=== PATIENT | male | born 1970 | race Two or more races ===

== ENCOUNTER 2018-05-12 11:33 | Emergency (ER) | payer MEDICAID, OTHER ==
[~2018-05-12] VITALS: Ht 165.1 cm; Wt 68.0 kg
[2018-05-12 11:43] VITALS: BP 150/100
[2018-05-12] MEDS ORDERED: LORazepam 2MG/ML-1ML VIAL IM ONE (12:30)
== END 2018-05-12 13:08 | disposition home or self-care (01) ==
LOC: ER 11:35
DX: F41.1 Generalized anxiety disorder (principal); M54.2 Cervicalgia
CPT/HCPCS: 96372; 99284; J2060

== ENCOUNTER 2018-06-24 10:36 | Emergency (ER) | payer MEDICAID ==
[~2018-06-24] VITALS: Ht 165.1 cm; Wt 65.8 kg
[2018-06-24] MEDS ORDERED: SODIUM CHLORIDE 0.9% 1,000 ML IV ONE (11:02)
[2018-06-24] MEDS ORDERED: PANTOPRAZOLE 40 MG/10 ML VIAL IV ONE (11:15)
[2018-06-24] MEDS ORDERED: ONDANSETRON HCL 4 MG/2 ML VIAL IV ONE (11:15)
[2018-06-24] MEDS ORDERED: KETOROLAC TROMETH 30 MG/ML 1ML VIAL IV ONE (11:15)
[2018-06-24] MEDS ORDERED: FAMOTIDINE (10MG/ML) 2ML VL IV ONE (12:15)
[2018-06-24 12:19] LABS: Calcium 7.9 mg/dL (8.5-10.1); Magnesium 2.3 mg/dL (1.6-2.6); Potassium 3.8 mmol/L (3.5-5.1)
[2018-06-24 12:23] LABS: BUN/Creatinine Ratio 4.3; Bilirubin, Total 0.6 mg/dL (0.2-1.0)
[2018-06-24 12:25] LABS: Basophils # (auto) 0.1 uL; Basophils % (auto) 1.6 % (0.0-2.0); Eosinophils # (auto) 0 uL; Eosinophils % (auto) 0.2 % (0.0-7.0); Hematocrit 41.7 % (41.0-53.0); Hemoglobin 14.3 g/dL (13.5-17.5); Lymphocytes # (auto) 1.4 uL; Lymphocytes % (auto) 38.5 % (10.0-50.0); Mean Corpuscular Hemoglobin 30.7 pg (28.0-32.0); Mean Corpuscular Hgb Conc. 34.3 g/dL (32.0-36.0); Mean Corpuscular Volume 89.3 fL (80.0-100.0); Monocytes # (auto) 0.2 uL; Monocytes % (auto) 5.9 % (0.0-12.0); Neutrophils # (auto) 1.9 uL; Neutrophils % (auto) 53.8 % (37.0-80.0); Nucleated Red Blood Cells % 0.2 %; Platelet Count (auto) 140 10^3/uL (140-450); Red Blood Cells 4.67 10^6/uL (4.5-5.90); Red Cell Distribution Width 12.8 % (11.8-14.3); White Blood Cell 3.5 10^3/uL (4.4-10.8)
[2018-06-24 14:23] VITALS: BP 139/88
== END 2018-06-24 14:25 | disposition home or self-care (01) ==
LOC: ER 10:36
DX: F41.9 Anxiety disorder, unspecified (principal); F10.10 Alcohol abuse, uncomplicated
CPT/HCPCS: 36415; 80053; 80320; 83735; 85025; 94761; 96374; 96375; 99284; J1885; J2405; J3490

== ENCOUNTER 2018-08-01 17:54 | Inpatient (IN) | payer MEDICAID | END 2018-08-10 18:15 | disposition home or self-care (01) | LOC: TELE-WESTW 08-08 06:42 → ER 17:54 → TELE 22:18 → ICU WEST 08-02 20:42 | PROC: 5A1955Z Respiratory Ventilation, Greater than 96 Consecutive Hours (ICD-10-PCS; principal; ~2018-08-01) | PROC: 0BH17EZ Insertion of Endotracheal Airway into Trachea, Via Natural or Artificial Opening (ICD-10-PCS; ~2018-08-01) | DX: T42.4X2A Poisoning by benzodiazepines, intentional self-harm, initial encounter (principal); J96.00 Acute respiratory failure, unspecified whether with hypoxia or hypercapnia; N17.0 Acute kidney failure with tubular necrosis; J69.0 Pneumonitis due to inhalation of food and vomit; G92 Toxic encephalopathy; J15.0 Pneumonia due to Klebsiella pneumoniae; F10.231 Alcohol dependence with withdrawal delirium; F12.90 Cannabis use, unspecified, uncomplicated; T14.91XA Suicide attempt, initial encounter; F32.9 Major depressive disorder, single episode, unspecified; F10.10 Alcohol abuse, uncomplicated; I95.9 Hypotension, unspecified; I50.9 Heart failure, unspecified ==

== ENCOUNTER 2018-12-06 18:46 | Emergency (ER) | payer MEDICAID ==
[~2018-12-06] VITALS: Ht 167.6 cm; Wt 67.1 kg
[~2018-12-06 18:46] MED LIST: LEVO750T2 PO
[2018-12-06 18:49] VITALS: BP 146/101
[2018-12-06 20:00] LABS: Alanine Aminotransferase 33 U/L (16-61); Albumin 4.1 g/dL (3.4-5.0); Anion Gap 7 (5-15); Aspartate Aminotransferase 43 U/L (15-37); BUN/Creatinine Ratio 17.1; Blood Urea Nitrogen 21 mg/dL (7-18); Calcium 8.4 mg/dL (8.5-10.1); Carbon Dioxide 21 mmol/L (21-32); Chloride 112 mmol/L (98-107); GFR African American 80 mL/min; GFR Non-African American 66 mL/min; Glucose 113 mg/dL (74-106); Potassium 3.6 mmol/L (3.5-5.1); Sodium 140 mmol/L (136-145)
[2018-12-06 20:02] LABS: Basophils # (auto) 0 uL; Basophils % (auto) 0.7 % (0.0-2.0); Eosinophils # (auto) 0.1 uL; Eosinophils % (auto) 2.3 % (0.0-7.0); Hematocrit 42.3 % (41.0-53.0); Hemoglobin 14.5 g/dL (13.5-17.5); Lymphocytes # (auto) 2.6 uL; Lymphocytes % (auto) 40.9 % (10.0-50.0); Mean Corpuscular Hemoglobin 30.8 pg (28.0-32.0); Mean Corpuscular Hgb Conc. 34.3 g/dL (32.0-36.0); Mean Corpuscular Volume 89.9 fL (80.0-100.0); Monocytes # (auto) 0.4 uL; Monocytes % (auto) 6.4 % (0.0-12.0); Neutrophils # (auto) 3.2 uL; Neutrophils % (auto) 49.7 % (37.0-80.0); Nucleated Red Blood Cells % 0.1 %; Platelet Count (auto) 208 10^3/uL (140-450); Red Blood Cells 4.71 10^6/uL (4.5-5.90); White Blood Cell 6.5 10^3/uL (4.4-10.8)
[2018-12-06 20:04] LABS: Alkaline Phosphatase 82 U/L (45-117); Bilirubin, Total 0.4 mg/dL (0.2-1.0)
== END 2018-12-06 23:00 | disposition left against medical advice (07) ==
LOC: ER 18:50
DX: R07.89 Other chest pain (principal); Z53.21 Procedure and treatment not carried out due to patient leaving prior to being seen by health care provider
CPT/HCPCS: 36415; 71046; 80053; 84484; 85025

== ENCOUNTER 2018-12-08 09:25 | Emergency (ER) | payer MEDICAID ==
[~2018-12-08] VITALS: Ht 165.1 cm; Wt 65.8 kg
[2018-12-08 09:31] VITALS: BP 158/94
[2018-12-08] MEDS ORDERED: ONDANSETRON ODT 4 MG TAB PO ONE (10:45)
[2018-12-08] MEDS ORDERED: DICYCLOMINE HCL (10MG/ML) 2 ML AMPULE IM ONE (10:45)
== END 2018-12-08 11:09 | disposition home or self-care (01) ==
LOC: ER 09:25
DX: K29.00 Acute gastritis without bleeding (principal)
CPT/HCPCS: 96372; 99283; J0500; Q0162

== ENCOUNTER 2019-05-01 03:22 | Emergency (ER) | payer MEDICAID ==
[~2019-05-01] VITALS: Ht 165.1 cm; Wt 74.2 kg
[2019-05-01 04:04] VITALS: BP 137/98
[2019-05-01 04:22] LABS: Basophils # (auto) 0 10 ^3/uL (0-0.2); Basophils % (auto) 0.6 % (0.0-2.0); Eosinophils # (auto) 0 10 ^3/uL (0-0.8); Eosinophils % (auto) 0.7 % (0.0-7.0); Hematocrit 42.8 % (41.0-53.0); Hemoglobin 14.6 g/dL (13.5-17.5); Lymphocytes # (auto) 1.4 10 ^3/uL (0.4-5.4); Lymphocytes % (auto) 22.1 % (10.0-50.0); Mean Corpuscular Hemoglobin 30.6 pg (28.0-32.0); Mean Corpuscular Hgb Conc. 34.2 g/dL (32.0-36.0); Mean Corpuscular Volume 89.7 fL (80.0-100.0); Monocytes # (auto) 0.3 10 ^3/uL (0-1.3); Neutrophils # (auto) 4.6 10 ^3/uL (1.6-8.6); Neutrophils % (auto) 71.6 % (37.0-80.0); Platelet Count (auto) 181 10^3/uL (140-450); Red Blood Cells 4.77 10^6/uL (4.5-5.90); Red Cell Distribution Width 13.3 % (11.8-14.3); White Blood Cell 6.4 10^3/uL (4.4-10.8)
[2019-05-01] MEDS ORDERED: LORazepam 2MG/ML-1ML VIAL IV ONE ×2 (04:30→05:45)
[2019-05-01] MEDS ORDERED: LORazepam 0.5 MG TAB PO ONE (04:30)
[2019-05-01 04:42] LABS: Albumin 4.2 g/dL (3.4-5.0); Potassium 3.6 mmol/L (3.5-5.1)
[2019-05-01 04:46] LABS: BUN/Creatinine Ratio 13.2; Bilirubin, Total 0.3 mg/dL (0.2-1.0); Total Protein 8.3 g/dL (6.4-8.2)
[2019-05-01 05:26] LABS: Amphetamine Screen, Urine NEGATIVE (NEGATIVE); Barbiturate Scree,Urine NEGATIVE (NEGATIVE); Benzodiazephine Screen, Urine NEGATIVE (NEGATIVE); Cannabinoid Screen, Urine NEGATIVE (NEGATIVE); Cocaine Screen, Urine NEGATIVE (NEGATIVE); Opiate Scree,Urine NEGATIVE (NEGATIVE); Phencyclidine Screen, Urine NEGATIVE (NEGATIVE)
== END 2019-05-01 05:55 | disposition home or self-care (01) ==
LOC: ER 03:29
DX: F41.1 Generalized anxiety disorder (principal); F43.0 Acute stress reaction; F10.20 Alcohol dependence, uncomplicated; F32.9 Major depressive disorder, single episode, unspecified; Y90.0 Blood alcohol level of less than 20 mg/100 ml
CPT/HCPCS: 36415; 80053; 80307; 85025; 96374; 96376; 99284; J2060

== ENCOUNTER 2020-08-28 14:13 | Emergency (ER) | payer MEDICAID ==
[~2020-08-28] VITALS: Ht 165.1 cm; Wt 65.8 kg
[~2020-08-28 14:13] MED LIST changes: -LEVO750T2 PO; +LEVO750T8 PO
[2020-08-28] MEDS ORDERED: SODIUM CHLORIDE 0.9% 500 ML IV ONE (14:30)
[2020-08-28] MEDS ORDERED: ACETYLCYSTEINE ORAL for CIN 20%(200MG/ML) 4ML PO ONE (14:45)
[2020-08-28 15:14] LABS: Basophils # (auto) 0.1 10 ^3/uL (0-0.2); Basophils % (auto) 1.8 % (0.0-2.0); Eosinophils # (auto) 0 10 ^3/uL (0-0.8); Eosinophils % (auto) 0.5 % (0.0-7.0); Hematocrit 40.3 % (41.0-53.0); Hemoglobin 14.3 g/dL (13.5-17.5); Lymphocytes % (auto) 45.4 % (10.0-50.0); Mean Corpuscular Hgb Conc. 35.5 g/dL (32.0-36.0); Mean Corpuscular Volume 87.4 fL (80.0-100.0); Monocytes # (auto) 0.3 10 ^3/uL (0-1.3); Monocytes % (auto) 5.7 % (0.0-12.0); Neutrophils # (auto) 2.1 10 ^3/uL (1.6-8.6); Neutrophils % (auto) 46.6 % (37.0-80.0); Nucleated Red Blood Cells % 0.1 %; Platelet Count (auto) 184 10^3/uL (140-450); Red Blood Cells 4.61 10^6/uL (4.5-5.90); Red Cell Distribution Width 13.8 % (11.8-14.3); White Blood Cell 4.5 10^3/uL (4.4-10.8)
[2020-08-28] MEDS ORDERED: ACETYLCYSTEINE 20%(200MG/ML) SOLN 30ML PO ONE (15:15)
[2020-08-28] MEDS ORDERED: ACETYLCYSTEINE 20%(200MG/ML) SOLN 30ML IN ONE (15:15)
[2020-08-28 15:21] LABS: Albumin 3.6 g/dL (3.4-5.0); BUN/Creatinine Ratio 8.5; Calcium 8.1 mg/dL (8.5-10.1); Magnesium 1.9 mg/dL (1.6-2.6); Potassium 3.8 mmol/L (3.5-5.1); Salicylate < 1.7 mg/dL (2.8-20.0)
[2020-08-28 15:23] LABS: Acetaminophen < 2.0 ug/mL (10-30)
[2020-08-28 15:24] LABS: Bilirubin, Total 0.3 mg/dL (0.2-1.0); Total Protein 7.8 g/dL (6.4-8.2)
[2020-08-28] MEDS ORDERED: ONDANSETRON HCL 4 MG/2 ML VIAL IV ONE ×2 (17:00→20:15)
[2020-08-28] MEDS ORDERED: ONDANSETRON HCL 4 MG/2 ML VIAL ONE (20:04)
[2020-08-29] MEDS ORDERED: LORazepam 2MG/ML-1ML VIAL IM ONE (01:15)
[2020-08-29] MEDS ORDERED: IBUPROFEN 800 MG TAB PO ONE (04:15)
[2020-08-29] MEDS: LORazepam 2MG/ML-1ML VIAL IM PRN ×3 (07:52→20:35)
[2020-08-29 08:40] LABS: Amphetamine Screen, Urine NEGATIVE (NEGATIVE); Barbiturate Scree,Urine NEGATIVE (NEGATIVE); Benzodiazephine Screen, Urine POSITIVE (NEGATIVE); Cocaine Screen, Urine NEGATIVE (NEGATIVE); Opiate Scree,Urine NEGATIVE (NEGATIVE); Phencyclidine Screen, Urine NEGATIVE (NEGATIVE)
[2020-08-29 08:47] LABS: Cannabinoid Screen, Urine POSITIVE (NEGATIVE)
[2020-08-30] MEDS: LORazepam 2MG/ML-1ML VIAL IM PRN ×3 (02:44→22:02)
[2020-08-30] MEDS ORDERED: ONDANSETRON ODT 4 MG TAB PO ONE (09:45)
[2020-08-30] MEDS ORDERED: SERTRALINE HCL 50 MG TAB PO ONE (09:45)
[2020-08-30] MEDS ORDERED: LORazepam 0.5 MG TAB PO ONE (14:00)
[2020-08-30] MEDS ORDERED: ACETAMINOPHEN 325 MG TAB PO ONE (20:00)
[2020-08-31] MEDS: LORazepam 2MG/ML-1ML VIAL IM PRN ×2 (05:17→14:04)
[2020-08-31] MEDS ORDERED: ONDANSETRON ODT 4 MG TAB PO ONE (12:00)
[2020-08-31 17:31] VITALS: BP 125/89
== END 2020-08-31 17:20 | disposition short-term general hospital (02) ==
LOC: ER 14:13
DX: T43.212A Poisoning by selective serotonin and norepinephrine reuptake inhibitors, intentional self-harm, initial encounter (principal); T45.0X2A Poisoning by antiallergic and antiemetic drugs, intentional self-harm, initial encounter; T39.1X2A Poisoning by 4-Aminophenol derivatives, intentional self-harm, initial encounter; F32.9 Major depressive disorder, single episode, unspecified; F41.9 Anxiety disorder, unspecified; Z79.2 Long term (current) use of antibiotics; Z20.822 Contact with and (suspected) exposure to COVID-19; Y92.89 Other specified places as the place of occurrence of the external cause
CPT/HCPCS: 36415; 80053; 80307; 80320; 80329; 83735; 85025; 85049; 87426; 93005; 96361; 96372; 96374; 96376; 99285; J2060; J2405; Q0162

== ENCOUNTER 2020-11-27 19:06 | Emergency (ER) | payer MEDICAID ==
[~2020-11-27] VITALS: Ht 167.6 cm; Wt 72.6 kg
[2020-11-27 19:09] VITALS: BP 143/96
== END 2020-11-27 21:50 | disposition left against medical advice (07) ==
LOC: ER 19:07
DX: R51.9 Headache, unspecified (principal); Z53.21 Procedure and treatment not carried out due to patient leaving prior to being seen by health care provider

== ENCOUNTER 2020-12-24 17:50 | Emergency (ER) | payer MEDICAID ==
[~2020-12-24] VITALS: Ht 167.6 cm; Wt 68.0 kg
[2020-12-24 20:14] VITALS: BP 149/104
== END 2020-12-24 20:30 | disposition home or self-care (01) ==
LOC: ER 17:50
DX: M17.11 Unilateral primary osteoarthritis, right knee (principal); D48.0 Neoplasm of uncertain behavior of bone and articular cartilage; Z79.2 Long term (current) use of antibiotics
CPT/HCPCS: 73562

== ENCOUNTER 2021-01-19 18:10 | Emergency (ER) | payer MEDICAID ==
[~2021-01-19] VITALS: Ht 165.1 cm; Wt 68.0 kg
[2021-01-20] MEDS ORDERED: LORazepam 2MG/ML-1ML VIAL IM ONE
[2021-01-20 01:40] VITALS: BP 134/95
== END 2021-01-20 01:51 | disposition home or self-care (01) ==
LOC: ER 18:11
DX: F41.8 Other specified anxiety disorders (principal); F41.0 Panic disorder [episodic paroxysmal anxiety]; F43.0 Acute stress reaction
CPT/HCPCS: 96372; 99283; J2060

== ENCOUNTER 2021-03-10 08:27 | Emergency (ER) | payer MEDICAID ==
[~2021-03-10] VITALS: Ht 165.1 cm; Wt 65.8 kg
[2021-03-10 09:21] VITALS: BP 165/91
[2021-03-10] MEDS ORDERED: NAPR500T31 PO (10:05)
== END 2021-03-10 10:29 | disposition home or self-care (01) ==
LOC: ER 08:27
DX: S01.312A Laceration without foreign body of left ear, initial encounter (principal); F41.9 Anxiety disorder, unspecified; F32.9 Major depressive disorder, single episode, unspecified; W01.0XXA Fall on same level from slipping, tripping and stumbling without subsequent striking against object, initial encounter; Y93.E1 Activity, personal bathing and showering; Y92.091 Bathroom in other non-institutional residence as the place of occurrence of the external cause; Y99.8 Other external cause status
CPT/HCPCS: 12011; 99282; J2001

== ENCOUNTER 2021-03-12 16:00 | Emergency (ER) | payer MEDICAID ==
[~2021-03-12] VITALS: Ht 165.1 cm; Wt 65.8 kg
[~2021-03-12 16:00] MED LIST changes: +NAPR500T31 PO
[2021-03-12 16:06] VITALS: BP 141/100
[2021-03-12] MEDS ORDERED: THIAMINE 100mg/ml INJ (200mg/2ml VIAL) IV ONE (17:00)
[2021-03-12] MEDS ORDERED: chlordiazePOXIDE HCL 25 MG CAP PO ONE (17:00)
[2021-03-12] MEDS ORDERED: SODIUM CHLORIDE 0.9% 1,000 ML IV ONE ×2 (17:00)
[2021-03-12 18:43] LABS: Mean Corpuscular Volume 86.8 fL (80.0-100.0); Red Cell Distribution Width 13.6 % (11.8-14.3)
[2021-03-12 18:55] LABS: Basophils # (auto) 0 10 ^3/uL (0-0.2); Basophils % (auto) 0.8 % (0.0-2.0); Eosinophils # (auto) 0 10 ^3/uL (0-0.8); Eosinophils % (auto) 0.2 % (0.0-7.0); Hematocrit 38.6 % (41.0-53.0); Hemoglobin 13.1 g/dL (13.5-17.5); Lymphocytes # (auto) 1.7 10 ^3/uL (0.4-5.4); Lymphocytes % (auto) 28.2 % (10.0-50.0); Mean Corpuscular Hemoglobin 29.4 pg (28.0-32.0); Mean Corpuscular Hgb Conc. 33.9 g/dL (32.0-36.0); Monocytes # (auto) 0.3 10 ^3/uL (0-1.3); Monocytes % (auto) 4.7 % (0.0-12.0); Neutrophils % (auto) 66.1 % (37.0-80.0); Nucleated Red Blood Cells % 0.2 %; Red Blood Cells 4.45 10^6/uL (4.5-5.90); White Blood Cell 6.1 10^3/uL (4.4-10.8)
[2021-03-12 18:56] LABS: Albumin 3.4 g/dL (3.4-5.0); BUN/Creatinine Ratio 6.5; Calcium 8.1 mg/dL (8.5-10.1); Potassium 3.8 mmol/L (3.5-5.1)
[2021-03-12 18:59] LABS: Bilirubin, Total 0.3 mg/dL (0.2-1.0); Total Protein 7.5 g/dL (6.4-8.2)
== END 2021-03-13 06:12 | disposition home or self-care (01) ==
LOC: ER 16:00
DX: F10.129 Alcohol abuse with intoxication, unspecified (principal); F12.10 Cannabis abuse, uncomplicated; R11.2 Nausea with vomiting, unspecified; R42 Dizziness and giddiness; R55 Syncope and collapse; Y90.8 Blood alcohol level of 240 mg/100 ml or more
CPT/HCPCS: 36415; 70450; 80053; 80320; 85025; 96361; 96374; 99284; J3411; J7030

== ENCOUNTER 2021-03-25 13:35 | Emergency (ER) | payer MEDICAID ==
[~2021-03-25] VITALS: Ht 167.6 cm; Wt 65.8 kg
[2021-03-25 14:07] VITALS: BP 143/86
[2021-03-25] MEDS ORDERED: SULF400T11 PO (14:24)
[2021-03-25] MEDS ORDERED: LIDOCAINE 1% HCL (LOCAL ANESTH.) INJ 20ML MDV ONE (14:29)
[2021-03-25] MEDS ORDERED: cefTRIAXone SOD 1,000 MG VL IM ONE (14:30)
== END 2021-03-25 14:42 | disposition home or self-care (01) ==
LOC: ER 13:35
DX: L02.512 Cutaneous abscess of left hand (principal)
CPT/HCPCS: 26010; 73130; 96372; 99283; J0696; J2001

== ENCOUNTER 2021-03-27 12:51 | Emergency (ER) | payer MEDICAID ==
[~2021-03-27] VITALS: Ht 167.6 cm; Wt 65.8 kg
[~2021-03-27 12:51] MED LIST changes: +SULF400T11 PO
[2021-03-27 13:28] VITALS: BP 154/97
== END 2021-03-27 14:49 | disposition home or self-care (01) ==
LOC: ER 12:51
DX: L02.512 Cutaneous abscess of left hand (principal); F12.10 Cannabis abuse, uncomplicated; Z48.00 Encounter for change or removal of nonsurgical wound dressing; Z76.0 Encounter for issue of repeat prescription

== ENCOUNTER 2021-06-06 12:26 | Emergency (ER) | payer MEDICAID ==
[~2021-06-06] VITALS: Ht 167.6 cm; Wt 65.8 kg
[2021-06-06 15:00] VITALS: BP 127/86
== END 2021-06-06 15:30 | disposition home or self-care (01) ==
LOC: ER 12:26
DX: S63.502A Unspecified sprain of left wrist, initial encounter (principal); S63.92XA Sprain of unspecified part of left wrist and hand, initial encounter; Y93.89 Activity, other specified; Y92.89 Other specified places as the place of occurrence of the external cause; Y99.8 Other external cause status
CPT/HCPCS: 29125; 73130

== ENCOUNTER 2021-09-24 16:13 | Emergency (ER) | payer MEDICAID ==
[~2021-09-24] VITALS: Ht 167.6 cm; Wt 68.1 kg
[2021-09-24 17:22] LABS: Basophils # (auto) 0.1 10 ^3/uL (0-0.2); Basophils % (auto) 0.9 % (0.0-2.0); Eosinophils # (auto) 0 10 ^3/uL (0-0.8); Eosinophils % (auto) 0.4 % (0.0-7.0); Hemoglobin 14.7 g/dL (13.5-17.5); Lymphocytes # (auto) 2.1 10 ^3/uL (0.4-5.4); Lymphocytes % (auto) 32.6 % (10.0-50.0); Mean Corpuscular Hemoglobin 28.3 pg (28.0-32.0); Mean Corpuscular Hgb Conc. 32.8 g/dL (32.0-36.0); Mean Corpuscular Volume 86.5 fL (80.0-100.0); Monocytes # (auto) 0.4 10 ^3/uL (0-1.3); Monocytes % (auto) 5.3 % (0.0-12.0); Neutrophils % (auto) 60.8 % (37.0-80.0); Nucleated Red Blood Cells % 0.1 %; Red Cell Distribution Width 14.7 % (11.8-14.3); White Blood Cell 6.6 10^3/uL (4.4-10.8)
[2021-09-24 17:35] LABS: Alanine Aminotransferase 65 U/L (16-61); Albumin 4.5 g/dL (3.4-5.0); Anion Gap 8 (5-15); Aspartate Aminotransferase 74 U/L (15-37); BUN/Creatinine Ratio 20.7; Blood Alcohol < 3.0 mg/dL (0-5); Blood Urea Nitrogen 24 mg/dL (7-18); Carbon Dioxide 21 mmol/L (21-32); Chloride 106 mmol/L (98-107); GFR African American 85 mL/min; GFR Non-African American 70 mL/min; Glucose 96 mg/dL (74-106); Potassium 4.1 mmol/L (3.5-5.1); Sodium 135 mmol/L (136-145)
[2021-09-24 17:38] LABS: Alkaline Phosphatase 91 U/L (45-117); Bilirubin, Total 0.4 mg/dL (0.2-1.0)
[2021-09-24] MEDS ORDERED: LORazepam 2MG/ML-1ML VIAL IM ONE (18:30)
[2021-09-24] MEDS ORDERED: CHL25C PO (18:42)
[2021-09-24 19:00] VITALS: BP 130/84
[2021-09-24] MEDS ORDERED: MIDAZOLAM HCL 5 MG/ML-1ML VIAL IM ONE (19:45)
[2021-09-24 20:25] LABS: Urine Bacteria NONE SEEN /hpf (None Seen); Urine Blood Negative /uL (Negative); Urine Specific Gravity 1.019 (1.001-1.035); Urine Sperm PRESENT /hpf (None Seen); Urine WBC 2 /hpf (0 - 3)
[2021-09-24 20:43] LABS: Alcohol, Urine < 3.0 mg/dL (0-10); Barbiturate Scree,Urine NEGATIVE (NEGATIVE); Benzodiazephine Screen, Urine POSITIVE (NEGATIVE); Cannabinoid Screen, Urine NEGATIVE (NEGATIVE); Cocaine Screen, Urine NEGATIVE (NEGATIVE); Opiate Scree,Urine NEGATIVE (NEGATIVE); Phencyclidine Screen, Urine NEGATIVE (NEGATIVE)
[2021-09-24 20:50] LABS: Amphetamine Screen, Urine NEGATIVE (NEGATIVE)
== END 2021-09-24 19:48 | disposition home or self-care (01) ==
LOC: ER 16:13
DX: F10.239 Alcohol dependence with withdrawal, unspecified (principal); Z79.2 Long term (current) use of antibiotics; Z79.899 Other long term (current) drug therapy; Y90.0 Blood alcohol level of less than 20 mg/100 ml
CPT/HCPCS: 36415; 80053; 80307; 80320; 81001; 85025; 93005; 96372; 99284; J2250

== ENCOUNTER 2022-01-10 14:59 | Emergency (ER) | payer MEDICAID ==
[~2022-01-10] VITALS: Ht 167.6 cm; Wt 64.0 kg
[~2022-01-10 14:59] MED LIST changes: +CHL25C PO
[2022-01-10] MEDS ORDERED: ONDANSETRON ODT 4 MG TAB PO ONE (15:30)
[2022-01-10] MEDS ORDERED: chlordiazePOXIDE HCL 25 MG CAP PO ONE (15:30)
[2022-01-10 15:48] LABS: Basophils # (auto) 0.1 10 ^3/uL (0-0.2); Basophils % (auto) 0.5 % (0.0-2.0); Eosinophils # (auto) 0 10 ^3/uL (0-0.8); Eosinophils % (auto) 0.3 % (0.0-7.0); Hematocrit 41.2 % (41.0-53.0); Lymphocytes # (auto) 2.8 10 ^3/uL (0.4-5.4); Lymphocytes % (auto) 29.6 % (10.0-50.0); Mean Corpuscular Hemoglobin 29.9 pg (28.0-32.0); Mean Corpuscular Hgb Conc. 33.9 g/dL (32.0-36.0); Mean Corpuscular Volume 88.1 fL (80.0-100.0); Monocytes # (auto) 0.5 10 ^3/uL (0-1.3); Monocytes % (auto) 5.3 % (0.0-12.0); Neutrophils # (auto) 6.1 10 ^3/uL (1.6-8.6); Neutrophils % (auto) 64.3 % (37.0-80.0); Red Blood Cells 4.67 10^6/uL (4.5-5.90); Red Cell Distribution Width 14.4 % (11.8-14.3); White Blood Cell 9.5 10^3/uL (4.4-10.8)
[2022-01-10 15:59] VITALS: BP 139/103
[2022-01-10 16:08] LABS: Albumin 3.7 g/dL (3.4-5.0); Anion Gap 8 (5-15); Blood Urea Nitrogen 11 mg/dL (7-18); Carbon Dioxide 23 mmol/L (21-32); Chloride 108 mmol/L (98-107); Glucose 124 mg/dL (74-106); Potassium 3.4 mmol/L (3.5-5.1); Sodium 139 mmol/L (136-145)
[2022-01-10 16:10] LABS: Alanine Aminotransferase 53 U/L (16-61); Aspartate Aminotransferase 39 U/L (15-37); BUN/Creatinine Ratio 9.7; Blood Alcohol < 3.0 mg/dL (0-5); GFR African American 87 mL/min; GFR Non-African American 72 mL/min
[2022-01-10 16:13] LABS: Alkaline Phosphatase 96 U/L (45-117); Bilirubin, Total 0.4 mg/dL (0.2-1.0); Total Protein 7.8 g/dL (6.4-8.2)
[2022-01-10 16:36] LABS: Urine Bacteria NONE SEEN /hpf (None Seen); Urine Blood Negative /uL (Negative); Urine Specific Gravity 1.007 (1.001-1.035); Urine WBC <1 /hpf (0 - 3)
[2022-01-10] MEDS ORDERED: ONDA-144 PO (16:41)
[2022-01-10] MEDS ORDERED: CHL10C PO (16:41)
== END 2022-01-10 19:16 | disposition home or self-care (01) ==
LOC: ER 14:59
DX: F10.239 Alcohol dependence with withdrawal, unspecified (principal); I10 Essential (primary) hypertension; Z79.899 Other long term (current) drug therapy; Z79.2 Long term (current) use of antibiotics; Y90.0 Blood alcohol level of less than 20 mg/100 ml
CPT/HCPCS: 36415; 80053; 80320; 81001; 85025

== ENCOUNTER 2022-08-05 11:25 | Emergency (ER) | payer MEDICAID ==
[~2022-08-05] VITALS: Ht 167.6 cm; Wt 76.6 kg
[~2022-08-05 11:25] MED LIST changes: +CHL10C PO; +NAPR-746 PO; -NAPR500T31 PO; +ONDA-144 PO
[2022-08-05 12:21] VITALS: BP 151/100
== END 2022-08-05 12:46 | disposition home or self-care (01) ==
LOC: ER 11:25
DX: K13.1 Cheek and lip biting (principal); F41.9 Anxiety disorder, unspecified; F32.9 Major depressive disorder, single episode, unspecified; I10 Essential (primary) hypertension; F12.10 Cannabis abuse, uncomplicated; Z88.6 Allergy status to analgesic agent

== ENCOUNTER 2022-08-11 23:35 | Inpatient (IN) | payer MEDICAID ==
[~2022-08-11] VITALS: Ht 175.3 cm; Wt 70.0 kg
[2022-08-12] MEDS ORDERED: SODIUM CHLORIDE 0.9% 1,000 ML IV ONE (00:15)
[2022-08-12 01:05] LABS: Albumin 3.8 g/dL (3.4-5.0); BUN/Creatinine Ratio 10.4 (10.0-20.0); Calcium 8.3 mg/dL (8.5-10.1); Magnesium 2.3 mg/dL (1.6-2.6)
[2022-08-12 01:07] LABS: Acetaminophen < 2.0 ug/mL (10-30)
[2022-08-12 01:12] LABS: Bilirubin, Total 0.6 mg/dL (0.2-1.0); Total Protein 8.7 g/dL (6.4-8.2)
[2022-08-12 01:43] LABS: Basophils # (auto) 0 10 ^3/uL (0-0.2); Basophils % (auto) 0.2 % (0.0-2.0); Eosinophils # (auto) 0 10 ^3/uL (0-0.8); Hematocrit 41.6 % (41.0-53.0); Hemoglobin 14.4 g/dL (13.5-17.5); Lymphocytes # (auto) 2.6 10 ^3/uL (0.4-5.4); Lymphocytes % (auto) 20.4 % (10.0-50.0); Mean Corpuscular Hemoglobin 30.4 pg (28.0-32.0); Mean Corpuscular Hgb Conc. 34.5 g/dL (32.0-36.0); Mean Corpuscular Volume 88.1 fL (80.0-100.0); Monocytes # (auto) 0.7 10 ^3/uL (0-1.3); Monocytes % (auto) 5.2 % (0.0-12.0); Neutrophils # (auto) 9.5 10 ^3/uL (1.6-8.6); Neutrophils % (auto) 74.2 % (37.0-80.0); Red Blood Cells 4.72 10^6/uL (4.5-5.90); Red Cell Distribution Width 13.5 % (11.8-14.3); White Blood Cell 12.9 10^3/uL (4.4-10.8)
[2022-08-12] MEDS ORDERED: ONDANSETRON HCL 4 MG/2 ML VIAL IV ONE (02:15)
[2022-08-12] MEDS ORDERED: MORPHINE SULFATE INJ 2 MG/ml SYRG IV ONE (02:15)
[2022-08-12] MEDS ORDERED: LORazepam 2MG/ML-1ML VIAL IV ONE (02:45)
[2022-08-12] MEDS ORDERED: chlordiazePOXIDE HCL 25 MG CAP PO ONE (05:30)
[2022-08-12] MEDS ORDERED: DOCUSATE SOD 100 MG CAP PO PRN (05:30)
[2022-08-12] MEDS ORDERED: ACETAMINOPHEN 325 MG TAB PO PRN (05:30)
[2022-08-12] MEDS ORDERED: AZITHROMYCIN 500MG/ 250ML 250 ML IV ONE (05:30)
[2022-08-12] MEDS ORDERED: NITROGLYCERIN 0.4 MG SL TAB SL PRN (06:30)
[2022-08-12] MEDS: LORazepam 2MG/ML-1ML VIAL IV PRN ×5 (06:32→20:36)
[2022-08-12] MEDS: SODIUM CHLORIDE 0.9% 1,000 ML IV SCH ×2 (06:32→21:54)
[2022-08-12 07:07] LABS: Albumin 3.6 g/dL (3.4-5.0); Calcium 8.1 mg/dL (8.5-10.1); Potassium 4.1 mmol/L (3.5-5.1)
[2022-08-12 07:11] LABS: BUN/Creatinine Ratio 11.1 (10.0-20.0); Bilirubin, Total 0.8 mg/dL (0.2-1.0); Total Protein 8.1 g/dL (6.4-8.2)
[2022-08-12 07:25] LABS: Basophils # (auto) 0 10 ^3/uL (0-0.2); Basophils % (auto) 0.4 % (0.0-2.0); Eosinophils # (auto) 0 10 ^3/uL (0-0.8); Eosinophils % (auto) 0.1 % (0.0-7.0); Hematocrit 39.4 % (41.0-53.0); Hemoglobin 13.6 g/dL (13.5-17.5); Lymphocytes # (auto) 1.6 10 ^3/uL (0.4-5.4); Lymphocytes % (auto) 17.9 % (10.0-50.0); Mean Corpuscular Hemoglobin 30.2 pg (28.0-32.0); Mean Corpuscular Hgb Conc. 34.6 g/dL (32.0-36.0); Mean Corpuscular Volume 87.2 fL (80.0-100.0); Monocytes # (auto) 0.6 10 ^3/uL (0-1.3); Monocytes % (auto) 6.5 % (0.0-12.0); Neutrophils # (auto) 6.5 10 ^3/uL (1.6-8.6); Neutrophils % (auto) 75.1 % (37.0-80.0); Nucleated Red Blood Cells % 0.1 %; Red Blood Cells 4.52 10^6/uL (4.5-5.90); White Blood Cell 8.7 10^3/uL (4.4-10.8)
[2022-08-12] MEDS: ONDANSETRON HCL 4 MG/2 ML VIAL IV PRN ×2 (07:54→21:53)
[2022-08-12] MEDS: FOLIC ACID 1 MG TAB PO SCH (09:37)
[2022-08-12] MEDS: MULTIPLE VITAMIN TAB PO SCH (09:38)
[2022-08-12] MEDS: THIAMINE HCL 100 MG TAB PO SCH (09:38)
[2022-08-12] MEDS: HEPARIN SODIUM (PORCINE) 5000 UNITS/ML 1ML VIAL SC SCH ×2 (10:13→21:54)
[2022-08-12] MEDS: MORPHINE SULFATE INJ 2 MG/ml SYRG IV PRN ×2 (12:07→21:53)
[2022-08-12] MEDS: HYDROcodone-ACET 5/325MG TAB PO PRN (16:49)
[2022-08-12] MEDS: chlordiazePOXIDE HCL 5 MG CAP PO PRN (21:53)
[2022-08-12] MEDS: GABAPENTIN 300 MG CAP PO SCH (21:53)
[2022-08-13] MEDS: LORazepam 2MG/ML-1ML VIAL IV PRN ×3 (00:05→11:44)
[2022-08-13 02:00] VITALS: BP 128/81
[2022-08-13] MEDS: GABAPENTIN 300 MG CAP PO SCH (06:28)
[2022-08-13 07:03] LABS: Albumin 3.5 g/dL (3.4-5.0); Calcium 8.8 mg/dL (8.5-10.1)
[2022-08-13 07:05] LABS: BUN/Creatinine Ratio 13.8 (10.0-20.0); Bilirubin, Total 0.9 mg/dL (0.2-1.0); Total Protein 7.5 g/dL (6.4-8.2)
[2022-08-13] MEDS: HYDROcodone-ACET 5/325MG TAB PO PRN (08:05)
[2022-08-13] MEDS: chlordiazePOXIDE HCL 5 MG CAP PO PRN (08:05)
[2022-08-13 08:12] LABS: Basophils # (auto) 0 10 ^3/uL (0-0.2); Basophils % (auto) 0.6 % (0.0-2.0); Eosinophils # (auto) 0.1 10 ^3/uL (0-0.8); Eosinophils % (auto) 1.3 % (0.0-7.0); Hematocrit 38.2 % (41.0-53.0); Hemoglobin 13.3 g/dL (13.5-17.5); Lymphocytes # (auto) 2.6 10 ^3/uL (0.4-5.4); Lymphocytes % (auto) 39.9 % (10.0-50.0); Mean Corpuscular Hemoglobin 30.5 pg (28.0-32.0); Mean Corpuscular Hgb Conc. 34.8 g/dL (32.0-36.0); Mean Corpuscular Volume 87.5 fL (80.0-100.0); Monocytes # (auto) 0.6 10 ^3/uL (0-1.3); Monocytes % (auto) 8.4 % (0.0-12.0); Neutrophils # (auto) 3.3 10 ^3/uL (1.6-8.6); Neutrophils % (auto) 49.8 % (37.0-80.0); Nucleated Red Blood Cells % 0.2 %; Red Blood Cells 4.36 10^6/uL (4.5-5.90); White Blood Cell 6.6 10^3/uL (4.4-10.8)
[2022-08-13] MEDS ORDERED: PANT40T PO (09:46)
[2022-08-13] MEDS ORDERED: CHL25C PO (09:46)
[2022-08-13] MEDS ORDERED: ESCI10TA PO (09:46)
[2022-08-13] MEDS ORDERED: GABA-1250 PO (09:46)
[2022-08-13] MEDS ORDERED: AZITHROMYCIN 500MG/ 250ML 250 ML IV SCH (10:00)
[2022-08-13] MEDS: HEPARIN SODIUM (PORCINE) 5000 UNITS/ML 1ML VIAL SC SCH (10:57)
[2022-08-13] MEDS: MULTIPLE VITAMIN TAB PO SCH (10:57)
[2022-08-13] MEDS: THIAMINE HCL 100 MG TAB PO SCH (10:57)
[2022-08-13] MEDS: FOLIC ACID 1 MG TAB PO SCH (10:57)
== END 2022-08-13 12:06 | disposition home or self-care (01) | DRG 241 ==
LOC: ER 23:35 → EDBD 23:35 → TELE 08-12 06:27
PROVIDERS: ADMIT Nurse Practitioner Family; ATTEND Hospitalist
DX: K29.00 Acute gastritis without bleeding (principal); N17.9 Acute kidney failure, unspecified; E46 Unspecified protein-calorie malnutrition; F10.239 Alcohol dependence with withdrawal, unspecified; R79.89 Other specified abnormal findings of blood chemistry; F32.A Depression, unspecified; I10 Essential (primary) hypertension; F10.229 Alcohol dependence with intoxication, unspecified; F41.9 Anxiety disorder, unspecified; Z68.22 Body mass index [BMI] 22.0-22.9, adult
CPT/HCPCS: 36415; 74176; 78582; 80053; 80320; 80329; 83735; 84484; 85025; 96361; 96365; 96375; G0378; J2405

== ENCOUNTER 2022-08-17 14:56 | Emergency (ER) | payer MEDICAID ==
[~2022-08-17] VITALS: Ht 167.6 cm; Wt 76.7 kg
[~2022-08-17 14:56] MED LIST changes: +ESCI10TA PO; +GABA-1250 PO; +PANT40T PO
[2022-08-17 15:39] LABS: Urine WBC None Seen /hpf (0 - 3)
[2022-08-17 16:01] LABS: Urine Bacteria NONE SEEN /hpf (None Seen); Urine Blood Negative /uL (Negative); Urine Specific Gravity 1.003 (1.001-1.035)
[2022-08-17] MEDS ORDERED: LORazepam 2MG/ML-1ML VIAL IM ONE (16:30)
[2022-08-17 17:08] LABS: Basophils # (auto) 0.1 10 ^3/uL (0-0.2); Basophils % (auto) 0.8 % (0.0-2.0); Eosinophils # (auto) 0 10 ^3/uL (0-0.8); Eosinophils % (auto) 0.6 % (0.0-7.0); Hematocrit 41.3 % (41.0-53.0); Hemoglobin 13.9 g/dL (13.5-17.5); Lymphocytes # (auto) 2.5 10 ^3/uL (0.4-5.4); Lymphocytes % (auto) 35.2 % (10.0-50.0); Mean Corpuscular Hgb Conc. 33.5 g/dL (32.0-36.0); Mean Corpuscular Volume 89.7 fL (80.0-100.0); Monocytes # (auto) 0.4 10 ^3/uL (0-1.3); Monocytes % (auto) 5.1 % (0.0-12.0); Neutrophils # (auto) 4.1 10 ^3/uL (1.6-8.6); Neutrophils % (auto) 58.3 % (37.0-80.0); Red Blood Cells 4.61 10^6/uL (4.5-5.90); Red Cell Distribution Width 13.3 % (11.8-14.3)
[2022-08-17 17:15] VITALS: BP 150/100
[2022-08-17 17:33] LABS: Albumin 3.8 g/dL (3.4-5.0); Potassium 3.9 mmol/L (3.5-5.1)
[2022-08-17 17:36] LABS: BUN/Creatinine Ratio 14.5 (10.0-20.0); Bilirubin, Total 0.3 mg/dL (0.2-1.0); Total Protein 7.7 g/dL (6.4-8.2)
== END 2022-08-17 21:57 | disposition home or self-care (01) ==
LOC: ER 14:56
DX: F41.9 Anxiety disorder, unspecified (principal); F10.939 Alcohol use, unspecified with withdrawal, unspecified; F41.0 Panic disorder [episodic paroxysmal anxiety]; F32.9 Major depressive disorder, single episode, unspecified; I10 Essential (primary) hypertension; F15.90 Other stimulant use, unspecified, uncomplicated; Z79.899 Other long term (current) drug therapy; Y90.9 Presence of alcohol in blood, level not specified
CPT/HCPCS: 36415; 71045; 80053; 81001; 84484; 85025; 93005; 96372; 99285; J2060

== ENCOUNTER 2022-08-23 15:36 | Emergency (ER) | payer MEDICAID ==
[~2022-08-23] VITALS: Ht 167.6 cm; Wt 75.2 kg
[2022-08-23 16:15] VITALS: BP 119/92
[2022-08-23] MEDS: LORazepam 2MG/ML-1ML VIAL IM ONE ×2 (16:49→16:51)
== END 2022-08-23 17:33 | disposition home or self-care (01) ==
LOC: ER 15:36
DX: F41.9 Anxiety disorder, unspecified (principal); G47.00 Insomnia, unspecified; F10.20 Alcohol dependence, uncomplicated; F12.10 Cannabis abuse, uncomplicated; F32.9 Major depressive disorder, single episode, unspecified; I10 Essential (primary) hypertension; Y90.9 Presence of alcohol in blood, level not specified
CPT/HCPCS: 96372; 99283; J2060

== ENCOUNTER 2022-08-31 15:24 | Emergency (ER) | payer MEDICAID ==
[~2022-08-31] VITALS: Ht 167.6 cm; Wt 66.0 kg
[2022-08-31 15:51] LABS: Urine WBC None Seen /hpf (0 - 3)
[2022-08-31 16:03] LABS: Urine Bacteria NONE SEEN /hpf (None Seen); Urine Blood Negative /uL (Negative); Urine Mucus FEW (None Seen); Urine Specific Gravity 1.025 (1.001-1.035)
[2022-08-31] MEDS ORDERED: LORazepam 0.5 MG TAB PO ONE (16:15)
[2022-08-31 16:52] LABS: Calcium 8.9 mg/dL (8.5-10.1); Potassium 3.8 mmol/L (3.5-5.1)
[2022-08-31 16:54] LABS: Basophils # (auto) 0 10 ^3/uL (0-0.2); Basophils % (auto) 0.6 % (0.0-2.0); Eosinophils # (auto) 0 10 ^3/uL (0-0.8); Eosinophils % (auto) 0.1 % (0.0-7.0); Hematocrit 40.4 % (41.0-53.0); Hemoglobin 13.5 g/dL (13.5-17.5); Lymphocytes # (auto) 1.5 10 ^3/uL (0.4-5.4); Lymphocytes % (auto) 21.7 % (10.0-50.0); Mean Corpuscular Hemoglobin 29.9 pg (28.0-32.0); Mean Corpuscular Hgb Conc. 33.4 g/dL (32.0-36.0); Mean Corpuscular Volume 89.7 fL (80.0-100.0); Monocytes # (auto) 0.3 10 ^3/uL (0-1.3); Monocytes % (auto) 3.7 % (0.0-12.0); Neutrophils # (auto) 5.1 10 ^3/uL (1.6-8.6); Neutrophils % (auto) 73.9 % (37.0-80.0); Nucleated Red Blood Cells % 0.1 %; Red Blood Cells 4.51 10^6/uL (4.5-5.90); Red Cell Distribution Width 13.7 % (11.8-14.3); White Blood Cell 6.9 10^3/uL (4.4-10.8)
[2022-08-31 16:56] LABS: BUN/Creatinine Ratio 21.7 (10.0-20.0); Bilirubin, Total 0.4 mg/dL (0.2-1.0); Total Protein 7.8 g/dL (6.4-8.2)
[2022-08-31 17:39] VITALS: BP 125/74
== END 2022-08-31 17:13 | disposition home or self-care (01) ==
LOC: ER 15:24
DX: F41.9 Anxiety disorder, unspecified (principal); F12.10 Cannabis abuse, uncomplicated; F32.9 Major depressive disorder, single episode, unspecified; R94.31 Abnormal electrocardiogram [ECG] [EKG]
CPT/HCPCS: 36415; 80053; 81001; 85025; 93005

== ENCOUNTER 2023-05-03 18:10 | Emergency (ER) | payer MEDICAID ==
[~2023-05-03] VITALS: Ht 167.6 cm; Wt 75.5 kg
[2023-05-03] MEDS ORDERED: ESCI20TA PO (19:48)
[2023-05-03] MEDS: LORazepam 2MG/ML-1ML VIAL IM ONE (20:03)
[2023-05-03 20:10] VITALS: BP 122/72; PULSE 95; RESP 20; TEMP 98.2; O2SAT 96
== END 2023-05-03 20:10 | disposition home or self-care (01) ==
LOC: ER 18:27
DX: F32.9 Major depressive disorder, single episode, unspecified (principal); F41.9 Anxiety disorder, unspecified; F15.90 Other stimulant use, unspecified, uncomplicated; Z79.899 Other long term (current) drug therapy
CPT/HCPCS: 96372; 99283; J2060

== ENCOUNTER 2023-05-04 18:44 | Emergency (ER) | payer MEDICAID ==
[~2023-05-04] VITALS: Ht 167.6 cm; Wt 70.0 kg
[~2023-05-04 18:44] MED LIST changes: +ESCI20TA PO
[2023-05-04 19:46] VITALS: BP 140/95; PULSE 83; RESP 18; O2SAT 98
[2023-05-04 20:39] LABS: Basophils # (auto) 0.1 10 ^3/uL (0-0.2); Basophils % (auto) 0.7 % (0.0-2.0); Eosinophils # (auto) 0 10 ^3/uL (0-0.8); Eosinophils % (auto) 0.3 % (0.0-7.0); Hematocrit 44.4 % (41.0-53.0); Hemoglobin 14.7 g/dL (13.5-17.5); Lymphocytes # (auto) 3.2 10 ^3/uL (0.4-5.4); Lymphocytes % (auto) 36.2 % (10.0-50.0); Mean Corpuscular Hgb Conc. 33.1 g/dL (32.0-36.0); Mean Corpuscular Volume 90.6 fL (80.0-100.0); Monocytes # (auto) 0.3 10 ^3/uL (0-1.3); Monocytes % (auto) 3.7 % (0.0-12.0); Neutrophils # (auto) 5.2 10 ^3/uL (1.6-8.6); Neutrophils % (auto) 59.1 % (37.0-80.0); Red Blood Cells 4.91 10^6/uL (4.5-5.90); Red Cell Distribution Width 13.5 % (11.8-14.3); White Blood Cell 8.8 10^3/uL (4.4-10.8)
[2023-05-04 20:48] LABS: Chloride 110 mmol/L (98-107); Potassium 3.5 mmol/L (3.5-5.1); Sodium 138 mmol/L (136-145)
[2023-05-04 20:49] LABS: Anion Gap 8 (5-15); Calcium 9.3 mg/dL (8.5-10.1); Carbon Dioxide 20 mmol/L (20-30)
[2023-05-04 20:54] LABS: Blood Alcohol 195.3 mg/dL (<10); Blood Urea Nitrogen 9 mg/dL (9-23); Glucose 139 mg/dL (74-106)
[2023-05-04 21:07] LABS: Urine Bacteria NONE SEEN /hpf (None Seen); Urine Blood Negative /uL (Negative); Urine Clarity Clear (Clear); Urine Color Colorless (Yellow); Urine Protein, UAD Negative (Negative); Urine Specific Gravity 1.003 (1.001-1.035); Urine Urobilinogen Normal (Negative); Urine WBC 1 /hpf (0 - 3); Urine pH 5.5 (5.0-8.0)
[2023-05-04 21:15] LABS: Amphetamine Screen, Urine Neg (NEGATIVE); Barbiturate Scree,Urine Neg (NEGATIVE); Benzodiazephine Screen, Urine Neg (NEGATIVE); Cannabinoid Screen, Urine Pos (NEGATIVE); Cocaine Screen, Urine Neg (NEGATIVE); Opiate Scree,Urine Neg (NEGATIVE); Phencyclidine Screen, Urine Neg (NEGATIVE)
[2023-05-04] MEDS ORDERED: SODIUM CHLORIDE 0.9% 1,000 ML IV ONE (23:30)
== END 2023-05-04 23:56 | disposition left against medical advice (07) ==
LOC: ER 18:44
DX: F32.9 Major depressive disorder, single episode, unspecified (principal); F41.9 Anxiety disorder, unspecified; F12.10 Cannabis abuse, uncomplicated; Z79.899 Other long term (current) drug therapy
CPT/HCPCS: 36415; 80048; 80307; 80320; 81001; 85025

== ENCOUNTER 2023-12-05 19:09 | Emergency (ER) | payer MEDICAID ==
[~2023-12-05] VITALS: Ht 167.6 cm; Wt 74.4 kg
[2023-12-05 21:04] LABS: Urine Bacteria None Seen /hpf (None Seen)
[2023-12-05 21:10] LABS: Basophils # (auto) 0.1 10 ^3/uL (0-0.2); Eosinophils # (auto) 0.1 10 ^3/uL (0-0.8); Eosinophils % (auto) 0.9 % (0.0-7.0); Hematocrit 46.3 % (41.0-53.0); Hemoglobin 15.9 g/dL (13.5-17.5); Lymphocytes # (auto) 2.8 10 ^3/uL (0.4-5.4); Mean Corpuscular Hemoglobin 30.9 pg (28.0-32.0); Mean Corpuscular Hgb Conc. 34.3 g/dL (32.0-36.0); Monocytes # (auto) 0.4 10 ^3/uL (0-1.3); Monocytes % (auto) 5.4 % (0.0-12.0); Neutrophils # (auto) 4.9 10 ^3/uL (1.6-8.6); Neutrophils % (auto) 58.7 % (37.0-80.0); Nucleated Red Blood Cells % 0.1 %; Platelet Count (auto) 229 10^3/uL (140-450); Red Blood Cells 5.14 10^6/uL (4.5-5.90); White Blood Cell 8.4 10^3/uL (4.4-10.8)
[2023-12-05 21:19] LABS: Alanine Aminotransferase 29 U/L (7-40); Alkaline Phosphatase 84 U/L (46-116); Anion Gap 9 (5-15); Aspartate Aminotransferase 37 U/L (13-40); Bilirubin, Total 0.5 mg/dL (0.2-1.0); Blood Urea Nitrogen 24 mg/dL (9-23); Calcium 10.6 mg/dL (8.7-10.4); Carbon Dioxide 22 mmol/L (20-31); Chloride 109 mmol/L (98-107); Glucose 93 mg/dL (74-106); Magnesium 2.2 mg/dL (1.6-2.6); Potassium 3.8 mmol/L (3.5-5.1); Sodium 140 mmol/L (136-145); Total Protein 8.7 g/dL (5.7-8.2)
[2023-12-05] MEDS: SODIUM CHLORIDE 0.9% 1,000 ML IV ONE (21:33)
[2023-12-05] MEDS: KETOROLAC TROMETH 30 MG/ML 1ML VIAL IM ONE (21:38)
[2023-12-05] MEDS: ONDANSETRON HCL 4 MG/2 ML VIAL IV ONE (21:41)
[2023-12-05 21:42] LABS: Urine Blood Negative /uL (Negative); Urine Clarity Clear (Clear); Urine Color Yellow (Yellow); Urine Mucus FEW (None Seen); Urine Protein, UAD 1+ (Negative); Urine Specific Gravity 1.041 (1.001-1.035); Urine Urobilinogen 2 mg/dL (Negative); Urine WBC 1 /hpf (0 - 3)
[2023-12-05 23:52] VITALS: BP 156/99; PULSE 65; RESP 20; TEMP 98.2; O2SAT 98
[2023-12-05 23:57] LABS: Alanine Aminotransferase 27 U/L (7-40); Albumin 4.7 g/dL (3.2-4.8); Alkaline Phosphatase 78 U/L (46-116); Anion Gap 8 (5-15); Aspartate Aminotransferase 36 U/L (13-40); BUN/Creatinine Ratio 16.4 (10.0-20.0); Blood Urea Nitrogen 21 mg/dL (9-23); Calcium 9.6 mg/dL (8.7-10.4); Carbon Dioxide 21 mmol/L (20-31); Chloride 111 mmol/L (98-107); Glucose 90 mg/dL (74-106); Sodium 140 mmol/L (136-145)
[2023-12-05 23:58] LABS: Bilirubin, Total 0.5 mg/dL (0.2-1.0); Total Protein 7.9 g/dL (5.7-8.2)
[2023-12-06 00:04] LABS: Creatine Kinase IFCC 459 U/L (46-171)
== END 2023-12-06 02:16 | disposition home or self-care (01) ==
LOC: ER 19:09
DX: M62.82 Rhabdomyolysis (principal); E86.0 Dehydration; F41.9 Anxiety disorder, unspecified; F32.A Depression, unspecified; F15.90 Other stimulant use, unspecified, uncomplicated; Z79.899 Other long term (current) drug therapy
CPT/HCPCS: 36415; 71045; 80053; 81001; 82550; 83735; 85025; 96361; 96372; 96374; 99284; J1885; J2405; J7030

== ENCOUNTER 2024-03-27 18:38 | Emergency (ER) | payer MEDICAID ==
[~2024-03-27] VITALS: Ht 167.6 cm; Wt 76.6 kg
--- NOTE | 2024-03-27 20:40 | ED.PDOC ---
Psychiatric HPI Comments 53-YEAR-OLD MALE PRESENTS TO ER WITH COMPLAINTS OF ANXIETY X4 DAYS. PATIENT WITH PAST MEDICAL HISTORY SIGNIFICANT FOR ANXIETY AND DEPRESSION REPORTS THAT HE HAS BEEN EXPERIENCING INCREASED ANXIETY WITH DIFFICULTY SLEEPING X4 DAYS S/P "BREAKING UP WITH HIS GIRLFRIEND". STATES HE DOES TAKE SERTRALINE DAILY AND 0.5 MG OF ATIVAN AT NIGHT. DENIES ANY CURRENT PAIN. PATIENT PRESENTS TO ER AMBULATORY ON ARRIVAL, ALERT AND ORIENTED X4, WITH STEADY GAIT, IN NO DISTRESS. DENIES HEADACHE, SHORTNESS OF BREATH, CHEST PAIN, NAUSEA/VOMITING, NUMBNESS/TINGLING, SI/HI OR ANY FURTHER SYMPTOMS/COMPLAINTS Chief Complaint: Anxiety Time Seen by MD: 18:57 Primary Care Provider: DOROTHY Valerio Notes: Nurses Notes, Medications, Allergies Information Source: Patient Mode of Arrival: Ambulatory Past Medical History PAST MEDICAL HISTORY: Anxiety, Depression Surgical History: Denies all surgeries Family History Family History: Unknown Social History Smoker: Non-Smoker Alcohol: Sober Drugs: Marijuana Lives In: Home Constitutional: denies: chills, diaphoresis, fatigue, fever, malaise, sweats, weakness, others EENTM: denies: blurred vision, double vision, ear bleeding, ear discharge, ear drainage, ear pain, ear ringing, eye pain, eye redness, hearing loss, mouth pain, mouth swelling, nasal discharge, nose bleeding, nose congestion, nose pain, photophobia, tearing, throat pain, throat swelling, voice changes, others Respiratory: denies: cough, hemoptysis, orthopnea, SOB at rest, shortness of breath, SOB with excertion, stridor, wheezing, others Cardiovascular: denies: chest pain, dizzy spells, diaphoresis, Dyspnea on exertion, edema, irregular heart beat, left arm pain, lightheadedness, palpita tions, PND, syncope, others Gastrointestinal: denies: abdomen distended, abdominal pain, blood streaked joy wels, constipated, diarrhea, dysphagia, difficulty swallowing, hematemesis, melena, nausea, poor appetite, poor fluid intake, rectal bleeding, rectal pain, vomiting, others Genitourinary: denies: burning, dysuria, flank pain, frequency, hematuria, incontinence, penile discharge, penile sore, pain, testicle pain, testicle swelling, urgency, others Neurological: denies: dizziness, fainting, headache, left sided numbness, left sided weakness, numbness, paresthesia, pre-existing deficit, right sided numbness, right sided weakness, seizure, speech problems, tingling, tremors, weakness, others Musculoskeletal: denies: back pain, gout, joint pain, joint swelling, muscle pain, muscle stiffness, neck pain, others Integumetry: denies: bruises, change in color, change in hair/nails, dryness, laceration, lesions, lumps, rash, wounds, others Allergic/Immunocompromised: denies: Difficulty Healing, Frequent Infections, Hives, Itching, others Hematologic/Lymphatic: denies: anemia, blood clots, easy bleeding, easy bruisin g, swollen glands, others Endocrine: denies: excessive hunger, excessive sweating, excessive thirst, excessive urination, flushing, intolerance to cold, intolerance to heat, unexplained weight gain, unexplained weight loss, others Psychiatric: reports: others ( STATED IN HPI) Physical Exam General Appearance: No Apparent Distress HEENT: Normal ENT Inspection, PERRL/EOMI, Pharynx Normal, TMs Normal Neck: Full Range of Motion, Non-Tender, Normal Respiratory: Chest Non-Tender, Lungs Clear, No Accessory Muscle Use, No Respiratory Distress, Normal Breath Sounds Cardiovascular: No Murmur, No Gallop, Regular Rate/Rhythm Breast Exam: Deferred Gastrointestinal: NOT DONE Genitalia: Deferred Pelvic: Deferred Rectal: Deferred Extremities: Normal capillary refill, Normal range of motion Neurologic: Alert, plating department helper II-XII nml as Tested, No Motor Deficits, Normal Mood, No Sensory Deficits Cerebellar Function: Normal Reflexes: Normal Skin: Dry, Normal Color, Warm Peripheral Pulses: 2+ Radial (R), 2+ Radial (L), 2+ Brachial (R), 2+ Brachial (L) Lymphatic: No Adenopathy Was a procedure done? Was a procedure done?: No Sedation Sedation?: No Psych Differential Dx Intoxication Differential Dx: Hallucinations, Seizures, CVA X-Ray, Labs, Meds, VS Vital Signs Date Time Temp Pulse Resp B/P (MAP) Pulse Ox O2 Delivery O2 Flow Rate FiO2 03/27/24 19:00 98.6 104 20 153/97 (115) 100 ATIVAN 1 MG IM ORDERED ADVISED TO DRINK PLENTY OF FLUIDS PATIENT HAD IMPROVEMENT IN SYMPTOMS AND IN NO DISTRESS PRIOR TO DISCHARGE ADVISED TO FOLLOW UP WITH PCP AND PSYCHIATRIST IN 1-2 DAYS PATIENT VERBALIZED UNDERSTANDING AND AGREEABLE WITH CURRENT PLAN OF CARE ADVISED TO RETURN TO ER IMMEDIATELY IF SYMPTOMS WORSEN Time of 1ST Reevaluation: 20:12 Reevaluation 1ST: N/A Time of 2ND Reevaluation: 20:44 Patient Education/Counseling: Diagnosis, Treatment, Prognosis, Need For Follow Up Family Education/Counseling: No Family Present Departure 1 Departure Time of Disposition: 20:48 Impression: Primary Impression: Anxiety Disposition: 01 HOME / SELF CARE / HOMELESS Condition: Stable Discharged With: Relative (Mother) Critical Care Note Critical Care Time?: No Stability Stability form required: No Heart Score Heart Score: Heart Score Response (Comments) Value History N/A 0 EKG N/A 0 Age N/A 0 Risk Factors N/A 0 Troponin N/A 0 Total 0 GUMARO PURI Mar 27, 2024 20:40
[2024-03-27 20:55] VITALS: BP 153/97; PULSE 104; RESP 20; TEMP 98.6; O2SAT 100
[2024-03-27] MEDS: LORazepam 2MG/ML-1ML VIAL IM ONE (20:58)
== END 2024-03-27 21:08 | disposition home or self-care (01) ==
LOC: ER 18:38
DX: F41.9 Anxiety disorder, unspecified (principal); F32.A Depression, unspecified
CPT/HCPCS: 96372; 99283; J2060

== ENCOUNTER 2024-05-02 12:24 | Inpatient (IN) | payer MEDICAID ==
[~2024-05-02] VITALS: Ht 167.6 cm; Wt 76.5 kg
[2024-05-02 13:17] LABS: Urine Bacteria None Seen /hpf (None Seen)
--- NOTE | 2024-05-02 13:39 | ED.PDOC ---
GI ASSESSMENT HPI Comments A 53 YEAR OLD MALE PRESENTS TO THE ED WITH CHIEF COMPLAINT OF RECTAL BLEEDING. PATIENT REPORTS THAT HE HAS BEEN EXPERIENCING RECTAL BLEEDING SINCE MONDAY AFTER HAVING A HARD BOWEL MOVEMENT ALONG WITH ANOTHER EPISODE OF BLEEDING OCCURRING TODAY AFTER STRAINING. PATIENT RELAYS THAT HE HAS HISTORY OF STOMACH ULCERS IN THE PAST. ALSO, PT C/O NAUSEA AND ANXIOUS. PATIENT DENIES SOB, CHEST PAIN, VOMITING, ABDOMINAL PAIN, FEVER, OR CHILLS. NO OTHER SYMPTOMS REPORTED AT THIS TIME OF CARE. Chief Complaint: Urinary Time Seen by MD: 13:35 Primary Care Provider: DOROTHY Reviewed Notes: Nurses Notes, Medications, Allergies Allergies: Coded Allergies: No Known Drug Allergy (Verified Allergy, Unknown, 05/12/18) Home Meds Active Scripts Escitalopram Oxalate (Lexapro) 20 Mg Tab, 1 TAB PO DAILY, #30 TAB Prov:GERTRUDE MERAZ DO 05/03/23 Escitalopram Oxalate (Lexapro) 10 Mg Tab, 1 TAB PO DAILY, #30 TAB Prov:CAIN MOELLER MD 08/13/22 Pantoprazole Sodium Sesquihydr (Pantoprazole Sodium) 40 Mg Tab, 40 MG PO BID, #60 TAB Prov:CAIN MOELLER MD 08/13/22 Gabapentin (Gabapentin) 300 Mg Cap, 300 MG PO TID, #30 CAP Prov:CAIN MOELLER MD 08/13/22 Chlordiazepoxide Hcl (Librium) 25 Mg Cp, 25 MG PO Q6HPRN PRN, #20 CAP Prov:CAIN MOELLER MD 08/13/22 Ondansetron (Zofran) 4 Mg Tab, 1 TAB PO Q6HR, #20 TAB Prov:LUKE LEWIS MD 01/10/22 Chlordiazepoxide Hcl (Ni-1) (I (Librium) 10 Mg Cap, 10 MG PO BID for 7 Days, #14 CAP Prov:LUKE LEWIS MD 01/10/22 Sulfamethoxazole-Trimethoprim (Bactrim) 1 Tab Tab, 1 TAB PO BID for 10 Days, #20 TAB Prov:MAYELA GUILLEN 03/25/21 Naproxen (Naproxen) 500 Mg Tab, 500 MG PO BID for 15 Days, #30 TAB Prov:MAYELA GUILLEN 03/10/21 Levofloxacin (Levaquin 750 mg) 750 Mg Tab, 1 TAB PO DAILY, #5 TAB Prov:ELIZABETH BURTON MD 08/09/18 Information Source: Patient Mode of Arrival: Ambulatory Timing: Days Duration: Since onset Prehospital treatment: None Vomitus: None Stool: Impaction, Blood Streaked, Guaiac Positive Severity: Moderate Recent: None Recent Hx of: None Pain Location: None Modifying Factors: Nothing Associated sign and symptoms: Constipation, Blood in Stool Past Medical History PAST MEDICAL HISTORY: Anxiety, Depression, PUD Past Medical History (Other): ULCERS Surgical History: Denies all surgeries Family History Family History: Unknown Social History Smoker: Non-Smoker Alcohol: Sober Drugs: Marijuana Lives In: Home Constitutional: denies: chills, diaphoresis, fatigue, fever, malaise, sweats, weakness, others EENTM: denies: blurred vision, double vision, ear bleeding, ear discharge, ear drainage, ear pain, ear ringing, eye pain, eye redness, hearing loss, mouth pain, mouth swelling, nasal discharge, nose bleeding, nose congestion, nose pain, photophobia, tearing, throat pain, throat swelling, voice changes, others Respiratory: denies: cough, hemoptysis, orthopnea, SOB at rest, shortness of breath, SOB with excertion, stridor, wheezing, others Cardiovascular: denies: chest pain, dizzy spells, diaphoresis, Dyspnea on exertion, edema, irregular heart beat, left arm pain, lightheadedness, palpitations, PND, syncope, others Gastrointestinal: reports: blood streaked bowels, constipated (MILD ), nausea, rectal bleeding; denies: abdomen distended, abdominal pain, diarrhea, dysphagia, difficulty swallowing, hematemesis, melena, poor appetite, poor fluid intake, rectal pain, vomiting, others Genitourinary: denies: burning, dysuria, flank pain, frequency, hematuria, incontinence, penile discharge, penile sore, pain, testicle pain, testicle swelling, urgency, others Neurological: denies: dizziness, fainting, headache, left sided numbness, left sided weakness, numbness, paresthesia, pre-existing deficit, right sided numbness, right sided weakness, seizure, speech problems, tingling, tremors, weakness, others Musculoskeletal: denies: back pain, gout, joint pain, joint swelling, muscle pain, muscle stiffness, neck pain, others Integumetry: denies: bruises, change in color, change in hair/nails, dryness, laceration, lesions, lumps, rash, wounds, others Hematologic/Lymphatic: denies: anemia, blood clots, easy bleeding, easy bruising, swollen glands, others Endocrine: denies: excessive hunger, excessive sweating, excessive thirst, excessive urination, flushing, intolerance to cold, intolerance to heat, unexplained weight gain, unexplained weight loss, others Psychiatric: denies: anxiety, bipolar disorder, depression, hopeless, panic disorder, schizophrenia, sleepless, suicidal, others All Other Systems: Reviewed and Negative Physical Exam General Appearance: Mild Distress, Normal, Other (ANXIOUS ) HEENT: Normal ENT Inspection, PERRL/EOMI Neck: Full Range of Motion, Non-Tender, Normal, Normal Inspection Respiratory: Chest Non-Tender, Lungs Clear, No Accessory Muscle Use, No Respiratory Distress, Normal Breath Sounds Cardiovascular: No Edema, No JVD, No Murmur, No Gallop, Normal Peripheral Pulses, Regular Rate/Rhythm Breast Exam: Deferred Gastrointestinal: No Organomegaly, Non Tender, No Pulsatile Mass, Normal Bowel Sounds, Soft Genitalia: Deferred Pelvic: Deferred Rectal: Blood streaked stool, Heme positive stool, Normal rectal tone, Tenderness (AND MILD RED BLOOD IN THE STOOL, NO FECAL IMPACTION, NO ACTIVELY RECTAL BLEEDING AND BLOOD CLOTS. ) Extremities: No calf tenderness, Normal capillary refill, Normal inspection, Normal range of motion, Non-tender, No pedal edema Musculoskeletal : Apperance: Normal Neurologic: Alert, merchandising director II-XII nml as Tested, No Motor Deficits, Normal Affect, Normal Mood, No Sensory Deficits Cerebellar Function: Normal Reflexes: Normal Skin: Dry, Normal Color, Warm Peripheral Pulses: 2+ carotid (R), 2+ carotid (L) Lymphatic: No Adenopathy Was a procedure done? Was a procedure done?: No GI differential Dx Differential Diagnosis: Diverticular disease, Gastritis/PUD, Gastroenteritis, GI hemorrhage, Hepatitis, Inflammatory BD, Ischemic Bowel X-Ray, Labs, Meds, VS Vital Signs Date Time Temp Pulse Resp B/P (MAP) Pulse Ox O2 Delivery O2 Flow Rate FiO2 3/6/25 15:27 97.5 70 18 148/94 (112) 98 97.5 05/02/24 13:35 68 18 98 Room Air 05/02/24 13:35 98.3 68 18 149/102 (118) 98 98.3 05/02/24 12:54 98.3 68 18 149/102 (118) 98 Lab Test 05/02/24 13:56 05/02/24 13:38 05/02/24 13:00 Range/Units White Blood Count 4.8 4.4-10.8 10^3/uL Red Blood Count 4.79 4.5-5.90 10^6/uL Hemoglobin 14.8 13.5-17.5 g/dL Hematocrit 42.9 41.0-53.0 % Mean Corpuscular Volume 89.5 80.0-100.0 fL Mean Corpuscular Hemoglobin 30.8 28.0-32.0 pg Mean Corpuscular Hemoglobin Concent 34.4 32.0-36.0 g/dL Red Cell Distribution Width 13.2 11.8-14.3 % Platelet Count 199 140-450 10^3/uL Mean Platelet Volume 7.3 6.9-10.8 fL Neutrophils (%) (Auto) 47.4 37.0-80.0 % Lymphocytes (%) (Auto) 45.1 10.0-50.0 % Monocytes (%) (Auto) 5.7 0.0-12.0 % Eosinophils (%) (Auto) 1.0 0.0-7.0 % Basophils (%) (Auto) 0.8 0.0-2.0 % Neutrophils # (Auto) 2.3 1.6-8.6 10 ^3/uL Lymphocytes # (Auto) 2.2 0.4-5.4 10 ^3/uL Monocytes # (Auto) 0.3 0-1.3 10 ^3/uL Eosinophils # (Auto) 0 0-0.8 10 ^3/uL Basophils # (Auto) 0 0-0.2 10 ^3/uL Nucleated Red Blood Cells 0.2 % Prothrombin Time 10.3 9.3-11.8 sec Prothrombin Time INR 0.97 0.9-1.15 Sodium Level 141 136-145 mmol/L Potassium Level 4.1 3.5-5.1 mmol/L Chloride Level 112 H 98-107 mmol/L Carbon Dioxide Level 22 20-31 mmol/L Anion Gap 7 5-15 Blood Urea Nitrogen 20 9-23 mg/dL Creatinine 1.13 0.700-1.30 mg/dL Glomerular Filtration Rate Calc 77 >90 mL/min BUN/Creatinine Ratio 17.7 10.0-20.0 Serum Glucose 115 H 74-106 mg/dL Calcium Level 9.9 8.7-10.4 mg/dL Total Bilirubin 0.4 0.2-1.0 mg/dL Aspartate Amino Transferase (AST) 37 13-40 U/L Alanine Aminotransferase (ALT) 32 7-40 U/L Alkaline Phosphatase 87 46-116 U/L Total Protein 7.7 5.7-8.2 g/dL Albumin 4.8 3.2-4.8 g/dL Plasma/Serum Blood Alcohol < 3.0 <10 mg/dL Stool Occult Blood Positive Negative Stool Occult Blood Sample #3 Negative Urine Color Light-yellow Yellow Urine Clarity Clear Clear Urine pH 5.5 5.0-9.0 Urine Specific Acra 1.015 1.001-1.035 Urine Protein Negative Negative Urine Ketones Negative Negative Urine Blood Negative Negative /uL Urine Nitrite Negative Negative Urine Bilirubin Negative Negative Urine Urobilinogen Normal Negative mg/dL Urine Leukocyte Esterase Negative Negative /uL Urine RBC None seen 0 - 3 /hpf Urine Microscopic WBC 0-3 /HPF Urine Squamous Epithelial Cells None seen <5 /hpf Urine Bacteria None seen None Seen /hpf Urine Glucose Normal Normal mg/dL Current Medications Medications (Trade) Dose Ordered Sig/Keira Route Start Time Stop Time Status Last Admin Sodium Chloride 1,000 ml @ 1,000 mls/hr Q1H ONCE IV 05/02/24 13:45 05/02/24 14:44 DC 05/02/24 14:27 CT ABD/PEL: FINDINGS: Lung bases: Lung bases are clear. Liver: There are a few tiny subcentimeter low-attenuation lesions in the liver, likely small cysts, too small to characterize. Biliary: No calcified gallstones or biliary ductal dilatation. Spleen: Unremarkable. Pancreas: Grossly unremarkable in its noncontrast enhanced appearance. Adrenal glands: Unremarkable. No mass. Kidneys: No hydronephrosis. No renal or ureteral calculi. Aorta/Vascular: No aneurysm or significant calcification. Retroperitoneum: No mass or lymphadenopathy. Bowel/mesentery: No small bowel obstruction. No free air or free fluid. Appendix is visualized and appears unremarkable. Sigmoid diverticulosis and scattered diverticula throughout the colon without adjacent inflammatory changes to suggest diverticulitis. Moderate stool in the colon. Pelvic organs: Grossly unremarkable. Bladder: Unremarkable. No mass. Abdominal wall: No mass or hernia. Bones: No acute fracture or suspicious intraosseous lesion. IMPRESSION: 1. Colonic diverticulosis with no CT evidence for diverticulitis. 2. Moderate stool in the colon. 3. Additional nonacute findings as detailed above X-Ray, Labs, Meds, VS Comment EXTERNAL MEDICAL RECORDS REVIEWED: [NONE] INDEPENDENT HISTORIANS: [NONE] SOCIAL DETERMINANTS OF HEALTH: [NONE] LABS ORDERED: OCCULT STOOL, CBC, CMP, UA, PT INR, BLOOD ETOH REVIEWED AND INTERPRETED RESULTS: CT ABD/PEL IMAGING ORDERED: CT ABD/PEL TREATMENTS ORDERED: PROTONIX 40MG IV, NS 1L IV, ZOFRAN 4MG IVP PROCEDURES PERFORMED: NONE CRITICAL CARE TIME: NONE I HAVE DISCUSSED THE PATIENT WITH THE ATTENDING PHYSICIAN DR. TELLO AND HE AGREES WITH THE PATIENT'S PLAN OF CARE AND DISPOSITION. BASED ON HISTORY OF PRESENT ILLNESS, AND PHYSICAL EXAM, PATIENT WILL ADMITTED FOR FURTHER EVALUATION OF LOWER GI BLEEDING. Time of 1ST Reevaluation: 13:55 Reevaluation 1ST: Unchanged Time of 2ND Reevaluation: 14:51 Reevaluation 2ND: Unchanged Patient Education/Counseling: Diagnosis, Treatment Family Education/Counseling: No Family Present Departure 1 Departure Time of Disposition: 14:51 Impression: Primary Impression: Acute lower GI bleeding Disposition: ADMITTED INPATIENT Admit to: Med Surg Condition: Serious Critical Care Note Critical Care Time?: No Stability Stability form required: Yes Unstable for transfer: Requires medication, ED Physician Assesment, Possible rapid decline Heart Score Heart Score: Heart Score Response (Comments) Value History N/A 0 EKG N/A 0 Age N/A 0 Risk Factors N/A 0 Troponin N/A 0 Total 0 I personally scribed for MAYELA GUILLEN ([email or web address]) on 05/02/24 at 13:39. Electronically submitted by Gene Gonzales ([email or web address]). I personally scribed for MAYELA GUILLEN ([email or web address]) on 05/02/24 at 13:56. Electronically submitted by Gene Gonzales ([email or web address]). I personally scribed for MAYELA GUILLEN ([email or web address]) on 05/02/24 at 14:25. Electronically submitted by Gene Gonzales ([email or web address]). I personally scribed for MAYELA GUILLEN ([email or web address]) on 05/02/24 at 14:52. Electronically submitted by Gene Gonzales ([email or web address]). MAYELA GUILLEN May 02, 2024 13:39
[2024-05-02 13:47] LABS: Urine Blood Negative /uL (Negative); Urine Clarity Clear (Clear); Urine Protein, UAD Negative (Negative); Urine Specific Gravity 1.015 (1.001-1.035); Urine Squamous Epithelial Cell None Seen /hpf (<5); Urine Urobilinogen Normal (Negative); Urine pH 5.5 (5.0-9.0)
[2024-05-02 13:48] LABS: Urine Color Light-Yellow (Yellow)
[2024-05-02 14:13] LABS: Basophils # (auto) 0 10 ^3/uL (0-0.2); Basophils % (auto) 0.8 % (0.0-2.0); Eosinophils # (auto) 0 10 ^3/uL (0-0.8); Hematocrit 42.9 % (41.0-53.0); Hemoglobin 14.8 g/dL (13.5-17.5); Lymphocytes # (auto) 2.2 10 ^3/uL (0.4-5.4); Lymphocytes % (auto) 45.1 % (10.0-50.0); Mean Corpuscular Hemoglobin 30.8 pg (28.0-32.0); Mean Corpuscular Hgb Conc. 34.4 g/dL (32.0-36.0); Mean Corpuscular Volume 89.5 fL (80.0-100.0); Monocytes # (auto) 0.3 10 ^3/uL (0-1.3); Monocytes % (auto) 5.7 % (0.0-12.0); Neutrophils # (auto) 2.3 10 ^3/uL (1.6-8.6); Neutrophils % (auto) 47.4 % (37.0-80.0); Nucleated Red Blood Cells % 0.2 %; Platelet Count (auto) 199 10^3/uL (140-450); Red Blood Cells 4.79 10^6/uL (4.5-5.90); Red Cell Distribution Width 13.2 % (11.8-14.3); White Blood Cell 4.8 10^3/uL (4.4-10.8)
--- NOTE | 2024-05-02 14:15 | DVH ---
CLINICAL INFORMATION: 53 years old, Male; BLOOD IN THE STOOL. TECHNIQUE: Axial CT images of the abdomen and pelvis were obtained without IV contrast. Coronal and s agittal reformatted images were obtained, reviewed, and stored. Evaluation of the parenchymal organs is limited without IV contrast. Evaluation of the bowel and mesentery is limited without oral contras t. All CT scans at this medical facility are performed using dose modulation techniques as appropriat e to a performed exam including the following: Automated exposure control was utilized; adjustment of the MA and/or KV according to patient size; and use of iterative reconstruction technique. CTDIvol = 7.8 mGy DLP = 442.27 mGy-cm COMPARISON: CT CT AB PEL WO CON-NO ORAL OR IV on DOS: 08/12/22 FINDINGS: Lung bases: Lung bases are clear. Liver: There are a few tiny subcentimeter low-attenuation lesions in the liver, likely small cysts, t oo small to characterize. Biliary: No calcified gallstones or biliary ductal dilatation. Spleen: Unremarkable. Pancreas: Grossly unremarkable in its noncontrast enhanced appearance. Adrenal glands: Unremarkable. No mass. Kidneys: No hydronephrosis. No renal or ureteral calculi. Aorta/Vascular: No aneurysm or significant calcification. Retroperitoneum: No mass or lymphadenopathy. Bowel/mesentery: No small bowel obstruction. No free air or free fluid. Appendix is visualized and ap pears unremarkable. Sigmoid diverticulosis and scattered diverticula throughout the colon without ad jacent inflammatory changes to suggest diverticulitis. Moderate stool in the colon. Pelvic organs: Grossly unremarkable. Bladder: Unremarkable. No mass. Abdominal wall: No mass or hernia. Bones: No acute fracture or suspicious intraosseous lesion. IMPRESSION: 1. Colonic diverticulosis with no CT evidence for diverticulitis. 2. Moderate stool in the colon. 3. Additional nonacute findings as detailed above
[2024-05-02] MEDS: SODIUM CHLORIDE 0.9% 1,000 ML IV ONE (14:27)
[2024-05-02 14:30] LABS: Alanine Aminotransferase 32 U/L (7-40); Albumin 4.8 g/dL (3.2-4.8); Alkaline Phosphatase 87 U/L (46-116); Anion Gap 7 (5-15); Aspartate Aminotransferase 37 U/L (13-40); BUN/Creatinine Ratio 17.7 (10.0-20.0); Bilirubin, Total 0.4 mg/dL (0.2-1.0); Blood Urea Nitrogen 20 mg/dL (9-23); Calcium 9.9 mg/dL (8.7-10.4); Carbon Dioxide 22 mmol/L (20-31); Potassium 4.1 mmol/L (3.5-5.1); Sodium 141 mmol/L (136-145); Total Protein 7.7 g/dL (5.7-8.2)
[2024-05-02 14:31] LABS: INR 0.97 (0.9-1.15); Prothrombin Time 10.3 sec (9.3-11.8)
[2024-05-02] MEDS: PANTOPRAZOLE 40 MG/10 ML VIAL INJ IV ONE (14:33)
[2024-05-02 14:44] LABS: Chloride 112 mmol/L (98-107)
[2024-05-02 14:45] LABS: Glucose 115 mg/dL (74-106)
[2024-05-02] MEDS: ONDANSETRON HCL 4 MG/2 ML VIAL IV ONE (15:16)
[2024-05-02] MEDS: LORazepam 0.5 MG TAB PO ONE (17:13)
[2024-05-02] MEDS ORDERED: DOCUSATE SOD 100 MG CAP PO PRN (23:00)
[2024-05-02] MEDS ORDERED: ACETAMINOPHEN 325 MG TAB PO PRN (23:00)
--- NOTE | 2024-05-02 23:34 | DVHHP2 ---
History of Present Illness Reason for Visit: Acute lower GI bleeding History of Present Illness The patient is a 53-year-old male with past medical history of anxiety, depression, PUD, and ulcers who presented to [facility] with complaint rectal bleeding. Patient reports that he has been experiencing rectal bleed for the past 4 days having hard bowel movement along with episode of bleeding occurring today after straining. Patient was seen and evaluated in the ED, laboratory data shows WBC 4.8, hemoglobin 14.8, hematocrit 42.9, platelets 199, sodium 141, potassium 4.1, BUN 20, creatinine 1.13, GFR 77, glucose 115. Abdomen/pelvis CT revealing colonic diverticulosis with no CT evidence of di verticulitis, moderate stool in the colon. Please see medication orders section in the computer. On my assessment, patient denied chest pain, no headache, dizziness, no abdominal pain, no diarrhea, no nausea, no vomiting, no fever, no chills. Patient was admitted for further evaluation and medical management Past Medical History Anxiety, Depression, PUD, Stomach ulcer Past Surgical History Denies all surgeries Family History Reviewed, noncontributory to the management of this case. Past Social History The patient lives at home, denies smoking, alcohol or illicit drugs abuse. Review of Systems Constitutional: Yes: Weakness; No: Fever, Chills, Sweats, Malaise, Other Eyes: No: Pain, Vision change, Conjunctivae inflammation, Eyelid inflammation, Other, Redness ENT: No: Ear pain, Ear discharge, Nose pain, Nose discharge, Nose congestion, Mouth pain, Mouth swelling, Throat pain, Throat swelling, Other Respiratory: No: Cough, Dry, Shortness of breath, SOB with excertion, Wheezing, Hemoptysis, Pleuritic Pain, Sputum, Wheezing, Other Cardiovascular: No: Chest Pain, Palpitations, Orthopnea, Paroxysmal Noc. Dyspnea, Edema, Lt Headedness, Other Gastrointestinal: Constipation, Other (blood streaked bowels, constipated (MILD ), nausea, rectal bleeding); No: Nausea, Vomiting, Abdominal Pain, Diarrhea, Melena, Hematochezia Genitourinary: No Dysuria, No Frequency, No Incontinence, No Hematuria, No Retention, No Other Musculoskeletal: No: other, neck pain, shoulder pain, arm pain, back pain, hand pain, leg pain, foot pain Skin: No: Rash, Lesions, Jaundice, Bruising, Other Neurological: No: Weakness, Numbness, Incoordination, Change in speech, Confusion, Seizures, Other Allergies: Coded Allergies: No Known Drug Allergy (Verified Allergy, Unknown, 05/12/18) Medications Current Medications Medications Dose Ordered Sig/Keira Route Start Time Stop Time Status Last Admin Dose Admin Lorazepam 1 mg Q8HP PRN IV 05/02/24 23:00 Pantoprazole Sodium 40 mg BID IV 05/03/24 10:00 Sodium Chloride 10 ml Q8HR IV 05/03/24 06:00 Acetaminophen/ Hydrocodone Bitart 1 tab Q4HP PRN PO 05/02/24 23:00 Ondansetron HCl 4 mg Q4HP PRN IV 05/02/24 23:00 Docusate Sodium 100 mg BIDPRN PRN PO 05/02/24 23:00 Acetaminophen 650 mg Q6HP PRN PO 05/02/24 23:00 Nitroglycerin 0.4 mg Q5MINP PRN SL 05/02/24 23:45 UNV Morphine Sulfate 2 mg Q30M PRN IV 05/02/24 23:45 UNV Exam Vital Signs Vital Signs Date Time Temp Pulse Resp B/P (MAP) Pulse Ox O2 Delivery O2 Flow Rate FiO2 05/02/24 22:22 98.4 68 18 144/86 (105) 98 98.4 05/02/24 13:35 Room Air General Appearance: Alert, Oriented X3, Cooperative, No acute distress HEENT: Atraumatic, PERRLA, EOMI, Mucous membr. moist/pink Respiratory: Clear to auscultation, Normal air movement Cardiovascular: Regular rate, Normal S1, Normal S2, No murmurs Abdominal: Normal bowel sounds, Soft, No tenderness, No hepatospenomegaly, No masses Extremities: No clubbing, No cyanosis, No edema, Normal pulses, No tenderness/swelling Skin: No rashes, No breakdown, No significant lesion Neuro: Normal gait, Normal speech, Strength at 5/5 X4 ext, Normal tone, Sensation intact, Cranial nerves 3-12 NL, Reflexes 2+, Other (Generalized weakness) Psych/Mental Status: Mental status NL, Mood NL Labs/Xrays Labs Test 05/02/24 13:56 05/02/24 13:38 05/02/24 13:00 Range/Units White Blood Count 4.8 4.4-10.8 10^3/uL Red Blood Count 4.79 4.5-5.90 10^6/uL Hemoglobin 14.8 13.5-17.5 g/dL Hematocrit 42.9 41.0-53.0 % Mean Corpuscular Volume 89.5 80.0-100.0 fL Mean Corpuscular Hemoglobin 30.8 28.0-32.0 pg Mean Corpuscular Hemoglobin Concent 34.4 32.0-36.0 g/dL Red Cell Distribution Width 13.2 11.8-14.3 % Platelet Count 199 140-450 10^3/uL Mean Platelet Volume 7.3 6.9-10.8 fL Neutrophils (%) (Auto) 47.4 37.0-80.0 % Lymphocytes (%) (Auto) 45.1 10.0-50.0 % Monocytes (%) (Auto) 5.7 0.0-12.0 % Eosinophils (%) (Auto) 1.0 0.0-7.0 % Basophils (%) (Auto) 0.8 0.0-2.0 % Neutrophils # (Auto) 2.3 1.6-8.6 10 ^3/uL Lymphocytes # (Auto) 2.2 0.4-5.4 10 ^3/uL Monocytes # (Auto) 0.3 0-1.3 10 ^3/uL Eosinophils # (Auto) 0 0-0.8 10 ^3/uL Basophils # (Auto) 0 0-0.2 10 ^3/uL Nucleated Red Blood Cells 0.2 % Prothrombin Time 10.3 9.3-11.8 sec Prothrombin Time INR 0.97 0.9-1.15 Sodium Level 141 136-145 mmol/L Potassium Level 4.1 3.5-5.1 mmol/L Chloride Level 112 H 98-107 mmol/L Carbon Dioxide Level 22 20-31 mmol/L Anion Gap 7 5-15 Blood Urea Nitrogen 20 9-23 mg/dL Creatinine 1.13 0.700-1.30 mg/dL Glomerular Filtration Rate Calc 77 >90 mL/min BUN/Creatinine Ratio 17.7 10.0-20.0 Serum Glucose 115 H 74-106 mg/dL Calcium Level 9.9 8.7-10.4 mg/dL Total Bilirubin 0.4 0.2-1.0 mg/dL Aspartate Amino Transferase (AST) 37 13-40 U/L Alanine Aminotransferase (ALT) 32 7-40 U/L Alkaline Phosphatase 87 46-116 U/L Total Protein 7.7 5.7-8.2 g/dL Albumin 4.8 3.2-4.8 g/dL Plasma/Serum Blood Alcohol < 3.0 <10 mg/dL Stool Occult Blood Positive Negative Stool Occult Blood Sample #3 Negative Urine Color Light-yellow Yellow Urine Clarity Clear Clear Urine pH 5.5 5.0-9.0 Urine Specific [place] 1.015 1.001-1.035 Urine Protein Negative Negative Urine Ketones Negative Negative Urine Blood Negative Negative /uL Urine Nitrite Negative Negative Urine Bilirubin Negative Negative Urine Urobilinogen Normal Negative mg/dL Urine Leukocyte Esterase Negative Negative /uL Urine RBC None seen 0 - 3 /hpf Urine Microscopic WBC 0-3 /HPF Urine Squamous Epithelial Cells None seen <5 /hpf Urine Bacteria None seen None Seen /hpf Urine Glucose Normal Normal mg/dL PATIENT: ANUPAMA EVANS ACCT: [id number] UNIT: [id number] : 1970 LOC: ER ROOM / BED: / AGE / SEX: 53 / M ADM STATUS: REG ER SERVICE [id number] ORDERING PHYSICIAN: MAYELA GUILLEN PROCEDURE(s): ABPL - CT AB PEL WO CON-NO ORAL OR IV REASON: BLOOD IN THE STOOL ORDER NUMBER(s): [id number], ACCESSION NUMBER(s): [id number] CLINICAL INFORMATION: 53 years old, Male; BLOOD IN THE STOOL. TECHNIQUE: Axial CT images of the abdomen and pelvis were obtained without IV contrast. Coronal and sagittal reformatted images were obtained, reviewed, and stored. Evaluation of the parenchymal organs is limited without IV contrast. Evaluation of the bowel and mesentery is limited without oral contrast. All CT scans at this medical facility are performed using dose modulation techniques as appropriate to a performed exam including the following: Automated exposure control was utilized; adjustment of the MA and/or KV according to patient size; and use of iterative reconstruction technique. CTDIvol = 7.8 mGy DLP = 442.27 mGy-cm COMPARISON: CT CT AB PEL WO CON-NO ORAL OR IV on DOS: 08/12/22 FINDINGS: Lung bases: Lung bases are clear. Liver: There are a few tiny subcentimeter low-attenuation lesions in the liver, likely small cysts, too small to characterize. Biliary: No calcified gallstones or biliary ductal dilatation. Spleen: Unremarkable. Pancreas: Grossly unremarkable in its noncontrast enhanced appearance. Adrenal glands: Unremarkable. No mass. Kidneys: No hydronephrosis. No renal or ureteral calculi. Aorta/Vascular: No aneurysm or significant calcification. Retroperitoneum: No mass or lymphadenopathy. Bowel/mesentery: No small bowel obstruction. No free air or free fluid. Appendix is visualized and appears unremarkable. Sigmoid diverticulosis and scattered diverticula throughout the colon without adjacent inflammatory changes to s uggest diverticulitis. Moderate stool in the colon. Pelvic organs: Grossly unremarkable. Bladder: Unremarkable. No mass. Abdominal wall: No mass or hernia. Bones: No acute fracture or suspicious intraosseous lesion. IMPRESSION: 1. Colonic diverticulosis with no CT evidence for diverticulitis. 2. Moderate stool in the colon. 3. Additional nonacute findings as detailed above Assessment/Plan Assessment/Plan Acute lower GI bleeding Generalized weakness Plan 1. Admit to telemetry unit 2. Breathing treatment 3. Pain control management 4. Management of fluids and electrolytes 5. Consultation for GI/hospitalist 6. Diagnostic tests abdomen/pelvis CT 7. DVT prophylaxis-on SCDs 8. Repeat labs CBC, CMP in a.m. 9. Continue with current medical management 10. Treatment plan discussed with patient and RN. Patient verbalized understanding. Plan discussed with: Patient, Other (RN) My Orders Orders - CHAD MAK DNP Procedure Category Date Status Time Lorazepam 2mg/Ml Inj PHA 05/02/24 In Process (Ativan Inj) 23:00 Pantoprazole PHA 05/03/24 In Process (Protonix) 10:00 Allergies EMILY 05/02/24 In Process 22:54 Code Status CODE 05/02/24 Transmitted 22:54 Sodium Chloride Lock PHA 05/03/24 In Process (Saline Lock Ns) 06:00 Oxygen Per Hour RT 05/02/24 Transmitted 22:54 Hydrocodone-Acet PHA 05/02/24 In Process 5/325mg Tab ([place] 23:00 Ondansetron Hcl PHA 05/02/24 In Process (Zofran) 23:00 Docusate Sodium PHA 05/02/24 In Process Capsule (Colace 23:00 Complete Blood Count LAB 05/03/24 Verified 04:00 Comprehensive LAB 05/03/24 Verified Metabolic Panel 04:00 Condition: Serious EMILY 05/02/24 In Process 22:54 Acetaminophen Tablet PHA 05/02/24 In Process (Tylenol Tablet) 23:00 Clear Liq Diet DIET 05/03/24 Transmitted Breakfast Bedrest With Bathroom EMILY 05/02/24 In Process Privileg 22:54 Sequential EMILY 05/02/24 In Process Compression Device Admit ADMIT 05/02/24 Transmitted 23:32 Nitroglycerin [facility] 05/02/24 Logged Sublingual (Ntrostat 23:45 Morphine Sulfate PHA 05/02/24 Logged Injection 23:45 Notify Of Changes [facility] 05/02/24 Transmitted From Base 23:32 Otr Flatbed Driver For [facility] 05/02/24 Transmitted 24 Hours 23:32 Emergency Dysrhythmia [facility] 05/02/24 Transmitted Protocol 23:32 Oxygen By Nasal RT 05/02/24 Transmitted Cannula 23:32 Problem List: (1) Acute lower GI bleeding (2) Generalized weakness Date of Service: May 02, 2024 Billing Provider: CHAD MAK DNP Common Visit Codes: [id number] INP/OBS CARE (HIGH) CHAD MAK DNP May 02, 2024 23:34
[2024-05-02] MEDS ORDERED: MORPHINE SULFATE INJ 2 MG/ml SYRG IV PRN (23:45)
[2024-05-02] MEDS ORDERED: NITROGLYCERIN 0.4 MG SL TAB SL PRN (23:45)
[2024-05-03] MEDS: HYDROcodone-ACET 5/325MG TAB PO PRN (00:37)
[2024-05-03] MEDS: ONDANSETRON HCL 4 MG/2 ML VIAL IV PRN (00:37)
[2024-05-03] MEDS: LORazepam 2MG/ML-1ML VIAL IV PRN (00:38)
[2024-05-03 00:46] VITALS: BP 144/88; PULSE 60; RESP 14; TEMP 98.3
[2024-05-03] MEDS ORDERED: TRAZ-228 PO (03:24)
[2024-05-03] MEDS ORDERED: QUET200T4 PO (03:25)
[2024-05-03] MEDS ORDERED: LORA-1121 PO (03:25)
[2024-05-03 05:00] VITALS: BP 133/89; PULSE 51; RESP 18; TEMP 97.6; O2SAT 96
[2024-05-03] MEDS: SODIUM CHLOR 0.9% PF (SALINE LOCK) 10ML VIAL/SYR IV SCH (06:00)
[2024-05-03 07:06] LABS: Alanine Aminotransferase 28 U/L (7-40); Alkaline Phosphatase 63 U/L (46-116); Anion Gap 7 (5-15); BUN/Creatinine Ratio 12.9 (10.0-20.0); Blood Urea Nitrogen 15 mg/dL (9-23); Calcium 9.6 mg/dL (8.7-10.4); Carbon Dioxide 24 mmol/L (20-31); Glucose 94 mg/dL (74-106); Potassium 4.1 mmol/L (3.5-5.1); Sodium 141 mmol/L (136-145)
[2024-05-03 07:07] LABS: Albumin 4.2 g/dL (3.2-4.8); Aspartate Aminotransferase 30 U/L (13-40)
[2024-05-03 07:08] LABS: Bilirubin, Total 0.5 mg/dL (0.2-1.0)
[2024-05-03 07:10] LABS: Basophils # (auto) 0.1 10 ^3/uL (0-0.2); Basophils % (auto) 0.9 % (0.0-2.0); Eosinophils # (auto) 0.2 10 ^3/uL (0-0.8); Eosinophils % (auto) 2.6 % (0.0-7.0); Hematocrit 38.7 % (41.0-53.0); Hemoglobin 13.8 g/dL (13.5-17.5); Lymphocytes # (auto) 3.4 10 ^3/uL (0.4-5.4); Lymphocytes % (auto) 50.3 % (10.0-50.0); Mean Corpuscular Hgb Conc. 35.6 g/dL (32.0-36.0); Mean Corpuscular Volume 89.8 fL (80.0-100.0); Monocytes # (auto) 0.4 10 ^3/uL (0-1.3); Monocytes % (auto) 6.3 % (0.0-12.0); Neutrophils # (auto) 2.7 10 ^3/uL (1.6-8.6); Neutrophils % (auto) 39.9 % (37.0-80.0); Nucleated Red Blood Cells % 0.2 %; Platelet Count (auto) 184 10^3/uL (140-450); Red Cell Distribution Width 13.2 % (11.8-14.3); White Blood Cell 6.7 10^3/uL (4.4-10.8)
[2024-05-03 07:18] LABS: Chloride 110 mmol/L (98-107)
[2024-05-03 09:00] VITALS: BP 149/102; PULSE 73; RESP 17; TEMP 97.5; O2SAT 100
[2024-05-03] MEDS: PANTOPRAZOLE 40 MG/10 ML VIAL INJ IV SCH (11:53)
--- NOTE | 2024-05-03 12:32 | DVHPN2 ---
Reviewed: Care Plan, H&P, Labs, Medications, Previous Orders, Radiology Changes from previous H/P or p: No Changes Eyes: No Pain, No Vision change, No Conjunctivae inflammation, No Eyelid inflammation, No Other, No Redness ENT: No Ear pain, No Ear discharge, No Nose pain, No Nose discharge, No Nose congestion, No Mouth pain, No Mouth swelling, No Throat pain, No Throat swelling, No Other Cardiovascular: No Chest Pain, No Palpitations, No Orthopnea, No Paroxysmal Noc. Dyspnea, No Edema, No Lt Headedness, No Other Respiratory: No Cough, No Dry, No Shortness of breath, No SOB with excertion, No Wheezing, No Hemoptysis, No Pleuritic Pain, No Sputum, No Other Gastrointestinal: No Nausea, No Vomiting, No Abdominal Pain, No Diarrhea; C onstipation; No Melena, No Hematochezia; Other (blood streaked bowels, constipated (MILD ), nausea, rectal bleeding) Genitourinary: No Dysuria, No Frequency, No Incontinence, No Hematuria, No Retention, No Other Musculoskeletal: No other, No neck pain, No shoulder pain, No arm pain, No back pain, No hand pain, No leg pain, No foot pain Skin: No Rash, No Lesions, No Jaundice, No Bruising, No Other Objective Vitals Vital Signs Date Time Temp Pulse Resp B/P (MAP) Pulse Ox O2 Delivery O2 Flow Rate FiO2 05/03/24 09:00 97.5 73 17 149/102 (118) 100 97.5 05/03/24 00:46 Room Air* 0 21 Intake/Output Intake and Output 05/03/24 07:00 Intake Total 1000 ml Balance 1000 ml Intake Oral 0 ml IV Total 1000 ml Medications Current Medications Medications Dose Ordered Sig/Keira Route Start Time Stop Time Status Last Admin Dose Admin Lorazepam 1 mg Q8HP PRN IV 05/02/24 23:00 05/03/24 09:29 1 MG Pantoprazole Sodium 40 mg BID IV 05/03/24 10:00 05/03/24 11:53 40 MG Sodium Chloride 10 ml Q8HR IV 05/03/24 06:00 05/03/24 06:00 10 ML Acetaminophen/ Hydrocodone Bitart 1 tab Q4HP PRN PO 05/02/24 23:00 05/03/24 00:37 1 TAB Ondansetron HCl 4 mg Q4HP PRN IV 05/02/24 23:00 05/03/24 09:29 4 MG Docusate Sodium 100 mg BIDPRN PRN PO 05/02/24 23:00 Acetaminophen 650 mg Q6HP PRN PO 05/02/24 23:00 Nitroglycerin 0.4 mg Q5MINP PRN SL 05/02/24 23:45 Morphine Sulfate 2 mg Q30M PRN IV 05/02/24 23:45 Laboratory Results Laboratory Tests 05/03/24 05:51 Chemistry Test 05/02/24 13:56 05/03/24 05:51 Albumin 4.8 g/dL (3.2-4.8) 4.2 g/dL (3.2-4.8) Calcium Level 9.9 mg/dL (8.7-10.4) 9.6 mg/dL (8.7-10.4) Total Protein 7.7 g/dL (5.7-8.2) 7.0 g/dL (5.7-8.2) Coagulation Test 05/02/24 13:56 Prothrombin Time 10.3 sec (9.3-11.8) Prothrombin Time INR 0.97 (0.9-1.15) LFT Test 05/02/24 13:56 05/03/24 05:51 Alanine Aminotransferase (ALT) 32 U/L (7-40) 28 U/L (7-40) Alkaline Phosphatase 87 U/L (46-116) 63 U/L (46-116) Aspartate Amino Transferase (AST) 37 U/L (13-40) 30 U/L (13-40) Total Bilirubin 0.4 mg/dL (0.2-1.0) 0.5 mg/dL (0.2-1.0) Urinalysis Test 05/02/24 13:00 Urine Color Light-yellow (Yellow) Urine Clarity Clear (Clear) Urine pH 5.5 (5.0-9.0) Urine Specific [place] 1.015 (1.001-1.035) Urine Protein Negative (Negative) Urine Ketones Negative (Negative) Urine Blood Negative /uL (Negative) Urine Nitrite Negative (Negative) Urine Bilirubin Negative (Negative) Urine Urobilinogen Normal mg/dL (Negative) Urine Leukocyte Esterase Negative /uL (Negative) Urine RBC None seen /hpf (0 - 3) Urine Microscopic WBC /HPF (0-3) Urine Squamous Epithelial Cells None seen /hpf (<5) Urine Bacteria None seen /hpf (None Seen) Urine Glucose Normal mg/dL (Normal) Labs and/or images reviewed: Labs reviewed by me, Image(s) reviewed by me Assessment/Plan Assessment/Plan Rectal bleeding hemoglobin stable at 14.8: Consult for GI Dr. Quiana Nguyen pantoprazole Anxiety Depression History of peptic ulcer disease History of gastric ulcers Plan discussed with: Patient My Orders Orders - DAISY ROSADO MD Procedure Category Date Status Time * Gi Dvh Ash Conveyor Operator CONS 05/03/24 Verified 12:27 Date of Service: May 03, 2024 Billing Provider: DAISY ROSADO MD Common Visit Codes: [id number] INP/OBS CARE(HIGH) DAISY ROSADO MD May 03, 2024 12:32
[2024-05-03 12:49] VITALS: BP 158/90; PULSE 80; RESP 17; TEMP 97.8; O2SAT 99
--- NOTE | 2024-05-03 13:26 | DVHINCON2 ---
GI Consult Consult Note GI consult note Date of Consultation: 05/03/2024 Chief Complaint: Rectal bleed Referring Physician: Dr. Toña Rosado H&P: 53-year-old male with PMH anxiety, depression, PUD, presented to ER with complains of rectal bleeding Patient has two episodes of rectal bleeding one was on Monday and one yesterday No abdominal pain Patient admits to having hard bowel movements and bleeding seemed to occur when he was straining. Usually patient has 1-2 bowel movements every day. No history of hemorrhoids. No colonoscopy in past. No weight loss. No family history of colon cancer No nausea or vomiting. No melena Past Medical History: Anxiety, Depression, PUD, Stomach ulcer Past Surgical History: Denies Social History: NO smoking, drinking ETOH and use of illegal drugs. Family History: Noncontributory Review of Systems: Constitutional: no fever, chill, weight loss HEENT: no eye pain, no hearing loss, no oral lesion, no scleral icterus Heart: no chest pain, no chest pressure Lung: no cough, no dyspnea with exertion Abdomen: see HPI Physical exam: General: NAD, AAOX3 Chest: lung gandara clear to auscultation Heart: RRR, no murmur Abdomen: non-distended, no tenderness to palpation, +BS Labs: Labs Test 05/03/24 05:51 05/02/24 13:56 05/02/24 13:38 05/02/24 13:00 Range/Units White Blood Count 6.7 # 4.4-10.8 10^3/uL Red Blood Count 4.30 L 4.5-5.90 10^6/uL Hemoglobin 13.8 13.5-17.5 g/dL Hematocrit 38.7 L 41.0-53.0 % Mean Corpuscular Volume 89.8 80.0-100.0 fL Mean Corpuscular Hemoglobin 32.0 28.0-32.0 pg Mean Corpuscular Hemoglobin Concent 35.6 32.0-36.0 g/dL Red Cell Distribution Width 13.2 11.8-14.3 % Platelet Count 184 140-450 10^3/uL Mean Platelet Volume 7.3 6.9-10.8 fL Neutrophils (%) (Auto) 39.9 37.0-80.0 % Lymphocytes (%) (Auto) 50.3 H 10.0-50.0 % Monocytes (%) (Auto) 6.3 0.0-12.0 % Eosinophils (%) (Auto) 2.6 0.0-7.0 % Basophils (%) (Auto) 0.9 0.0-2.0 % Neutrophils # (Auto) 2.7 1.6-8.6 10 ^3/uL Lymphocytes # (Auto) 3.4 0.4-5.4 10 ^3/uL Monocytes # (Auto) 0.4 0-1.3 10 ^3/uL Eosinophils # (Auto) 0.2 0-0.8 10 ^3/uL Basophils # (Auto) 0.1 0-0.2 10 ^3/uL Nucleated Red Blood Cells 0.2 % Sodium Level 141 136-145 mmol/L Potassium Level 4.1 3.5-5.1 mmol/L Chloride Level 110 H 98-107 mmol/L Carbon Dioxide Level 24 20-31 mmol/L Anion Gap 7 5-15 Blood Urea Nitrogen 15 9-23 mg/dL Creatinine 1.16 0.700-1.30 mg/dL Glomerular Filtration Rate Calc 74 >90 mL/min BUN/Creatinine Ratio 12.9 10.0-20.0 Serum Glucose 94 74-106 mg/dL Calcium Level 9.6 8.7-10.4 mg/dL Total Bilirubin 0.5 0.2-1.0 mg/dL Aspartate Amino Transferase (AST) 30 13-40 U/L Alanine Aminotransferase (ALT) 28 7-40 U/L Alkaline Phosphatase 63 46-116 U/L Total Protein 7.0 5.7-8.2 g/dL Albumin 4.2 3.2-4.8 g/dL Prothrombin Time 10.3 9.3-11.8 sec Prothrombin Time INR 0.97 0.9-1.15 Plasma/Serum Blood Alcohol < 3.0 <10 mg/dL Stool Occult Blood Positive Negative Stool Occult Blood Sample #3 Negative Urine Color Light-yellow Yellow Urine Clarity Clear Clear Urine pH 5.5 5.0-9.0 Urine Specific [place] 1.015 1.001-1.035 Urine Protein Negative Negative Urine Ketones Negative Negative Urine Blood Negative Negative /uL Urine Nitrite Negative Negative Urine Bilirubin Negative Negative Urine Urobilinogen Normal Negative mg/dL Urine Leukocyte Esterase Negative Negative /uL Urine RBC None seen 0 - 3 /hpf Urine Microscopic WBC 0-3 /HPF Urine Squamous Epithelial Cells None seen <5 /hpf Urine Bacteria None seen None Seen /hpf Urine Glucose Normal Normal mg/dL Imaging: CT abdomen pelvis IMPRESSION: 1. Colonic diverticulosis with no CT evidence for diverticulitis. 2. Moderate stool in the colon. 3. Additional nonacute findings as detailed above Assessment: GI bleed History of PUD Plan: Discussed with Dr. Nguyen Monitor lab Colace. Recommend using lactulose if needed We will continue to monitor Discussed plan with patient, mother at bedside, and RN Thank you for this consult Date of Service: May 03, 2024 Billing Provider: ANTHONY ROSADO Common Visit Codes: CONSULT ONLY Consultation Codes: [id number] CONSULT <45MIN ANTHONY ROSADO May 03, 2024 13:26
[2024-05-03] MEDS ORDERED: [UNRECOGNIZED DRUG - CODE] PO (14:00)
[2024-05-03] MEDS ORDERED: CYCL-839 PO (14:51)
[2024-05-03 16:47] VITALS: BP 141/81; PULSE 74; RESP 17; TEMP 97.9; O2SAT 97
[2024-05-03 21:00] VITALS: BP 108/71; PULSE 67; RESP 17; TEMP 98.2; O2SAT 97
[2024-05-04] VITALS (8 sets, daily range): BP systolic 110–148; BP diastolic 69–97; PULSE 54–94; RESP 18–20; TEMP 97.6–98.7; O2SAT 92–100
--- NOTE | 2024-05-04 09:31 | DVHPN2 ---
Reviewed: Care Plan, H&P, Labs, Medications, Previous Orders, Radiology Changes from previous H/P or p: No Changes Eyes: No Pain, No Vision change, No Conjunctivae inflammation, No Eyelid inflammation, No Other, No Redness ENT: No Ear pain, No Ear discharge, No Nose pain, No Nose discharge, No Nose congestion, No Mouth pain, No Mouth swelling, No Throat pain, No Throat swelling, No Other Cardiovascular: No Chest Pain, No Palpitations, No Orthopnea, No Paroxysmal Noc. Dyspnea, No Edema, No Lt Headedness, No Other Respiratory: No Cough, No Dry, No Shortness of breath, No SOB with excertion, No Wheezing, No Hemoptysis, No Pleuritic Pain, No Sputum, No Other Gastrointestinal: No Nausea, No Vomiting, No Abdominal Pain, No Diarrhea; C onstipation; No Melena, No Hematochezia; Other (blood streaked bowels, constipated (MILD ), nausea, rectal bleeding) Genitourinary: No Dysuria, No Frequency, No Incontinence, No Hematuria, No Retention, No Other Musculoskeletal: No other, No neck pain, No shoulder pain, No arm pain, No back pain, No hand pain, No leg pain, No foot pain Skin: No Rash, No Lesions, No Jaundice, No Bruising, No Other Objective Vitals Vital Signs Date Time Temp Pulse Resp B/P (MAP) Pulse Ox O2 Delivery O2 Flow Rate FiO2 05/04/24 08:00 80 18 95 Room Air* 0 21 05/04/24 05:00 98.7 112/69 (83) 98.7 Intake/Output Intake and Output 05/04/24 07:00 Intake Total 2600 ml Balance 2600 ml Intake Oral 2600 ml # Voids 19 Medications Current Medications Medications Dose Ordered Sig/Keira Route Start Time Stop Time Status Last Admin Dose Admin Lorazepam 1 mg Q8HP PRN IV 05/02/24 23:00 05/04/24 05:29 1 MG Pantoprazole Sodium 40 mg BID IV 05/03/24 10:00 05/03/24 21:15 40 MG Sodium Chloride 10 ml Q8HR IV 05/03/24 06:00 05/04/24 06:00 10 ML Acetaminophen/ Hydrocodone Bitart 1 tab Q4HP PRN PO 05/02/24 23:00 05/04/24 02:37 1 TAB Ondansetron HCl 4 mg Q4HP PRN IV 05/02/24 23:00 05/03/24 09:29 4 MG Docusate Sodium 100 mg BIDPRN PRN PO 05/02/24 23:00 Acetaminophen 650 mg Q6HP PRN PO 05/02/24 23:00 Nitroglycerin 0.4 mg Q5MINP PRN SL 05/02/24 23:45 Morphine Sulfate 2 mg Q30M PRN IV 05/02/24 23:45 Laboratory Results Laboratory Tests 05/03/24 05:51 Urinalysis Test 05/02/24 13:00 Urine Color Light-yellow (Yellow) Urine Clarity Clear (Clear) Urine pH 5.5 (5.0-9.0) Urine Specific [place] 1.015 (1.001-1.035) Urine Protein Negative (Negative) Urine Ketones Negative (Negative) Urine Blood Negative /uL (Negative) Urine Nitrite Negative (Negative) Urine Bilirubin Negative (Negative) Urine Urobilinogen Normal mg/dL (Negative) Urine Leukocyte Esterase Negative /uL (Negative) Urine RBC None seen /hpf (0 - 3) Urine Microscopic WBC /HPF (0-3) Urine Squamous Epithelial Cells None seen /hpf (<5) Urine Bacteria None seen /hpf (None Seen) Urine Glucose Normal mg/dL (Normal) Labs and/or images reviewed: Labs reviewed by me, Image(s) reviewed by me Assessment/Plan Assessment/Plan Rectal bleeding hemoglobin stable at 14.8: Consult for GI Dr. Quiana Nguyen appreciated, pantoprazole Anxiety Depression History of peptic ulcer disease History of gastric ulcers Plan discussed with: Patient My Orders Orders - DAISY ROSADO MD Procedure Category Date Status Time * Gi Dvh Shampoo Assistant CONS 05/03/24 Transmitted 12:27 Date of Service: May 04, 2024 Billing Provider: DAISY ROSADO MD Common Visit Codes: [id number] INP/OBS CARE(HIGH) DAISY ROSADO MD May 04, 2024 09:31
[2024-05-04] MEDS ORDERED: PANT40T PO (09:32)
--- NOTE | 2024-05-04 09:36 | DVHDS2 ---
Discharge Summary Date of Admission May 02, 2024 at 23:32 Date of Discharge: May 04, 2024 Admitting Diagnosis Rectal bleeding Wounds: None Labs/Diagnostic Data: Laboratory Results Test 05/03/24 05:51 05/02/24 13:56 05/02/24 13:38 05/02/24 13:00 White Blood Count 6.7 10^3/uL (4.4-10.8) Red Blood Count 4.30 10^6/uL (4.5-5.90) Hemoglobin 13.8 g/dL (13.5-17.5) Hematocrit 38.7 % (41.0-53.0) Mean Corpuscular Volume 89.8 fL (80.0-100.0) Mean Corpuscular Hemoglobin 32.0 pg (28.0-32.0) Mean Corpuscular Hemoglobin Concent 35.6 g/dL (32.0-36.0) Red Cell Distribution Width 13.2 % (11.8-14.3) Platelet Count 184 10^3/uL (140-450) Mean Platelet Volume 7.3 fL (6.9-10.8) Neutrophils (%) (Auto) 39.9 % (37.0-80.0) Lymphocytes (%) (Auto) 50.3 % (10.0-50.0) Monocytes (%) (Auto) 6.3 % (0.0-12.0) Eosinophils (%) (Auto) 2.6 % (0.0-7.0) Basophils (%) (Auto) 0.9 % (0.0-2.0) Neutrophils # (Auto) 2.7 10 ^3/uL (1.6-8.6) Lymphocytes # (Auto) 3.4 10 ^3/uL (0.4-5.4) Monocytes # (Auto) 0.4 10 ^3/uL (0-1.3) Eosinophils # (Auto) 0.2 10 ^3/uL (0-0.8) Basophils # (Auto) 0.1 10 ^3/uL (0-0.2) Nucleated Red Blood Cells 0.2 % Sodium Level 141 mmol/L (136-145) Potassium Level 4.1 mmol/L (3.5-5.1) Chloride Level 110 mmol/L (98-107) Carbon Dioxide Level 24 mmol/L (20-31) Anion Gap 7 (5-15) Blood Urea Nitrogen 15 mg/dL (9-23) Creatinine 1.16 mg/dL (0.700-1.30) Glomerular Filtration Rate Calc 74 mL/min (>90) BUN/Creatinine Ratio 12.9 (10.0-20.0) Serum Glucose 94 mg/dL (74-106) Calcium Level 9.6 mg/dL (8.7-10.4) Total Bilirubin 0.5 mg/dL (0.2-1.0) Aspartate Amino Transferase (AST) 30 U/L (13-40) Alanine Aminotransferase (ALT) 28 U/L (7-40) Alkaline Phosphatase 63 U/L (46-116) Total Protein 7.0 g/dL (5.7-8.2) Albumin 4.2 g/dL (3.2-4.8) Prothrombin Time 10.3 sec (9.3-11.8) Prothrombin Time INR 0.97 (0.9-1.15) Plasma/Serum Blood Alcohol < 3.0 mg/dL (<10) Stool Occult Blood Positive (Negative) Stool Occult Blood Sample #3 (Negative) Urine Color Light-yellow (Yellow) Urine Clarity Clear (Clear) Urine pH 5.5 (5.0-9.0) Urine Specific [place] 1.015 (1.001-1.035) Urine Protein Negative (Negative) Urine Ketones Negative (Negative) Urine Blood Negative /uL (Negative) Urine Nitrite Negative (Negative) Urine Bilirubin Negative (Negative) Urine Urobilinogen Normal mg/dL (Negative) Urine Leukocyte Esterase Negative /uL (Negative) Urine RBC None seen /hpf (0 - 3) Urine Microscopic WBC /HPF (0-3) Urine Squamous Epithelial Cells None seen /hpf (<5) Urine Bacteria None seen /hpf (None Seen) Urine Glucose Normal mg/dL (Normal) Other Laboratory Tests 05/03/24 05:51 Brief Hx & Hospital Course: 53-year-old male with a history of anxiety depression peptic ulcer disease gastric ulcer came in for blood in the stool hemoglobin 14.8. And stable. All labs were normal. Seen by GI Dr. Quiana Nguyen. No further GI workup. Discharged home on pantoprazole s Consults/Reason for consult GI Dr. Quaina Nguyen Operations or Procedures None Condition at Discharge: Fair Final Diagnosis/Problems List Rectal bleeding hemoglobin stable at 14.8: Consult for GI Dr. Quiana Nguyen appreciated, pantoprazole Anxiety Depression History of peptic ulcer disease History of gastric ulcers Discharge Disposition: Home Discharge Instruct/Medications Diet: Regular Activity: Light activity Follow Up/Referral: Follow up with your primary Medications: Pantoprazole Transmitted to pharmacy 35 (Time taken for discharge summary 35 minutes) Discharge Statement: "Patient was advised to return to the ER or call 911 if any headaches, dizziness, shortness of breath, chest pain, abdominal pain, bleeding, fevers, or worsening of medical condition. Patient was counseled about treatment plan, medications, possible side effects, patientverbalized understanding. All questions were answered to the best of my ability. This discharge took greater then 30 minutes in planning, reviewing documentation, counseling the patient, and discussing with other team members." ASSESSMENT ASSESSMENT Hospital Course Improved Assessment Rectal bleeding hemoglobin stable at 14.8: Consult for GI Dr. Quiana Nguyen appreciated, pantoprazole Anxiety Depression History of peptic ulcer disease History of gastric ulcers Date of Service: May 04, 2024 Billing Provider: DAISY ROSADO MD Common Visit Codes: [id number] INP/OBS CARE(HIGH) DAISY ROSADO MD May 04, 2024 09:36
[2024-05-04 11:04] LABS: Basophils # (auto) 0 10 ^3/uL (0-0.2); Basophils % (auto) 0.5 % (0.0-2.0); Eosinophils # (auto) 0.1 10 ^3/uL (0-0.8); Eosinophils % (auto) 1.4 % (0.0-7.0); Hematocrit 40.7 % (41.0-53.0); Hemoglobin 14.1 g/dL (13.5-17.5); Lymphocytes # (auto) 2.9 10 ^3/uL (0.4-5.4); Lymphocytes % (auto) 48.6 % (10.0-50.0); Mean Corpuscular Hemoglobin 31.1 pg (28.0-32.0); Mean Corpuscular Hgb Conc. 34.7 g/dL (32.0-36.0); Mean Corpuscular Volume 89.4 fL (80.0-100.0); Monocytes # (auto) 0.3 10 ^3/uL (0-1.3); Monocytes % (auto) 5.7 % (0.0-12.0); Neutrophils # (auto) 2.6 10 ^3/uL (1.6-8.6); Neutrophils % (auto) 43.8 % (37.0-80.0); Nucleated Red Blood Cells % 0.1 %; Platelet Count (auto) 188 10^3/uL (140-450); Red Blood Cells 4.55 10^6/uL (4.5-5.90); Red Cell Distribution Width 13.1 % (11.8-14.3)
--- NOTE | 2024-05-04 15:22 | PRN ---
Misceleneous Note Note Note May 04, 2024 Subjective: Patient continues to have small amount of rectal bleeding. He does not want to be discharge. He is concerned. Patient's mother at bedside also complains of lack of diagnosis. Patient has high anxiety. He has no history of colonoscopy. Current Medications Medications (Trade) Dose Ordered Sig/Keira Route Start Time Stop Time Status Last Admin Dose Admin Lorazepam (Ativan Inj) 1 mg Q8HP PRN IV 05/02/24 23:00 05/04/24 14:40 1 MG Pantoprazole Sodium (Protonix) 40 mg BID IV 05/03/24 10:00 05/04/24 10:28 40 MG Sodium Chloride (Saline Lock Ns) 10 ml Q8HR IV 05/03/24 06:00 05/04/24 06:00 10 ML Acetaminophen/ Hydrocodone Bitart ([place] 5/325MG Tab) 1 tab Q4HP PRN PO 05/02/24 23:00 05/04/24 02:37 1 TAB Ondansetron HCl (Zofran) 4 mg Q4HP PRN IV 05/02/24 23:00 05/03/24 09:29 4 MG Docusate Sodium (Colace Capsule) 100 mg BIDPRN PRN PO 05/02/24 23:00 Acetaminophen (Tylenol Tablet) 650 mg Q6HP PRN PO 05/02/24 23:00 Nitroglycerin (Ntrostat Sublingual) 0.4 mg Q5MINP PRN SL 05/02/24 23:45 Morphine Sulfate 2 mg Q30M PRN IV 05/02/24 23:45 Vital Signs Date Time Temp Pulse Resp B/P (MAP) Pulse Ox O2 Delivery O2 Flow Rate FiO2 05/04/24 13:00 98.3 73 20 148/97 (114) 96 98.3 05/04/24 08:00 Room Air* 0 21 Physical exam: General: Alert and oriented lying in bed no distress HEENT: NC/AT EOMI PERRLA O/P clear Heart: Regular rate and rhythm Abdomen: Soft nontender nondistended normoactive bowel sounds Extremity: No clubbing cyanosis or edema Labs Test 05/04/24 10:39 05/03/24 05:51 05/02/24 13:56 05/02/24 13:38 Range/Units White Blood Count 6.0 4.4-10.8 10^3/uL Red Blood Count 4.55 4.5-5.90 10^6/uL Hemoglobin 14.1 13.5-17.5 g/dL Hematocrit 40.7 L 41.0-53.0 % Mean Corpuscular Volume 89.4 80.0-100.0 fL Mean Corpuscular Hemoglobin 31.1 28.0-32.0 pg Mean Corpuscular Hemoglobin Concent 34.7 32.0-36.0 g/dL Red Cell Distribution Width 13.1 11.8-14.3 % Platelet Count 188 140-450 10^3/uL Mean Platelet Volume 6.7 L 6.9-10.8 fL Neutrophils (%) (Auto) 43.8 37.0-80.0 % Lymphocytes (%) (Auto) 48.6 10.0-50.0 % Monocytes (%) (Auto) 5.7 0.0-12.0 % Eosinophils (%) (Auto) 1.4 0.0-7.0 % Basophils (%) (Auto) 0.5 0.0-2.0 % Neutrophils # (Auto) 2.6 1.6-8.6 10 ^3/uL Lymphocytes # (Auto) 2.9 0.4-5.4 10 ^3/uL Monocytes # (Auto) 0.3 0-1.3 10 ^3/uL Eosinophils # (Auto) 0.1 0-0.8 10 ^3/uL Basophils # (Auto) 0 0-0.2 10 ^3/uL Nucleated Red Blood Cells 0.1 % Sodium Level 141 136-145 mmol/L Potassium Level 4.1 3.5-5.1 mmol/L Chloride Level 110 H 98-107 mmol/L Carbon Dioxide Level 24 20-31 mmol/L Anion Gap 7 5-15 Blood Urea Nitrogen 15 9-23 mg/dL Creatinine 1.16 0.700-1.30 mg/dL Glomerular Filtration Rate Calc 74 >90 mL/min BUN/Creatinine Ratio 12.9 10.0-20.0 Serum Glucose 94 74-106 mg/dL Calcium Level 9.6 8.7-10.4 mg/dL Total Bilirubin 0.5 0.2-1.0 mg/dL Aspartate Amino Transferase (AST) 30 13-40 U/L Alanine Aminotransferase (ALT) 28 7-40 U/L Alkaline Phosphatase 63 46-116 U/L Total Protein 7.0 5.7-8.2 g/dL Albumin 4.2 3.2-4.8 g/dL Prothrombin Time 10.3 9.3-11.8 sec Prothrombin Time INR 0.97 0.9-1.15 Plasma/Serum Blood Alcohol < 3.0 <10 mg/dL Stool Occult Blood Positive Negative Stool Occult Blood Sample #3 Negative Test 05/02/24 13:00 Range/Units Urine Color Light-yellow Yellow Urine Clarity Clear Clear Urine pH 5.5 5.0-9.0 Urine Specific [place] 1.015 1.001-1.035 Urine Protein Negative Negative Urine Ketones Negative Negative Urine Blood Negative Negative /uL Urine Nitrite Negative Negative Urine Bilirubin Negative Negative Urine Urobilinogen Normal Negative mg/dL Urine Leukocyte Esterase Negative Negative /uL Urine RBC None seen 0 - 3 /hpf Urine Microscopic WBC 0-3 /HPF Urine Squamous Epithelial Cells None seen <5 /hpf Urine Bacteria None seen None Seen /hpf Urine Glucose Normal Normal mg/dL CT scan shows stool burden and colon diverticulosis Impression: 1. Anxiety 2. Peptic ulcer disease 3. Rectal bleeding 4. Diverticulosis Differential diagnosis includes diverticulosis versus hemorrhoids versus polyp o r tumor versus other. Patient is worried he has colon cancer. His anxiety is exacerbating the situation as the patient is afraid to go home as it would take time to get into an outpatient clinic Recommendation: 1. Clear liquid diet 2. We will prep for colonoscopy with Dr. Nguyen for Monday 3. Risks benefits and alternatives were discussed at length with the patient 4. Further recommendations after colonoscopy ROLAND VALENZUELA MD May 04, 2024 15:22
[2024-05-05] VITALS (8 sets, daily range): BP systolic 95–128; BP diastolic 66–87; PULSE 58–101; RESP 16–19; TEMP 97.1–97.8; O2SAT 94–98
--- NOTE | 2024-05-05 10:36 | DVHPN2 ---
Reviewed: Care Plan, H&P, Labs, Medications, Previous Orders, Radiology Changes from previous H/P or p: No Changes Eyes: No Pain, No Vision change, No Conjunctivae inflammation, No Eyelid inflammation, No Other, No Redness ENT: No Ear pain, No Ear discharge, No Nose pain, No Nose discharge, No Nose congestion, No Mouth pain, No Mouth swelling, No Throat pain, No Throat swelling, No Other Cardiovascular: No Chest Pain, No Palpitations, No Orthopnea, No Paroxysmal Noc. Dyspnea, No Edema, No Lt Headedness, No Other Respiratory: No Cough, No Dry, No Shortness of breath, No SOB with excertion, No Wheezing, No Hemoptysis, No Pleuritic Pain, No Sputum, No Other Gastrointestinal: No Nausea, No Vomiting, No Abdominal Pain, No Diarrhea; C onstipation; No Melena, No Hematochezia; Other (blood streaked bowels, constipated (MILD ), nausea, rectal bleeding) Genitourinary: No Dysuria, No Frequency, No Incontinence, No Hematuria, No Retention, No Other Musculoskeletal: No other, No neck pain, No shoulder pain, No arm pain, No back pain, No hand pain, No leg pain, No foot pain Skin: No Rash, No Lesions, No Jaundice, No Bruising, No Other Objective Vitals Vital Signs Date Time Temp Pulse Resp B/P (MAP) Pulse Ox O2 Delivery O2 Flow Rate FiO2 05/05/24 09:01 97.8 58 16 106/71 (83) 96 97.8 05/05/24 08:00 Room Air* 0 21 Intake/Output Intake and Output 05/05/24 07:00 Intake Total 1350 ml Balance 1350 ml Intake Oral 1350 ml # Voids 17 Medications Current Medications Medications Dose Ordered Sig/Keira Route Start Time Stop Time Status Last Admin Dose Admin Lorazepam 1 mg Q8HP PRN IV 05/02/24 23:00 05/05/24 05:00 1 MG Pantoprazole Sodium 40 mg BID IV 05/03/24 10:00 05/04/24 21:16 40 MG Sodium Chloride 10 ml Q8HR IV 05/03/24 06:00 05/05/24 05:02 10 ML Acetaminophen/ Hydrocodone Bitart 1 tab Q4HP PRN PO 05/02/24 23:00 05/05/24 08:01 1 TAB Ondansetron HCl 4 mg Q4HP PRN IV 05/02/24 23:00 05/05/24 08:00 4 MG Docusate Sodium 100 mg BIDPRN PRN PO 05/02/24 23:00 Acetaminophen 650 mg Q6HP PRN PO 05/02/24 23:00 Nitroglycerin 0.4 mg Q5MINP PRN SL 05/02/24 23:45 Morphine Sulfate 2 mg Q30M PRN IV 05/02/24 23:45 Laboratory Results Laboratory Tests 05/03/24 05:51 05/04/24 10:39 Urinalysis Test 05/02/24 13:00 Urine Color Light-yellow (Yellow) Urine Clarity Clear (Clear) Urine pH 5.5 (5.0-9.0) Urine Specific [place] 1.015 (1.001-1.035) Urine Protein Negative (Negative) Urine Ketones Negative (Negative) Urine Blood Negative /uL (Negative) Urine Nitrite Negative (Negative) Urine Bilirubin Negative (Negative) Urine Urobilinogen Normal mg/dL (Negative) Urine Leukocyte Esterase Negative /uL (Negative) Urine RBC None seen /hpf (0 - 3) Urine Microscopic WBC /HPF (0-3) Urine Squamous Epithelial Cells None seen /hpf (<5) Urine Bacteria None seen /hpf (None Seen) Urine Glucose Normal mg/dL (Normal) Labs and/or images reviewed: Labs reviewed by me, Image(s) reviewed by me Assessment/Plan Assessment/Plan Rectal bleeding hemoglobin stable at 14.8: Consult for GI Dr. Quiana Nguyen appreciated, pantoprazole, patient getting colonoscopy tomorrow by Dr. Quiana Nguyen Anxiety Depression History of peptic ulcer disease History of gastric ulcers Plan discussed with: Patient My Orders Orders - DAISY ROSADO MD Procedure Category Date Status Time * Gi D[facility] [place] [employer] CONS 05/04/24 Transmitted 10:30 Date of Service: May 05, 2024 Billing Provider: DAISY ROSADO MD Common Visit Codes: [id number] INP/OBS CARE(HIGH) DAISY ROSADO MD May 05, 2024 10:36
[2024-05-05] MEDS: GOLYTELY 4L KIT PO ONE ×2 (10:49→21:43)
--- NOTE | 2024-05-05 21:15 | DVHPN2 ---
Progress Note - Dictate Date Seen: May 05, 2024 Medical Necessity Reason Pt with a Central, PICC or Fol: No Subjective No new complaints Patient has not had any further rectal bleeding today but he was concerned about the amount of bleeding he had Patient has started a bowel prep No prior colonoscopy vital signs Vital Sign Date Time Temp Pulse Resp B/P (MAP) Pulse Ox O2 Delivery O2 Flow Rate FiO2 05/05/24 20:00 19 Room Air* 0 21 05/05/24 17:31 97.1 75 128/87 (101) 97 97.1 Total Intake and Output 05/04/24 05/04/24 05/05/24 15:00 23:00 07:00 Intake Total 800 ml 550 ml Balance 800 ml 550 ml medications Current Medications Medications Dose Ordered Sig/Keira Route Start Time Stop Time Status Last Admin Dose Admin Lorazepam 1 mg Q8HP PRN IV 05/02/24 23:00 05/05/24 13:23 1 MG Pantoprazole Sodium 40 mg BID IV 05/03/24 10:00 05/05/24 10:49 40 MG Sodium Chloride 10 ml Q8HR IV 05/03/24 06:00 05/05/24 13:25 10 ML Acetaminophen/ Hydrocodone Bitart 1 tab Q4HP PRN PO 05/02/24 23:00 05/05/24 18:38 1 TAB Ondansetron HCl 4 mg Q4HP PRN IV 05/02/24 23:00 05/05/24 08:00 4 MG Docusate Sodium 100 mg BIDPRN PRN PO 05/02/24 23:00 Acetaminophen 650 mg Q6HP PRN PO 05/02/24 23:00 Nitroglycerin 0.4 mg Q5MINP PRN SL 05/02/24 23:45 Morphine Sulfate 2 mg Q30M PRN IV 05/02/24 23:45 objective General: Alert and oriented lying in bed no distress HEENT: NC/AT EOMI PERRLA O/P clear Heart: Regular rate and rhythm Abdomen: Soft nontender nondistended normoactive bowel sounds Extremity: No clubbing cyanosis or edema laboratory and microbiology Laboratory Tests 05/04/24 10:39 05/03/24 05:51 Test 05/03/24 05:51 Range/Units Serum Glucose 94 74-106 mg/dL Problems(with codes): (1) Generalized weakness (2) Acute lower GI bleeding (3) Anxiety (4) Dehydration (5) Depression Prognosis Plan Complete bowel prep Schedule colonoscopy with possible biopsy possible polypectomy on 05/06/2024 Further recommendations will made after the above Hold aspirin NSAIDs blood thinners Reassurance and support Dietary Evaluation Review Recommendations by RD: Increase Calorie Intake Comments: 1) Initiate Ensure clear qd, d/c when diet advances or if PO intake improves 2) Follow-up with GI 3) Advance to regular diet when medically feasible 4) Educate patient on the importance of high fiber future diet prevent divertiucilitis Expected Outcomes/Goals: 1) appetite and labs to improve 2) active bleeding to resolve 3) diet to advance 4) f/u in 3 days Plan discussed with: Patient FERNANDO RUIZ MD May 05, 2024 21:15
[2024-05-05] MEDS: HYDROcodone-ACET 5/325MG TAB PO ONE (21:42)
[2024-05-06] VITALS (9 sets, daily range): BP systolic 114–153; BP diastolic 74–105; PULSE 62–80; RESP 12–19; TEMP 97.3–98.8; O2SAT 94–100
[2024-05-06 05:59] LABS: Basophils # (auto) 0 10 ^3/uL (0-0.2); Basophils % (auto) 0.7 % (0.0-2.0); Eosinophils # (auto) 0.2 10 ^3/uL (0-0.8); Eosinophils % (auto) 3.2 % (0.0-7.0); Hematocrit 39.6 % (41.0-53.0); Hemoglobin 14.2 g/dL (13.5-17.5); Lymphocytes # (auto) 3.2 10 ^3/uL (0.4-5.4); Mean Corpuscular Hemoglobin 32.1 pg (28.0-32.0); Mean Corpuscular Volume 89.1 fL (80.0-100.0); Monocytes # (auto) 0.5 10 ^3/uL (0-1.3); Monocytes % (auto) 7.5 % (0.0-12.0); Neutrophils # (auto) 2.3 10 ^3/uL (1.6-8.6); Neutrophils % (auto) 37.6 % (37.0-80.0); Nucleated Red Blood Cells % 0.1 %; Platelet Count (auto) 191 10^3/uL (140-450); Red Blood Cells 4.44 10^6/uL (4.5-5.90); White Blood Cell 6.2 10^3/uL (4.4-10.8)
[2024-05-06] MEDS: MAGNESIUM CITRATE SOLUTION 300 ML BTL PO ONE (06:06)
[2024-05-06] MEDS: GOLYTELY 4L KIT PO ONE (06:08)
[2024-05-06] MEDS ORDERED: SODIUM CHLORIDE LOCK 10 ML ONE (07:49)
--- NOTE | 2024-05-06 10:37 | DVHPN2 ---
Reviewed: Care Plan, H&P, Labs, Medications, Previous Orders, Radiology Changes from previous H/P or p: No Changes Eyes: No Pain, No Vision change, No Conjunctivae inflammation, No Eyelid inflammation, No Other, No Redness ENT: No Ear pain, No Ear discharge, No Nose pain, No Nose discharge, No Nose congestion, No Mouth pain, No Mouth swelling, No Throat pain, No Throat swelling, No Other Cardiovascular: No Chest Pain, No Palpitations, No Orthopnea, No Paroxysmal Noc. Dyspnea, No Edema, No Lt Headedness, No Other Respiratory: No Cough, No Dry, No Shortness of breath, No SOB with excertion, No Wheezing, No Hemoptysis, No Pleuritic Pain, No Sputum, No Other Gastrointestinal: No Nausea, No Vomiting, No Abdominal Pain, No Diarrhea; C onstipation; No Melena, No Hematochezia; Other (blood streaked bowels, constipated (MILD ), nausea, rectal bleeding) Genitourinary: No Dysuria, No Frequency, No Incontinence, No Hematuria, No Retention, No Other Musculoskeletal: No other, No neck pain, No shoulder pain, No arm pain, No back pain, No hand pain, No leg pain, No foot pain Skin: No Rash, No Lesions, No Jaundice, No Bruising, No Other Objective Vitals Vital Signs Date Time Temp Pulse Resp B/P (MAP) Pulse Ox O2 Delivery O2 Flow Rate FiO2 05/06/24 09:00 97.3 66 17 123/80 (94) 94 97.3 05/05/24 20:00 Room Air* 0 21 Intake/Output Intake and Output 05/06/24 07:00 Intake Total 3000 ml Balance 3000 ml Intake Oral 3000 ml # Voids 11 # Bowel Movements 16 Medications Current Medications Medications Dose Ordered Sig/Keira Route Start Time Stop Time Status Last Admin Dose Admin Lorazepam 1 mg Q8HP PRN IV 05/02/24 23:00 05/05/24 22:49 1 MG Pantoprazole Sodium 40 mg BID IV 05/03/24 10:00 05/06/24 09:46 40 MG Sodium Chloride 10 ml Q8HR IV 05/03/24 06:00 05/06/24 06:06 10 ML Acetaminophen/ Hydrocodone Bitart 1 tab Q4HP PRN PO 05/02/24 23:00 05/05/24 18:38 1 TAB Ondansetron HCl 4 mg Q4HP PRN IV 05/02/24 23:00 05/05/24 08:00 4 MG Docusate Sodium 100 mg BIDPRN PRN PO 05/02/24 23:00 Acetaminophen 650 mg Q6HP PRN PO 05/02/24 23:00 Nitroglycerin 0.4 mg Q5MINP PRN SL 05/02/24 23:45 Morphine Sulfate 2 mg Q30M PRN IV 05/02/24 23:45 Laboratory Results Laboratory Tests 05/03/24 05:51 05/06/24 04:39 Urinalysis Test 05/02/24 13:00 Urine Color Light-yellow (Yellow) Urine Clarity Clear (Clear) Urine pH 5.5 (5.0-9.0) Urine Specific [place] 1.015 (1.001-1.035) Urine Protein Negative (Negative) Urine Ketones Negative (Negative) Urine Blood Negative /uL (Negative) Urine Nitrite Negative (Negative) Urine Bilirubin Negative (Negative) Urine Urobilinogen Normal mg/dL (Negative) Urine Leukocyte Esterase Negative /uL (Negative) Urine RBC None seen /hpf (0 - 3) Urine Microscopic WBC /HPF (0-3) Urine Squamous Epithelial Cells None seen /hpf (<5) Urine Bacteria None seen /hpf (None Seen) Urine Glucose Normal mg/dL (Normal) Labs and/or images reviewed: Labs reviewed by me, Image(s) reviewed by me Assessment/Plan Assessment/Plan Rectal bleeding hemoglobin stable at 14.8: Consult for GI Dr. Quiana Nguyen appreciated, pantoprazole, patient getting colonoscopy today by Dr. Quiana Nguyen Anxiety Depression History of peptic ulcer disease History of gastric ulcers Plan discussed with: Patient My Orders Orders - DAISY ROSADO MD Procedure Category Date Status Time * Gi [facility] [employer] [place] [employer] CONS 05/05/24 Transmitted 11:17 Obtain Consent For: ORDERS 05/05/24 Transmitted 18:57 Obtain Consent For EMILY 05/05/24 In Process Anesthesia 18:57 Date of Service: May 06, 2024 Billing Provider: DAISY ROSADO MD Common Visit Codes: [id number] INP/OBS CARE(HIGH) DAISY ROSADO MD May 06, 2024 10:37
[2024-05-06] MEDS: fentaNYL CITRATE 100 MCG/2 ML VL ONE (13:30)
[2024-05-06] MEDS: MIDAZOLAM HCL 5 MG/ML-1ML VIAL ONE (13:30)
[2024-05-06] MEDS: diphenhdrAMINE HCL 50 MG/1 ML VL ONE (13:30)
--- NOTE | 2024-05-06 13:46 | DVHOP2 ---
Operative Report DATE OF OPERATION: 05/06/24 PROCEDURE: Diagnostic Colonoscopy. PREOPERATIVE INDICATION: The patient is a 53 -year-old male undergoing colonoscopy for evaluation of rectal bleeding POSTOPERATIVE DIAGNOSES: 1. Trace to 1+ internal hemorrhoids otherwise essentially completely normal colonoscopy exam to caecum and terminal ileum PROCEDURE PERFORMED BY: Fernando Nguyen M.D. SCOPE: Olympus videocolonoscope. ASA CLASS: 2 PREOPERATIVE MEDICATIONS: Versed 3 mg, Fentanyl 75 mcg, Benadryl 50 mg PROCEDURE IN DETAIL: After obtaining an informed consent, the patient was placed on left lateral decubitus position. He was then sedated with the above medications. A rectal examination was performed that was normal. The colonoscope was then passed through the anus into the rectosigmoid and through the descending, transverse, and ascending colon up to the cecum with visualization of the appendiceal orifice, base of the cecum and the ileocecal valve. The colonoscope was then withdrawn. The distal 5-10 cm of the terminal ileum were normal No polyps or masses were seen. There was no colitis. There was no fresh or old blood in the colon. There was no clear-cut diverticular disease. On retroflexion and straight on view he had trace to 1+ internal hemorrhoids The patient tolerated the procedure well without difficulty. WITHDRAWAL TIME: 6 minute QUALITY OF THE PREP: Mode Bowel Prep score: 9. COMPLICATIONS : None SPECIMENS: None DISPOSITION: Transfer back to the floor D/C to home PLAN: 1. Repeat colonoscopy in 10 years 2. Resume GI soft diet advance as tolerated 3. Patient is cleared for discharge from GI point of view 4. He can follow up with my office as an outpatient as needed FERNANDO NGUYEN MD May 06, 2024 13:46
[2024-05-07 01:00] VITALS: BP 127/81; PULSE 59; RESP 18; TEMP 98; O2SAT 97
[2024-05-07 05:00] VITALS: BP 134/85; PULSE 62; RESP 18; TEMP 97.7; O2SAT 96
[2024-05-07 09:00] VITALS: BP 138/74; PULSE 58; RESP 20; TEMP 98.2; O2SAT 96
--- NOTE | 2024-05-07 10:43 | DVHPN2 ---
Reviewed: Care Plan, H&P, Labs, Medications, Previous Orders, Radiology Changes from previous H/P or p: No Changes Eyes: No Pain, No Vision change, No Conjunctivae inflammation, No Eyelid inflammation, No Other, No Redness ENT: No Ear pain, No Ear discharge, No Nose pain, No Nose discharge, No Nose congestion, No Mouth pain, No Mouth swelling, No Throat pain, No Throat swelling, No Other Cardiovascular: No Chest Pain, No Palpitations, No Orthopnea, No Paroxysmal Noc. Dyspnea, No Edema, No Lt Headedness, No Other Respiratory: No Cough, No Dry, No Shortness of breath, No SOB with excertion, No Wheezing, No Hemoptysis, No Pleuritic Pain, No Sputum, No Other Gastrointestinal: No Nausea, No Vomiting, No Abdominal Pain, No Diarrhea; C onstipation; No Melena, No Hematochezia; Other (blood streaked bowels, constipated (MILD ), nausea, rectal bleeding) Genitourinary: No Dysuria, No Frequency, No Incontinence, No Hematuria, No Retention, No Other Musculoskeletal: No other, No neck pain, No shoulder pain, No arm pain, No back pain, No hand pain, No leg pain, No foot pain Skin: No Rash, No Lesions, No Jaundice, No Bruising, No Other Objective Vitals Vital Signs Date Time Temp Pulse Resp B/P (MAP) Pulse Ox O2 Delivery O2 Flow Rate FiO2 05/07/24 09:00 98.2 58 20 138/74 (95) 96 98.2 05/06/24 20:00 Room Air* 0 21 Intake/Output Intake and Output 05/07/24 07:00 Intake Total 1000 ml Balance 1000 ml Intake Oral 900 ml IV Total 100 ml # Voids 11 Medications Current Medications Medications Dose Ordered Sig/Keira Route Start Time Stop Time Status Last Admin Dose Admin Lorazepam 1 mg Q8HP PRN IV 05/02/24 23:00 05/07/24 07:03 1 MG Pantoprazole Sodium 40 mg BID IV 05/03/24 10:00 05/07/24 10:34 40 MG Sodium Chloride 10 ml Q8HR IV 05/03/24 06:00 05/07/24 06:00 10 ML Acetaminophen/ Hydrocodone Bitart 1 tab Q4HP PRN PO 05/02/24 23:00 05/07/24 07:03 1 TAB Ondansetron HCl 4 mg Q4HP PRN IV 05/02/24 23:00 05/05/24 08:00 4 MG Docusate Sodium 100 mg BIDPRN PRN PO 05/02/24 23:00 Acetaminophen 650 mg Q6HP PRN PO 05/02/24 23:00 Nitroglycerin 0.4 mg Q5MINP PRN SL 05/02/24 23:45 Morphine Sulfate 2 mg Q30M PRN IV 05/02/24 23:45 Laboratory Results Laboratory Tests 05/03/24 05:51 05/06/24 04:39 Urinalysis Test 05/02/24 13:00 Urine Color Light-yellow (Yellow) Urine Clarity Clear (Clear) Urine pH 5.5 (5.0-9.0) Urine Specific [place] 1.015 (1.001-1.035) Urine Protein Negative (Negative) Urine Ketones Negative (Negative) Urine Blood Negative /uL (Negative) Urine Nitrite Negative (Negative) Urine Bilirubin Negative (Negative) Urine Urobilinogen Normal mg/dL (Negative) Urine Leukocyte Esterase Negative /uL (Negative) Urine RBC None seen /hpf (0 - 3) Urine Microscopic WBC /HPF (0-3) Urine Squamous Epithelial Cells None seen /hpf (<5) Urine Bacteria None seen /hpf (None Seen) Urine Glucose Normal mg/dL (Normal) Labs and/or images reviewed: Labs reviewed by me, Image(s) reviewed by me Assessment/Plan Assessment/Plan Rectal bleeding hemoglobin stable at 14.8: Consult for GI Dr. Quiana Nguyen appreciated, pantoprazole, Grade 1 internal hemorrhoids by colonoscopy by Dr. Quiana Nguyen Anxiety Depression History of peptic ulcer disease History of gastric ulcers Plan discussed with: Patient Date of Service: May 07, 2024 Billing Provider: DAISY ROSADO MD Common Visit Codes: [id number] INP/OBS CARE(HIGH) DAISY ROSADO MD May 07, 2024 10:43
[2024-05-07] MEDS ORDERED: HYDR25SU21 PR (10:44)
--- NOTE | 2024-05-07 11:11 | DVHPN2 ---
Progress Note Date Seen: May 07, 2024 Resident Creating Document: YEIMY TRAN RESIDENT Medical Necessity Reason Pt with a Central, PICC or Fol: No Subjective Review of Systems No new complaints Patient has not had any further rectal bleeding Patient has started a bowel prep No prior colonoscopy Objective vital signs Vital Sign Date Time Temp Pulse Resp B/P (MAP) Pulse Ox O2 Delivery O2 Flow Rate FiO2 05/07/24 09:00 98.2 58 20 138/74 (95) 96 98.2 05/06/24 20:00 Room Air* 0 21 Total Intake and Output 05/06/24 05/06/24 05/07/24 15:00 23:00 07:00 Intake Total 100 ml 400 ml 500 ml Balance 100 ml 400 ml 500 ml medications Current Medications Medications Dose Ordered Sig/Keira Route Start Time Stop Time Status Last Admin Dose Admin Lorazepam 1 mg Q8HP PRN IV 05/02/24 23:00 05/07/24 07:03 1 MG Pantoprazole Sodium 40 mg BID IV 05/03/24 10:00 05/07/24 10:34 40 MG Sodium Chloride 10 ml Q8HR IV 05/03/24 06:00 05/07/24 06:00 10 ML Acetaminophen/ Hydrocodone Bitart 1 tab Q4HP PRN PO 05/02/24 23:00 05/07/24 07:03 1 TAB Ondansetron HCl 4 mg Q4HP PRN IV 05/02/24 23:00 05/05/24 08:00 4 MG Docusate Sodium 100 mg BIDPRN PRN PO 05/02/24 23:00 Acetaminophen 650 mg Q6HP PRN PO 05/02/24 23:00 Nitroglycerin 0.4 mg Q5MINP PRN SL 05/02/24 23:45 Morphine Sulfate 2 mg Q30M PRN IV 05/02/24 23:45 Examination General Appearance: Cooperative. Well developed. Well nourished. NAD Head Exam: Normal inspection Neck Exam: Normal inspection. Non-tender. Normal alignment Pulmonary/Respiratory: Chest non-tender. Clear bilateral breath sounds, no crackles, no wheezing. Cardiovascular/Chest: Regular rate and rhythm. No murmurs. No JVD. Abdominal Exam: Normal bowel sounds. Soft. normal abdomen, no visible veins, Nontender. No hepatospenomegaly. No masses Ankle Exam: Negative ankle edema Neuro/Mental Status: A&O x4. Coherent. Thoughts/Psych: Normal thought pattern. Appropriate mood and affect. Good judgement and insight Skin Exam: Normal inspection. Normal color. Warm. Dry laboratory and microbiology Laboratory Tests 05/06/24 04:39 05/03/24 05:51 Test 05/03/24 05:51 Range/Units Serum Glucose 94 74-106 mg/dL Labs and/or images reviewed: Labs reviewed by me, Image(s) reviewed by me Problem List/Assessment/Plan Problem List/Assessment/Plan Generalized weakness Acute lower GI bleeding Anxiety Dehydration Depression Trace to 1+ internal hemorrhoids seen on colonoscopy Plan Completed colonoscopy yesterday on 05/07/2019 Hold aspirin NSAIDs blood thinners Reassurance and support Repeat colonoscopy in 10 years. Soft diet, advance as tolerated Patient is cleared for discharge from GI point of view Follow up with GI in the outpatient clinic Diet rich and high-fiber encouraged Plan discussed with: Patient, Other (RN) Dietary Evaluation Review Recommendations by RD: Increase Calorie Intake Comments: 1) Initiate Ensure clear qd, d/c when diet advances or if PO intake improves 2) Follow-up with GI 3) Advance to regular diet when medically feasible 4) Educate patient on the importance of high fiber future diet prevent divertiucilitis Expected Outcomes/Goals: 1) appetite and labs to improve 2) active bleeding to resolve 3) diet to advance 4) f/u in 3 days YEIMY TRAN RESIDENT May 07, 2024 11:11
[2024-05-07 13:00] VITALS: BP 124/77; PULSE 70; RESP 20; TEMP 97.4; O2SAT 97
[2024-05-07 13:50] VITALS: BP 138/74; PULSE 58; RESP 20; TEMP 98.2; O2SAT 96
[2024-05-07] MEDS ORDERED: DOCUSATE SOD 100 MG CAP PO SCH (22:00)
== END 2024-05-07 14:40 | disposition home or self-care (01) | DRG 254 ==
LOC: ER 12:24 → OVERFLOW 23:32 → CENTRAL 05-03 03:54
PROVIDERS: ADMIT Family Medicine; ATTEND Family Medicine
PROC: 0DJD8ZZ Inspection of Lower Intestinal Tract, Via Natural or Artificial Opening Endoscopic (ICD-10-PCS; principal; 2024-05-06 13:30)
DX: K64.8 Other hemorrhoids (principal); E86.0 Dehydration; F32.A Depression, unspecified; F41.9 Anxiety disorder, unspecified; K59.00 Constipation, unspecified; Z79.899 Other long term (current) drug therapy; Z87.11 Personal history of peptic ulcer disease
CPT/HCPCS: 36415; 45378; 74176; 80053; 80320; 81001; 82270; 85025; 85610; 96360; G0378; J2250; J2405; J2470

== ENCOUNTER 2024-11-13 19:25 | Inpatient (IN) | payer MEDICAID ==
[~2024-11-13] VITALS: Ht 167.6 cm; Wt 70.9 kg
[~2024-11-13 19:25] MED LIST changes: -CHL10C PO; -CHL25C PO; +CYCL-839 PO; -ESCI10TA PO; -ESCI20TA PO; -GABA-1250 PO; +HYDR25SU21 PR; -LEVO750T8 PO; +LORA-1121 PO; -NAPR-746 PO; -ONDA-144 PO; +QUET200T4 PO; -SULF400T11 PO; +TRAZ-228 PO; +[UNRECOGNIZED DRUG - CODE] PO
--- NOTE | 2024-11-13 19:51 | ECG ---
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
--- NOTE | 2024-11-13 20:18 | ED.PDOC ---
HPI (NEURO) HPI Comments This is a 54 year-old male who presents to the ED with a chief complaint of syncopal episode yesterday, with associated symptoms of dizziness, N, and unsteady gait onset since. Patient reports syncopal episode occurred spontaneously last night when using the restroom. Patient reports hitting the back of his head following syncopal episode. Patient denies this happening before and further denies associated symptoms of headache, chest pain, V/D, zana temesis, or blurred vision. REVIEW OF SYSTEMS: General: Positive unsteady gait. No fever, no chills, no fatigue HEENT: No sore throat, no earache, no congestion, no neck pain. Cardiac: No chest pain. No palpitations. Lungs: No shortness of breath, no cough. GI: No abdominal pain. Positive nausea. No vomiting. no diarrhea, no constipation : No flank pain. No dysuria, frequency, or urgency. Musculoskeletal: No joint pain. no joint swelling, no extremity edema. Skin: No rash, no itching. Neuro: Positive syncopal episode. No headache, Positive dizziness, no weakness PHYSICAL EXAM: General: Awake, alert and oriented. No acute distress. Skin: Skin in warm, dry and intact. Appropriate color for ethnicity. HEENT: The head is normocephalic and atraumatic. Conjunctivae are clear without exudates or hemorrhage. Sclera is non-icteric. EOM are intact. No signs of nystagmus. Eyelids are normal in appearance without swelling or lesions. Oral mucosa is pink and moist Neck: The neck is supple with painful range of motion. No JVD. Cardiac: Heart rate and rhythm are normal. No murmurs, gallops, or rubs are auscultated. Respiratory: No signs of respiratory distress. Lung sounds are clear in all lobes bilaterally without rales, rhonchi, or wheezes. Abdominal: No abdominal tenderness. Abdomen is soft, without distention, guarding or rigidity. Bowel sounds are present and normoactive in all four quadrants. Extremities: Upper and lower extremities are atraumatic in appearance without deformity or edema. Neurological: The patient is awake, alert and oriented to person, place, and time with normal speech. Speech is clear. There is no facial asymmetry. Strength in upper and lower extremities intact. Sensation intact. Normal gait. Psychiatric: Appropriate mood and affect. Good judgement and insight. Chief Complaint: Syncope Time Seen by MD: 19:42 Primary Care Provider: DOROTHY Valerio Notes: Nurses Notes, Medications, Allergies Information Source: Patient Mode of Arrival: Ambulatory Severity: Moderate Headache Severity: Moderate Timing: Days Duration: Since onset Prehospital treatment: None Circumstances: Spontaneous Symptoms: Syncope, Other (Nausea, dizziness, unsteady gait) Associated Signs and Symptoms: Nausea, Other (dizziness, unsteady gait) Past Medical History PAST MEDICAL HISTORY: Anxiety, Depression, PUD Surgical History: Denies all surgeries Family History Family History: Unknown Social History Smoker: Non-Smoker Alcohol: Sober Drugs: Marijuana Lives In: Home EKG EKG : Pulse Rate (adult): 74 [place]: Normal Cardiac Rhythm: NSR Block: None Hypertrophy: None ST: Normal Was a procedure done? Was a procedure done?: No Differential Diagnosis (SZ) Seizure: Syncope Headache: Cluster, Migraine, Closed Head Injury, Post-Traumatic, Sinusitis, Other (Differential diagnoses considered include but are not limited to cardiac structural disease, arrhythmia, acute coronary syndrome, orthostasis, pulmonary embolism, dissection, seizure, basilar stroke, intracranial hemorrhage, other.) X-Ray, Labs, Meds, VS Vital Signs Date Time Temp Pulse Resp B/P (MAP) Pulse Ox O2 Delivery O2 Flow Rate FiO2 11/13/24 22:03 97.5 72 16 143/91 (108) 97 97.5 11/13/24 20:18 74 11/13/24 19:37 74 11/13/24 19:31 98.9 84 16 153/93 95 98.9 Lab Test 11/13/24 21:55 11/13/24 20:12 11/13/24 19:40 Range/Units Troponin I High Sensitivity 4 4 </=54 ng/L Thyroid Stimulating Hormone (TSH) 2.79 0.55-4.78 uIU/mL White Blood Count 7.1 4.4-10.8 10^3/uL Red Blood Count 4.69 4.5-5.90 10^6/uL Hemoglobin 14.9 13.5-17.5 g/dL Hematocrit 41.8 41.0-53.0 % Mean Corpuscular Volume 89.1 80.0-100.0 fL Mean Corpuscular Hemoglobin 31.8 28.0-32.0 pg Mean Corpuscular Hemoglobin Concent 35.7 32.0-36.0 g/dL Red Cell Distribution Width 14.4 H 11.8-14.3 % Platelet Count 220 140-450 10^3/uL Mean Platelet Volume 7.2 6.9-10.8 fL Neutrophils (%) (Auto) 54.6 37.0-80.0 % Lymphocytes (%) (Auto) 35.9 10.0-50.0 % Monocytes (%) (Auto) 7.5 0.0-12.0 % Eosinophils (%) (Auto) 1.4 0.0-7.0 % Basophils (%) (Auto) 0.6 0.0-2.0 % Neutrophils # (Auto) 3.9 1.6-8.6 10 ^3/uL Lymphocytes # (Auto) 2.6 0.4-5.4 10 ^3/uL Monocytes # (Auto) 0.5 0-1.3 10 ^3/uL Eosinophils # (Auto) 0.1 0-0.8 10 ^3/uL Basophils # (Auto) 0 0-0.2 10 ^3/uL Nucleated Red Blood Cells 0.1 % Sodium Level 145 136-145 mmol/L Potassium Level 3.8 3.5-5.1 mmol/L Chloride Level 111 H 98-107 mmol/L Carbon Dioxide Level 21 20-31 mmol/L Anion Gap 13 5-15 Blood Urea Nitrogen 12 9-23 mg/dL Creatinine 1.28 0.700-1.30 mg/dL Glomerular Filtration Rate Calc 66 >90 mL/min BUN/Creatinine Ratio 9.4 L 10.0-20.0 Serum Glucose 89 74-106 mg/dL Calcium Level 8.9 8.7-10.4 mg/dL B-Type Natriuretic Peptide 13.20 0-100 pg/mL POC Glucose 88 70-106 mg/dl Current Medications Medications (Trade) Dose Ordered Sig/Keira Route Start Time Stop Time Status Last Admin Sodium Chloride 1,000 ml @ 1,000 mls/hr Q1H ONCE IV 11/13/24 20:15 11/13/24 21:14 DC 11/13/24 21:[address] [address] Ph: [phone] DIAGNOSTIC IMAGING Diagnostic Imaging Report : [id number] Signed PATIENT: ANUPAMA EVANS ACCT: [id number] UNIT: [id number] : 1970 LOC: ER ROOM / BED: / AGE / SEX: 54 / M ADM STATUS: REG ER SERVICE 03 ORDERING PHYSICIAN: BAYLEE FRYE MD PROCEDURE(s): CXR1 - CHEST XRAY 1 VIEW REASON: Syncope ORDER NUMBER(s): [id number], ACCESSION NUMBER(s): [id number] CLINICAL HISTORY: Syncope TECHNIQUE: Single view of the chest was obtained. COMPARISON: XY CHEST PORTABLE on DOS: 12/05/23, XY CHEST XRAY 1 VIEW on DOS: 08/17/22, CHEST TWO VIEWS ROUTINE on DOS: 12/06/18 FINDINGS: The heart size and pulmonary vasculature are normal. The lungs are clear. IMPRESSION: NO ACUTE CARDIOPULMONARY PROCESS. [place] [address] Ph: [phone] DIAGNOSTIC IMAGING Diagnostic Imaging Report : [id number] Signed PATIENT: ANUPAMA EVANS ACCT: [id number] UNIT: [id number] : 1970 LOC: ER ROOM / BED: / AGE / SEX: 54 / M ADM STATUS: REG ER SERVICE 03 ORDERING PHYSICIAN: BAYLEE FRYE MD PROCEDURE(s): HWOCT - HEAD WITHOUT CONTRAST REASON: Syncope, head injury, headache, dizziness ORDER NUMBER(s): [id number], ACCESSION NUMBER(s): [id number] Exam: CT HEAD WITHOUT CONTRAST History: Syncope, head injury, headache, dizziness Technique: [address] images through the posterior fossa and the supratentorial compartment were acquired without contrast and imaged using soft tissue and bone algorithms. RADIATION DOSE: DLP 863.9 mGy.cm; CTDI vol 53.99 mGy. Comparison: CT BRAIN on DOS: 04/24/24, HEAD WITHOUT CONTRAST on DOS: 03/12/21 Findings: There is no evidence of an intracranial hemorrhage, acute large vessel infarct, mass effect, or midline shift. There is no significant cerebral atrophy. No significant calcification of the carotid siphons. The calvarium, orbits, paranasal sinuses, sella, middle ears, and mastoids are unremarkable. The superficial soft tissues are within normal limits. Impression: 1. No acute intracranial abnormality. Images Reviewed?: Images reviewed and evaluated by me Time of 1ST Reevaluation: 20:35 Reevaluation 1ST: Unchanged Patient Education/Counseling: Other (Need for admission) Family Education/Counseling: No Family Present Medical Screening: No EMC Exist At This Time Departure 1 Departure Time of Disposition: 22:02 Impression: Primary Impression: Syncope Additional Impressions: Dizziness Closed head injury Headache Disposition: ADMITTED INPATIENT Condition: Stable Comments MDM: Patient admitted to hospitalist service for further treatment, evaluation and monitoring. Extensive evaluation was performed in attempt to identify or rule out: (See differential diagnosis section) The following tests were ordered, and results were reviewed by me and discussed with patient: (See diagnostic results section) The following test were independently interpreted by me: EKG I reviewed and agreed with the following test results read by other providers: Chest x-ray, CT head Discussion of management or test interpretation with external physician/other qualified health care team coordinator scheduler: N/A Decision regarding hospitalization or escalation of hospital level of care: Risk and benefits of admission for further treatment of patient's condition was considered. Due to patient's current clinical condition, high risk of decline and poor outcome if discharged and need for further inpatient management and monitoring, patient will be admitted to the hospital. Critical Care Note Critical Care Time?: No Stability Stability form required: No Heart Score Heart Score: Heart Score Response (Comments) Value History Slightly Suspicious 0 EKG Normal 0 Age 45-64 1 Risk Factors No known risk factors 0 Troponin Normal limit 0 Total 1 I personally scribed for BAYLEE FRYE MD ([email or web address]) on 11/13/24 at 20:18. Electronically submitted by Beena Weiss ([email or web address]). I personally scribed for BAYLEE FRYE MD ([email or web address]) on 11/13/24 at 20:41. Electronically submitted by Beena Weiss ([email or web address]). I personally scribed for BAYLEE FRYE MD ([email or web address]) on 11/13/24 at 20:47. Electronically submitted by Beena Weiss ([email or web address]). BAYLEE FRYE MD Nov 13, 2024 20:18
--- NOTE | 2024-11-13 20:37 | DVH ---
CLINICAL HISTORY: Syncope TECHNIQUE: Single view of the chest was obtained. COMPARISON: XY CHEST PORTABLE on DOS: 12/05/23, XY CHEST XRAY 1 VIEW on DOS: 08/17/22, CHEST TWO VIEWS ROUTINE on DOS: 12/06/18 FINDINGS: The heart size and pulmonary vasculature are normal. The lungs are clear. IMPRESSION: NO ACUTE CARDIOPULMONARY PROCESS.
--- NOTE | 2024-11-13 20:44 | DVH ---
Exam: CT HEAD WITHOUT CONTRAST History: Syncope, head injury, headache, dizziness Technique: [address] images through the posterior fossa and the supratentorial compart ment were acquired without contrast and imaged using soft tissue and bone algorithms. RADIATION DOSE: DLP 863.9 mGy.cm; CTDI vol 53.99 mGy. Comparison: CT BRAIN on DOS: 04/24/24, HEAD WITHOUT CONTRAST on DOS: 03/12/21 Findings: There is no evidence of an intracranial hemorrhage, acute large vessel infarct, mass effect, or midli ne shift. There is no significant cerebral atrophy. No significant calcification of the carotid siphons. The calvarium, orbits, paranasal sinuses, sella, middle ears, and mastoids are unremarkable. The superficial soft tissues are within normal limits. Impression: 1. No acute intracranial abnormality.
[2024-11-13 21:11] LABS: Hematocrit 41.8 % (41.0-53.0); Hemoglobin 14.9 g/dL (13.5-17.5); Mean Corpuscular Hemoglobin 31.8 pg (28.0-32.0); Mean Corpuscular Volume 89.1 fL (80.0-100.0); Nucleated Red Blood Cells % 0.1 %
[2024-11-13 21:17] LABS: Potassium 3.8 mmol/L (3.5-5.1); Sodium 145 mmol/L (136-145)
[2024-11-13 21:18] LABS: Anion Gap 13 (5-15); Carbon Dioxide 21 mmol/L (20-31)
[2024-11-13 21:19] LABS: Calcium 8.9 mg/dL (8.7-10.4)
[2024-11-13] MEDS: SODIUM CHLORIDE 0.9% 1,000 ML IV ONE (21:23)
[2024-11-13 21:24] LABS: BUN/Creatinine Ratio 9.4 (10.0-20.0); Blood Urea Nitrogen 12 mg/dL (9-23); Glucose 89 mg/dL (74-106)
[2024-11-13 21:35] LABS: Chloride 111 mmol/L (98-107)
[2024-11-13] MEDS ORDERED: ONDANSETRON HCL 4 MG/2 ML VIAL IV PRN (23:00)
[2024-11-13] MEDS ORDERED: ACETAMINOPHEN 325 MG TAB PO PRN (23:00)
[2024-11-14 00:40] VITALS: BP 136/86; PULSE 82; RESP 20; TEMP 97.5; O2SAT 96
--- NOTE | 2024-11-14 01:03 | DVH ---
Carotid Duplex Clinical History: syncope Comparison: None Technique: Duplex Doppler evaluation of the extracranial carotid and vertebral arteries including color Doppler and spectral/pulsed waveform analysis was performed. Findings: RIGHT SIDE: The peak systolic velocities are 61 cm/s in the CCA, 52 cm/s in the ICA. The ICA/CCA ratio is 0.9. The external carotid artery is patent with peak systolic velocity of 75 cm/s proximally. There is appropriate antegrade flow in the right vertebral artery. LEFT SIDE: The peak systolic velocities are 100 cm/s in the CCA, 69 cm/s in the ICA. The ICA/CCA ratio is 0.7. The external carotid artery is patent with peak systolic velocity of 80 cm/s proximally. There is appropriate antegrade flow in the left vertebral artery. IMPRESSION: 1. No hemodynamically significant stenosis noted in the right carotid system. 2. No hemodynamically significant stenosis noted in the left carotid system. Reference: Radiology 2003; 229:340-346 Normal ICA PSV is <125 cm/sec and no plaque or intimal thickening is visible sonographically additional criteria include ICA/CCA PSV ratio <2.0 and ICA EDV <40 cm/sec <50% ICA stenosis ICA PSV is <125 cm/sec and plaque or intimal thickening is visible sonographically additional criteria include ICA/CCA PSV ratio <2.0 and ICA EDV <40 cm/sec 50-69% ICA stenosis ICA PSV is 125-230 cm/sec and plaque is visible sonographically additional criteria include ICA/CCA PSV ratio of 2.0-4.0 and ICA EDV of 40-100 cm/sec 70% ICA stenosis but less than near occlusion ICA PSV is >230 cm/sec and visible plaque and luminal narrowing are seen at benjamin-scale and color Dopp ler ultrasound (the higher the Doppler parameters lie above the threshold of 230 cm/sec, the greater the likelihood of severe disease) additional criteria include ICA/CCA PSV ratio >4 and ICA EDV >100 cm/sec
[2024-11-14] MEDS: ACETAMINOPHEN 325 MG TAB PO ONE (02:44)
--- NOTE | 2024-11-14 03:57 | DVHHP2 ---
History of Present Illness Reason for Visit: Syncope History of Present Illness 54-year-old male presents for evaluation syncopal episode. Patient reports having a syncopal episode two days ago. He reports watching TV NS he tried to stand up he became dizzy and passed out. He states that subsequently he has had dizziness with unsteady gait. Denies chest pain or shortness for breath. He also reports an occipital headache. No blurred vision. No other acute complaints. Past Medical History Anxiety, depression and hypertension Past Surgical History Denies Family History Noncontributory Smoke: No ALCOHOL: none Drugs: Marijuana Lives: with Family Review of Systems Review of Systems Review of systems are currently negative otherwise addressed in HPI. Allergies: Coded Allergies: No Known Drug Allergy (Verified Allergy, Unknown, 05/12/18) Medications Current Medications Medications Dose Ordered Sig/Keira Route Start Time Stop Time Status Last Admin Dose Admin Ondansetron HCl 4 mg Q4HP PRN IV 11/13/24 23:00 Acetaminophen 650 mg Q6HP PRN PO 11/13/24 23:00 Exam Vital Signs Vital Signs Date Time Temp Pulse Resp B/P (MAP) Pulse Ox O2 Delivery O2 Flow Rate FiO2 11/14/24 00:40 97.5 82 20 136/86 (103) 96 97.5 Exam Gen: 54-year-old male in no apparent distress. Skin: Warm, dry, normal color and texture, no rash. HEENT: Normocephalic atraumatic, mucous membranes moist and pink. Neck: Cervical and supraclavicular nodes normal without enlargement, trachea is midline, thyroid gland is normal without masses. Pulmonary: Clear to auscultation and percussion bilaterally. Cardiac: Regular rate and rhythm. No murmur Abdomen: Soft, nontender, nondistended, bowel sounds present all 4 quadrants, no guarding, no rigidity, no organomegaly. Extremities: No cyanosis, clubbing, no edema Neuro: Cranial nerves II through XII grossly intact, normal affect and speech, no focal motor deficits. Labs/Xrays ORDERING PHYSICIAN: BAYLEE FRYE MD PROCEDURE(s): CXR1 - CHEST XRAY 1 VIEW REASON: Syncope ORDER NUMBER(s): [id number], ACCESSION NUMBER(s): [id number] CLINICAL HISTORY: Syncope TECHNIQUE: Single view of the chest was obtained. COMPARISON: XY CHEST PORTABLE on DOS: 12/05/23, XY CHEST XRAY 1 VIEW on DOS: 08/17/22, CHEST TWO VIEWS ROUTINE on DOS: 12/06/18 FINDINGS: The heart size and pulmonary vasculature are normal. The lungs are clear. IMPRESSION: NO ACUTE CARDIOPULMONARY PROCESS. RING PHYSICIAN: BAYLEE FRYE MD PROCEDURE(s): HWOCT - HEAD WITHOUT CONTRAST REASON: Syncope, head injury, headache, dizziness ORDER NUMBER(s): [id number], ACCESSION NUMBER(s): [id number] Exam: CT HEAD WITHOUT CONTRAST History: Syncope, head injury, headache, dizziness Technique: [address] images through the posterior fossa and the supratentorial compartment were acquired without contrast and imaged using soft tissue and bone algorithms. RADIATION DOSE: DLP 863.9 mGy.cm; CTDI vol 53.99 mGy. Comparison: CT BRAIN on DOS: 04/24/24, HEAD WITHOUT CONTRAST on DOS: 03/12/21 Findings: There is no evidence of an intracranial hemorrhage, acute large vessel infarct, mass effect, or midline shift. There is no significant cerebral atrophy. No significant calcification of the carotid siphons. The calvarium, orbits, paranasal sinuses, sella, middle ears, and mastoids are u nremarkable. The superficial soft tissues are within normal limits. Impression: 1. No acute intracranial abnormality. RING PHYSICIAN: CHLOE FONSECA PROCEDURE(s): CARCL - CAROTID DUPLX W COLOR DOP REASON: syncope ORDER NUMBER(s): [id number], ACCESSION NUMBER(s): [id number] Carotid Duplex Clinical History: syncope Comparison: None Technique: Duplex Doppler evaluation of the extracranial carotid and vertebral arteries including color Doppler and spectral/pulsed waveform analysis was performed. Findings: RIGHT SIDE: The peak systolic velocities are 61 cm/s in the CCA, 52 cm/s in the ICA. The ICA/CCA ratio is 0.9. The external carotid artery is patent with peak systolic velocity of 75 cm/s proximally. There is appropriate antegrade flow in the right vertebral artery. LEFT SIDE: The peak systolic velocities are 100 cm/s in the CCA, 69 cm/s in the ICA. The IC A/CCA ratio is 0.7. The external carotid artery is patent with peak systolic velocity of 80 cm/s proximally. There is appropriate antegrade flow in the left vertebral artery. IMPRESSION: 1. No hemodynamically significant stenosis noted in the right carotid system. 2. No hemodynamically significant stenosis noted in the left carotid system. Reference: Radiology 2003; 229:340-346 Normal ICA PSV is <125 cm/sec and no plaque or intimal thickening is visible sonographically additional criteria include ICA/CCA PSV ratio <2.0 and ICA EDV <40 cm/sec <50% ICA stenosis ICA PSV is <125 cm/sec and plaque or intimal thickening is visible sonographically additional criteria include ICA/CCA PSV ratio <2.0 and ICA EDV <40 cm/sec 50-69% ICA stenosis ICA PSV is 125-230 cm/sec and plaque is visible sonographically additional criteria include ICA/CCA PSV ratio of 2.0-4.0 and ICA EDV of 40-100 cm/sec 70% ICA stenosis but less than near occlusion ICA PSV is >230 cm/sec and visible plaque and luminal narrowing are seen at benjamin-scale and color Doppler ultrasound (the higher the Doppler parameters lie above the threshold of 230 cm/sec, the greater the likelihood of severe disease) additional criteria include ICA/CCA PSV ratio >4 and ICA EDV >100 cm/sec Labs Test 11/13/24 21:55 11/13/24 20:12 11/13/24 19:40 Range/Units Troponin I High Sensitivity 4 </=54 ng/L Thyroid Stimulating Hormone (TSH) 2.79 0.55-4.78 uIU/mL White Blood Count 7.1 4.4-10.8 10^3/uL Red Blood Count 4.69 4.5-5.90 10^6/uL Hemoglobin 14.9 13.5-17.5 g/dL Hematocrit 41.8 41.0-53.0 % Mean Corpuscular Volume 89.1 80.0-100.0 fL Mean Corpuscular Hemoglobin 31.8 28.0-32.0 pg Mean Corpuscular Hemoglobin Concent 35.7 32.0-36.0 g/dL Red Cell Distribution Width 14.4 H 11.8-14.3 % Platelet Count 220 140-450 10^3/uL Mean Platelet Volume 7.2 6.9-10.8 fL Neutrophils (%) (Auto) 54.6 37.0-80.0 % Lymphocytes (%) (Auto) 35.9 10.0-50.0 % Monocytes (%) (Auto) 7.5 0.0-12.0 % Eosinophils (%) (Auto) 1.4 0.0-7.0 % Basophils (%) (Auto) 0.6 0.0-2.0 % Neutrophils # (Auto) 3.9 1.6-8.6 10 ^3/uL Lymphocytes # (Auto) 2.6 0.4-5.4 10 ^3/uL Monocytes # (Auto) 0.5 0-1.3 10 ^3/uL Eosinophils # (Auto) 0.1 0-0.8 10 ^3/uL Basophils # (Auto) 0 0-0.2 10 ^3/uL Nucleated Red Blood Cells 0.1 % Sodium Level 145 136-145 mmol/L Potassium Level 3.8 3.5-5.1 mmol/L Chloride Level 111 H 98-107 mmol/L Carbon Dioxide Level 21 20-31 mmol/L Anion Gap 13 5-15 Blood Urea Nitrogen 12 9-23 mg/dL Creatinine 1.28 0.700-1.30 mg/dL Glomerular Filtration Rate Calc 66 >90 mL/min BUN/Creatinine Ratio 9.4 L 10.0-20.0 Serum Glucose 89 74-106 mg/dL Calcium Level 8.9 8.7-10.4 mg/dL B-Type Natriuretic Peptide 13.20 0-100 pg/mL POC Glucose 88 70-106 mg/dl SEPSIS Sepsis Screen Date sepsis recognized/suspect: Nov 13, 2024 Time Sepsis recognized/suspect: 1931 Recent Procedure: No On Antibiotic Therapy: No Respiratory Rate >20: No Heart Rate >90: No Temp<36 C (96.8 F) or >38.3 C: No SBP <90 or MAP <65 mmHG: No New Acute Mental Status Change: No Is the patient on CPAP, BIPAP,: No Physician Orders Cloth Weigher (11/13/24 ) Orthostatic Vital Signs (11/13/24 ) Saline Lock (11/13/24 20:04) Fall Precautions Initiated (11/13/24 20:04) Chest Xray 1 View (11/13/24 20:04) Head Without Contrast (11/13/24 20:04) Brain Head Wo Contrast (11/13/24 22:54) Admit (11/13/24 22:54) Ondansetron Hcl (Zofran) (11/13/24 23:00) Cardiac Diet-2gna,Lofat,Lochol (11/14/24 Breakfast) Echo 2d Mode Cardiac Dop (11/13/24 22:54) Carotid Duplx W Color Dop (11/13/24 22:54) Condition: Stable (11/13/24 22:54) Acetaminophen Tablet (Tylenol Tablet) (11/13/24 23:00) Bedrest With Bathroom Privileg (11/13/24 22:54) Vital Signs Date Time Temp Pulse Resp B/P (MAP) Pulse Ox O2 Delivery O2 Flow Rate FiO2 11/14/24 00:40 97.5 82 20 136/86 (103) 96 97.5 11/13/24 22:03 97.5 72 16 143/91 (108) 97 97.5 11/13/24 20:18 74 Laboratory Tests Test 11/13/24 20:12 White Blood Count 7.1 10^3/uL (4.4-10.8) Medications Medications Dose Ordered Sig/Keira Route Start Time Stop Time Status Last Admin Dose Admin Acetaminophen 650 mg ONCE ONCE PO 11/13/24 22:45 11/13/24 22:46 DC 11/14/24 02:44 650 MG Sodium Chloride 1,000 ml @ 1,000 mls/hr Q1H ONCE IV 11/13/24 20:15 11/13/24 21:14 DC 11/13/24 21:23 1,000 MLS/HR Assessment/Plan Assessment/Plan Assessment Syncope Hypertension Plan Admit the patient to Med surge to the hospitalist Carotid ultrasound/echocardiogram/MRI of the brain Resume home medications Continue treatment per orders. Plan discussed with: Patient My Orders Orders - CHLOE FONSECA Procedure Category Date Status Time Brain Head Wo Contrast MRI 11/13/24 Logged 22:54 Admit ADMIT 11/13/24 Transmitted 22:54 Ondansetron Hcl PHA 11/13/24 In Process (Zofran) 23:00 Cardiac DIET 11/14/24 Transmitted Diet-2gna,Lofat,Lochol Breakfast Echo 2d Mode Cardiac US 11/13/24 Logged DOP 22:54 Carotid Duplx W Color US 11/13/24 Resulted DOP 22:54 Condition: Stable EMILY 11/13/24 In Process 22:54 Acetaminophen Tablet PHA 11/13/24 In Process (Tylenol Tablet) 23:00 Bedrest With Bathroom EMILY 11/13/24 In Process Privileg 22:54 Date of Service: Nov 13, 2024 Billing Provider: CHLOE FONSECA Common Visit Codes: [id number] INP/OBS CARE (HIGH) CHLOE FONSECA Nov 14, 2024 03:57
--- NOTE | 2024-11-14 11:30 | DVHPN2 ---
Objective Vitals Vital Signs Date Time Temp Pulse Resp B/P (MAP) Pulse Ox O2 Delivery O2 Flow Rate FiO2 11/14/24 00:40 97.5 82 20 136/86 (103) 96 97.5 Intake/Output Intake and Output 11/14/24 07:00 Intake Total 1000 ml Balance 1000 ml Intake IV Total 1000 ml Medications Current Medications Medications Dose Ordered Sig/Keira Route Start Time Stop Time Status Last Admin Dose Admin Ondansetron HCl 4 mg Q4HP PRN IV 11/13/24 23:00 Acetaminophen 650 mg Q6HP PRN PO 11/13/24 23:00 Laboratory Results Laboratory Tests 11/13/24 20:12 Chemistry Test 11/13/24 20:12 Calcium Level 8.9 mg/dL (8.7-10.4) Cardiac Markers Test 11/13/24 20:12 B-Type Natriuretic Peptide 13.20 pg/mL (0-100) HgA1c, TSH Test 11/13/24 21:55 Thyroid Stimulating Hormone (TSH) 2.79 uIU/mL (0.55-4.78) NATASHA DELGADO MD Nov 14, 2024 11:30
--- NOTE | 2024-11-14 13:26 | DVHDS2 ---
Discharge Summary Date of Admission Nov 13, 2024 at 22:54 Date of Discharge: Nov 14, 2024 Admitting Diagnosis Syncope Hypertension Labs/Diagnostic Data: Laboratory Results Test 11/13/24 21:55 11/13/24 20:12 11/13/24 19:40 Troponin I High Sensitivity 4 ng/L (</=54) Thyroid Stimulating Hormone (TSH) 2.79 uIU/mL (0.55-4.78) White Blood Count 7.1 10^3/uL (4.4-10.8) Red Blood Count 4.69 10^6/uL (4.5-5.90) Hemoglobin 14.9 g/dL (13.5-17.5) Hematocrit 41.8 % (41.0-53.0) Mean Corpuscular Volume 89.1 fL (80.0-100.0) Mean Corpuscular Hemoglobin 31.8 pg (28.0-32.0) Mean Corpuscular Hemoglobin Concent 35.7 g/dL (32.0-36.0) Red Cell Distribution Width 14.4 % (11.8-14.3) Platelet Count 220 10^3/uL (140-450) Mean Platelet Volume 7.2 fL (6.9-10.8) Neutrophils (%) (Auto) 54.6 % (37.0-80.0) Lymphocytes (%) (Auto) 35.9 % (10.0-50.0) Monocytes (%) (Auto) 7.5 % (0.0-12.0) Eosinophils (%) (Auto) 1.4 % (0.0-7.0) Basophils (%) (Auto) 0.6 % (0.0-2.0) Neutrophils # (Auto) 3.9 10 ^3/uL (1.6-8.6) Lymphocytes # (Auto) 2.6 10 ^3/uL (0.4-5.4) Monocytes # (Auto) 0.5 10 ^3/uL (0-1.3) Eosinophils # (Auto) 0.1 10 ^3/uL (0-0.8) Basophils # (Auto) 0 10 ^3/uL (0-0.2) Nucleated Red Blood Cells 0.1 % Sodium Level 145 mmol/L (136-145) Potassium Level 3.8 mmol/L (3.5-5.1) Chloride Level 111 mmol/L (98-107) Carbon Dioxide Level 21 mmol/L (20-31) Anion Gap 13 (5-15) Blood Urea Nitrogen 12 mg/dL (9-23) Creatinine 1.28 mg/dL (0.700-1.30) Glomerular Filtration Rate Calc 66 mL/min (>90) BUN/Creatinine Ratio 9.4 (10.0-20.0) Serum Glucose 89 mg/dL (74-106) Calcium Level 8.9 mg/dL (8.7-10.4) B-Type Natriuretic Peptide 13.20 pg/mL (0-100) POC Glucose 88 mg/dl (70-106) Other Laboratory Tests 11/13/24 20:12 Brief Hx & Hospital Course: 54-year-old male presents for evaluation syncopal episode. Patient reports having a syncopal episode two days ago. He reports watching TV NS he tried to stand up he became dizzy and passed out. He states that subsequently he has had dizziness with unsteady gait. Denies chest pain or shortness for breath. He also reports an occipital headache. No blurred vision. No other acute complaints. CT head showed no acute process. Ultrasound carotid showed no stenosis. The patient is supposed to have an MRI but he and eloped from the emergency department. This medical document was created using an electronic medical record system with [employer] direct computerized dictation system. Although this document has been carefully reviewed, there may still be some phonetic and typographical errors. These areas are purely typographical due to imperfections of the software programs, and do not reflect any compromise in the patient's medical care. Condition at Discharge: Guarded Final Diagnosis/Problems List Syncope Hypertension Discharge Disposition: Eloped Discharge Instruct/Medications Scheduled Hydrocortisone Acetate (Anusol-Hc), 1 SUPP VA BID Lorazepam (Ativan Tablet), 1 TAB PO HS, (Reported) Pantoprazole Sodium Sesquihydr (Pantoprazole Sodium), 40 MG PO DAILY Quetiapine Fumerate (Seroquel Xr), 200 MG PO HS, (Reported) Trazodone Hcl (Trazodone Hcl), 300 MG PO HS, (Reported) Scheduled PRN Cyclobenzaprine Hcl (Cyclobenzaprine Hcl), 10 MG PO Q8HP PRN for FOR MUSCLE SPASM, (Reported) Escitalopram Oxalate (Escitalopram Oxalate), 1 TAB PO HS PRN for ANXIETY, (Reported) Discharge Statement: "Patient was advised to return to the ER or call 911 if any headaches, dizziness, shortness of breath, chest pain, abdominal pain, bleeding, fevers, or worsening of medical condition. Patient was counseled about treatment plan, medications, possible side effects, patientverbalized understanding. All questions were answered to the best of my ability. This discharge took greater then 30 minutes in planning, reviewing documentation, counseling the patient, and discussing with other team members." ASSESSMENT ASSESSMENT Assessment Date of Service: Nov 14, 2024 Billing Provider: NATASHA DELGADO MD Common Visit Codes: [id number] DISCH DAY >30min NATASHA DELGADO MD Nov 14, 2024 13:26
== END 2024-11-14 10:25 | disposition left against medical advice (07) | DRG 48 ==
LOC: ER 19:25 → OVERFLOW 22:54
PROVIDERS: ADMIT Internal Medicine; ATTEND Internal Medicine
DX: G90.89 Other disorders of autonomic nervous system (principal); F41.9 Anxiety disorder, unspecified; I10 Essential (primary) hypertension; Z87.11 Personal history of peptic ulcer disease
CPT/HCPCS: 36415; 70450; 71045; 80048; 82962; 83880; 84443; 84484; 85025; 93005; 93886; 96361; G0378

== ENCOUNTER 2025-01-06 15:46 | Outpatient (CLI) | payer MEDICAID ==
[2025-01-08 07:07] LABS: Chlamydia Trachomatis, NAA Negative (Negative); Neisseria gonorrhoeae, NAA Negative (Negative)
[2025-01-08 11:48] LABS: Hepatitis A Total Antibody Positive (Negative); Hepatitis B Surface Antigen Negative (Negative); Hepatitis C Antibody Negative (Negative)
== END 2025-01-06 17:00 | disposition home or self-care (01) ==
LOC: LAB 15:46
PROVIDERS: ATTEND Internal Medicine
DX: Z11.3 Encounter for screening for infections with a predominantly sexual mode of transmission (principal); Z11.59 Encounter for screening for other viral diseases
CPT/HCPCS: 36415; 86703; 86704; 86706; 86708; 86780; 86803; 87340

== ENCOUNTER 2025-01-07 13:04 | Emergency (ER) | payer MEDICAID ==
[~2025-01-07] VITALS: Ht 167.6 cm; Wt 79.3 kg
--- NOTE | 2025-01-07 13:40 | ED.PDOC ---
Psychiatric HPI Comments 54 y/o M, with PMHx of alcohol abuse, anxiety, and depression presents to the ED for CC anxiety, self medicating with alcohol, concerns of alcohol withdrawal. Patient states, he has been sober from alcohol x1 year and relapsed [id number] ago and has been drinking every day since then. Patient reports, to drinking x2 alcoholic drinks every [id number] to help alleviate symptoms of nausea. Patient denies vomiting, headache, dizziness, suicidal ideation, auditory or visual hallucinations. No other symptoms or modifying factors are present at this time. Chief Complaint: Withdrawal Time Seen by MD: 13:10 Primary Care Provider: DOROTHY Mode of Arrival: Ambulatory Past Medical History PAST MEDICAL HISTORY: Anxiety, Depression, PUD Surgical History: Denies all surgeries Family History Family History: Unknown Social History Smoker: Non-Smoker Alcohol: Heavy Drugs: Marijuana Lives In: Home Constitutional: denies: chills, diaphoresis, fatigue, fever, malaise, sweats, weakness, others EENTM: denies: blurred vision, double vision, ear bleeding, ear discharge, ear drainage, ear pain, ear ringing, eye pain, eye redness, hearing loss, mouth pain, mouth swelling, nasal discharge, nose bleeding, nose congestion, nose pain, photophobia, tearing, throat pain, throat swelling, voice changes, others Respiratory: denies: cough, hemoptysis, orthopnea, SOB at rest, shortness of breath, SOB with excertion, stridor, wheezing, others Cardiovascular: denies: chest pain, dizzy spells, diaphoresis, Dyspnea on exertion, edema, irregular heart beat, left arm pain, lightheadedness, palpitations, PND, syncope, others Gastrointestinal: reports: nausea; denies: abdomen distended, abdominal pain, blood streaked bowels, constipated, diarrhea, dysphagia, difficulty swallowing, hematemesis, melena, poor appetite, poor fluid intake, rectal bleeding, rectal pain, vomiting, others Genitourinary: denies: burning, dysuria, flank pain, frequency, hematuria, incontinence, penile discharge, penile sore, pain, testicle pain, testicle swelling, urgency, others Neurological: denies: dizziness, fainting, headache, left sided numbness, left sided weakness, numbness, paresthesia, pre-existing deficit, right sided numbness, right sided weakness, seizure, speech problems, tingling, tremors, weakness, others Musculoskeletal: denies: back pain, gout, joint pain, joint swelling, muscle pain, muscle stiffness, neck pain, others Integumetry: denies: bruises, change in color, change in hair/nails, dryness, laceration, lesions, lumps, rash, wounds, others Allergic/Immunocompromised: denies: Difficulty Healing, Frequent Infections, Hives, Itching, others Hematologic/Lymphatic: denies: anemia, blood clots, easy bleeding, easy bruising, swollen glands, others Endocrine: denies: excessive hunger, excessive sweating, excessive thirst, excessive urination, flushing, intolerance to cold, intolerance to heat, unexplained weight gain, unexplained weight loss, others Psychiatric: denies: anxiety, bipolar disorder, depression, hopeless, panic disorder, schizophrenia, sleepless, suicidal, others All Other Systems: Reviewed and Negative Physical Exam General Appearance: Normal HEENT: Normal ENT Inspection, Pharynx Normal Neck: Normal, Normal Inspection Respiratory: No Accessory Muscle Use, No Respiratory Distress, Normal Breath Sounds Cardiovascular: No Edema, No Murmur, Normal Peripheral Pulses, Regular Rate/Rhythm Breast Exam: Deferred Gastrointestinal: Non Tender, Normal Bowel Sounds, Soft Genitalia: Deferred Pelvic: Deferred Rectal: Decreased tone Extremities: Normal inspection, Normal range of motion, Non-tender Neurologic: Alert, No Motor Deficits, No Sensory Deficits Cerebellar Function: Normal Reflexes: NOT DONE Skin: NOT DONE Lymphatic: NOT DONE Was a procedure done? Was a procedure done?: No Psych Differential Dx Intoxication Differential Dx: Alcohol Withdraw Syndrome, Intoxication X-Ray, Labs, Meds, VS Vital Signs Date Time Temp Pulse Resp B/P (MAP) Pulse Ox O2 Delivery O2 Flow Rate FiO2 01/07/25 15:43 71 16 143/106 (118) 99 01/07/25 15:10 97.5 70 18 164/106 (125) 97 97.5 01/07/25 13:07 98.5 74 18 166/114 97 98.5 Lab Test 01/07/25 13:34 Range/Units White Blood Count 4.8 4.4-10.8 10^3/uL Red Blood Count 4.83 4.5-5.90 10^6/uL Hemoglobin 15.1 13.5-17.5 g/dL Hematocrit 44.4 41.0-53.0 % Mean Corpuscular Volume 91.8 80.0-100.0 fL Mean Corpuscular Hemoglobin 31.2 28.0-32.0 pg Mean Corpuscular Hemoglobin Concent 34.0 32.0-36.0 g/dL Red Cell Distribution Width 13.9 11.8-14.3 % Platelet Count 176 140-450 10^3/uL Mean Platelet Volume 7.4 6.9-10.8 fL Neutrophils (%) (Auto) 47.9 37.0-80.0 % Lymphocytes (%) (Auto) 44.3 10.0-50.0 % Monocytes (%) (Auto) 5.3 0.0-12.0 % Eosinophils (%) (Auto) 1.7 0.0-7.0 % Basophils (%) (Auto) 0.8 0.0-2.0 % Neutrophils # (Auto) 2.3 1.6-8.6 10 ^3/uL Lymphocytes # (Auto) 2.1 0.4-5.4 10 ^3/uL Monocytes # (Auto) 0.3 0-1.3 10 ^3/uL Eosinophils # (Auto) 0.1 0-0.8 10 ^3/uL Basophils # (Auto) 0 0-0.2 10 ^3/uL Nucleated Red Blood Cells 0.1 % Sodium Level 140 136-145 mmol/L Potassium Level 4.3 3.5-5.1 mmol/L Chloride Level 107 98-107 mmol/L Carbon Dioxide Level 21 20-31 mmol/L Anion Gap 12 5-15 Blood Urea Nitrogen 13 9-23 mg/dL Creatinine 1.19 0.700-1.30 mg/dL Glomerular Filtration Rate Calc 72 >90 mL/min BUN/Creatinine Ratio 10.9 10.0-20.0 Serum Glucose 99 74-106 mg/dL Calcium Level 10.0 8.7-10.4 mg/dL Total Bilirubin 0.5 0.2-1.0 mg/dL Aspartate Amino Transferase (AST) 48 H 13-40 U/L Alanine Aminotransferase (ALT) 50 H 7-40 U/L Alkaline Phosphatase 92 46-116 U/L Total Protein 8.0 5.7-8.2 g/dL Albumin 4.5 3.2-4.8 g/dL Lipase 39 12-53 U/L Plasma/Serum Blood Alcohol < 3.0 <10 mg/dL Current Medications Medications (Trade) Dose Ordered Sig/Keira Route Start Time Stop Time Status Last Admin Famotidine (Pepcid Tablet) 20 mg ONCE ONCE PO 01/07/25 13:30 01/07/25 13:31 DC 01/07/25 15:16 Ondansetron HCl (Zofran Po) 4 mg ONCE ONCE PO 01/07/25 13:30 01/07/25 13:31 DC 01/07/25 15:16 Al Hydrox/Mg Hydrox/Simethicone (Maalox Plus) 30 ml ONCE ONCE PO 01/07/25 13:30 01/07/25 13:31 DC 01/07/25 15:15 Gabapentin (Neurontin Capsule) 300 mg ONCE ONCE PO 01/07/25 13:30 01/07/25 13:31 DC 01/07/25 15:16 Time of 1ST Reevaluation: 13:40 Reevaluation 1ST: Unchanged Time of 2ND Reevaluation: 17:01 Reevaluation 2ND: Improved Patient Education/Counseling: Diagnosis, Treatment, Prognosis, Need For Follow Up Family Education/Counseling: No Family Present Departure 1 Departure Time of Disposition: 17:02 (54 y/o M, with PMHx of alcohol abuse, anxiety, and depression presents to the ED for CC anxiety, self medicating with alcohol, concerns of alcohol withdrawal. Patient reports relapsing a few weeks ago and has been drinking every day since then. Strings that he is going into withdrawal. However, has no tongue fasciculations, he appears to have volitional tremulousness. However, given the reports of his symptoms could be consistent with mild alcohol withdrawal. Alcohol level today is negative. Patient was requesting 1 IV Ativan by name, however, informed that he would not get such medications as he does not appear to be in florid withdrawal. He was instead given a dose of oral gabapentin. Patient reports some nausea, however, no abdominal pain. Given the heavy history of alcohol use could have gastritis. CBC today with no evidence of critical leukocytosis or significant anemia. Metabolic panel today with no evidence of any acute electrolyte abnormalities. Mild transaminitis, related to alcohol use. Patient was given oral Pepcid, Maalox, Zofran for his upset stomach, nausea. Not actually vomiting here, tolerating oral intake. Patient remained hemodynamically stable. Explained to the patient that his symptoms are related to his alcohol abuse. He is recommended to to go back to rehab further assistance with his alcohol abuse. Patient also states that while he was in the emergency department he called his primary care doctor and scheduled a follow up appointment with them. Patient ap pears well here, stable for discharge further outpatient management.) Impression: Primary Impression: Anxiety Additional Impressions: Tremulousness Nausea Alcohol abuse Disposition: HOME / SELF CARE / HOMELESS Condition: Stable Discharged With: Self Critical Care Note Critical Care Time?: No Stability Stability form required: No Heart Score Heart Score: Heart Score Response (Comments) Value History N/A 0 EKG N/A 0 Age N/A 0 Risk Factors N/A 0 Troponin N/A 0 Total 0 I personally scribed for JUDI ZARATE MD ([email or web address]) on 01/07/25 at 13:40. Electronically submitted by Jen Colin ([email or web address]). JUDI ZARATE MD Jan 07, 2025 13:40
[2025-01-07 13:58] LABS: Hematocrit 44.4 % (41.0-53.0); Hemoglobin 15.1 g/dL (13.5-17.5); Mean Corpuscular Hemoglobin 31.2 pg (28.0-32.0); Mean Corpuscular Volume 91.8 fL (80.0-100.0); Nucleated Red Blood Cells % 0.1 %
[2025-01-07 14:11] LABS: Albumin 4.5 g/dL (3.2-4.8); Alkaline Phosphatase 92 U/L (46-116); Anion Gap 12 (5-15); BUN/Creatinine Ratio 10.9 (10.0-20.0); Bilirubin, Total 0.5 mg/dL (0.2-1.0); Blood Urea Nitrogen 13 mg/dL (9-23); Calcium 10.0 mg/dL (8.7-10.4); Carbon Dioxide 21 mmol/L (20-31); Chloride 107 mmol/L (98-107); Glucose 99 mg/dL (74-106); Lipase 39 U/L (12-53); Potassium 4.3 mmol/L (3.5-5.1); Sodium 140 mmol/L (136-145); Total Protein 8.0 g/dL (5.7-8.2)
[2025-01-07 14:12] LABS: Alanine Aminotransferase 50 U/L (7-40)
[2025-01-07 15:10] VITALS: TEMP 97.5
[2025-01-07] MEDS: MAALOX PLUS or MAALOX 30 ML PO ONE (15:15)
[2025-01-07] MEDS: ONDANSETRON ODT 4 MG TAB PO ONE (15:16)
[2025-01-07] MEDS: GABAPENTIN 300 MG CAP PO ONE (15:16)
[2025-01-07] MEDS: FAMOTIDINE 20 MG TAB PO ONE (15:16)
[2025-01-07 15:43] VITALS: BP 143/106; PULSE 71; RESP 16; O2SAT 99
== END 2025-01-07 18:49 | disposition home or self-care (01) ==
LOC: ER 13:04
DX: F41.9 Anxiety disorder, unspecified (principal); G25.2 Other specified forms of tremor; R11.0 Nausea; F10.10 Alcohol abuse, uncomplicated; Z79.899 Other long term (current) drug therapy
CPT/HCPCS: 36415; 80053; 80320; 83690; 85025; 99284; Q0162